=== PATIENT | male | born 1965 | race Caucasian/White ===

== ENCOUNTER 2016-10-10 11:21 | Emergency (ER) | payer MEDICARE, MEDICAID ==
[~2016-10-10] VITALS: Ht 170.2 cm; Wt 53.1 kg
[~2016-10-10 11:21] MED LIST: ACYC200C PO; ALPR1T PO; ALPR2TAB2 PO; AMPH15TA2 PO; AMPH30TA2 PO; DOXY100C2 PO; EFAV1TAB3 PO; EMTR1TAB9 PO; HDR4T PO; HYDR-229 PO; HYDR-3156 PO; HYDR25CA5 PO; HYDR4TAB PO; HYDR50CA3 PO; LD2JL30 EXT; OSLT75C PO; OXYC-12 PO; OXYC-465 PO; OXYC40TA49 PO; OXYC60TA9 PO; SULF1TAB35 PO
--- OUTSIDE RECORDS SUMMARY | 2016-10-10 11:26 | XMS REPORT | Continuity of Care Document ---
Author Author Interface Organization Interface Address Unknown Phone Unavailable Problems Problem Status Onset Date Classification Date Reported Comments Source Medications Medication Details Route Status Patient Instructions Ordering Provider Order Date Source Allergies, Adverse Reactions, Alerts Substance Category Reaction Severity Reaction type Status Date Reported Comments Source Immunizations Immunization Date Given Site Status Last Updated Comments Source Results Order Name Results Value Reference Range Date Interpretation Comments Source Vital Signs Vital Sign Value Date Comments Source Encounters Location Location Details Encounter Type Encounter Number Reason For Visit Attending Provider ADM Date DC Date Status [id number] Emergency [id number] PHONG MCDANIELS 07/28/2012 07/28/2012 Active [facility] Procedures Procedure Code Date Perfomer Comments Source
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
--- NOTE | 2016-10-10 13:09 | Diagnostic Imaging Report ---
Three views of the right shoulder. INDICATION: Injury. FINDINGS: There is a fracture of the medial aspect of the acromion where it attaches to the body of the scapula. There is mild displacement. The proximal humerus appears unremarkable. There is slight superior subluxation of the clavicle relative to the acromion at the acromioclavicular joint. The coracoclavicular interval is not widened. No radiopaque foreign body seen. IMPRESSION: 1. Fracture of the medial aspect of the acromion and superior margin of the scapula with slight displacement. 2. Suggestion of slight superior translation of the clavicle relative to the acromion at the acromioclavicular joint. The findings were called to Dr. Martin by Dr. Rubin at time of dictation. Dictated by: Dictated on workstation # [id number]
[2016-10-10] MEDS ORDERED: IBUPROFEN TABLET 200 MG TAB PO ONE (13:45)
[2016-10-10 13:50] VITALS: BP 134/97
== END 2016-10-10 13:50 | disposition home or self-care (01) ==
LOC: EDUNIT# 11:21 → ER 11:22
DX: S42.121A Displaced fracture of acromial process, right shoulder, initial encounter for closed fracture (principal); W00.0XXA Fall on same level due to ice and snow, initial encounter; Y99.8 Other external cause status
CPT/HCPCS: 73030

== ENCOUNTER 2017-01-06 11:04 | Emergency (ER) | payer MEDICARE, MEDICAID ==
[~2017-01-06] VITALS: Ht 172.7 cm; Wt 68.0 kg
--- NOTE | 2017-01-06 11:14 | ED Cough/URI ---
General Stated Complaint: NAUSEA, VOMITTING Source: patient, EMS Exam Limitations: no limitations History of Present Illness Time seen by provider: 11:13 Initial Comments This HIV positive male presents to ER per EMS from home with reports of a cough that resulted in posttussive emesis of 2 weeks duration. Cough is productive. No fevers. He also has nasal congestion. He states that he has been compliant with taking his HIV medications. Timing/Duration: constant Severity/Quality: moderate Associated Symptoms: cough, nasal congestion Allergies and Home Medications Allergies Coded Allergies: codeine (Verified Allergy, Unknown, 01/18/16) hydrocodone (Verified Allergy, Unknown, 01/18/16) Home Medications Alprazolam 2 Mg Tablet, 2 MG PO HS, (Reported) Amphet Asp/Amphet/D-Amphet 30 Mg Tablet, 30 MG PO BID, (Reported) Emtricitab/Rilpivirine/Tenofov 1 Each Tablet, 1 EACH PO DAILY, (Reported) Oxycodone Hcl 60 Mg Tab.sr.12h, 60 MG PO BID, (Reported) Oxycodone Hcl/Acetaminophen 1 Each Tablet, 1 EACH PO Q6H, #24 Ref 0 Prescribed by: ERLINDA LANGFORD on 09/08/14 1557 Constitutional: see HPI, No chills EENTM: see HPI Respiratory: see HPI, cough Genitourinary: no symptoms reported Musculoskeletal: no symptoms reported Skin: no symptoms reported Psychiatric/Neurological: No Symptoms Reported Hematologic/Lymphatic: No Symptoms Reported Past Vmuqxlh-Nywowe-Aabqsf Hx Patient Social History Type Used: Cigarettes Former Smoker/When Quit: Sep 28, 2013 Recent Hopitalizations: No Immunizations Up To Date Tetanus Booster (TDap): Less than 5yrs Date of Pneumonia Vaccine: Sep 28, 2012 Date of Influenza Vaccine: Jun 28, 2013 Seasonal Allergies Seasonal Allergies: No Surgeries HX Surgeries: Yes (JAW FX/ORIF, ANAL TRAUMA SURGERY) Respiratory Hx Respiratory Disorders: No Cardiovascular Hx Cardiac Disorders: Yes Cardiac Disorders: Syncope Neurological Hx Neurological Disorders: Yes (SYNCOPE) Reproductive System HIV/AIDS: Yes Genitourinary Hx Genitourinary Disorders: No Gastrointestinal Hx Gastrointestinal Disorders: Yes (HEPATITIS C, HIV +) Gastrointestinal Disorders: Hepatitis Musculoskeletal Hx Musculoskeletal Disorders: Yes Musculoskeletal Disorders: Fibromyalgia, Chronic Back Pain Endocrine Hx Endocrine Disorders: No HEENT HX ENT Disorders: No Cancer Hx Cancer: No Psychosocial Hx Psychiatric Problems: Yes Behavioral Health Disorders: ADD/ADHD, Sleep Difficulties, Anxiety Integumentary HX Skin/Integumentary Disorder: No Blood Transfusions Hx Blood Disorders: No Physical Exam Vital Signs Vital Sign - Last 12Hours 01/06/17 11:04 Temp 97.5 Pulse 86 Resp 18 B/P (MAP) 122/98 Pulse Ox 98 Capillary Refill : General Appearance: WD/WN, no apparent distress Eyes: Bilateral Eye EOMI, Bilateral Eye Normal Inspection, Bilateral Eye PERRL HEENT: PERRL/EOMI, normal ENT inspection, TMs normal Neck: non-tender, full range of motion Respiratory: no respiratory distress, no accessory muscle use, rhonchi Cardiovascular: regular rate, rhythm, no murmur Gastrointestinal: normal bowel sounds, non tender, soft Extremities: normal range of motion, non-tender Neurologic/Psychiatric: alert, normal mood/affect, oriented x 3 Skin: normal color, warm/dry Laceration Repair : Suture Size: 5-0 Progress/Results/Core Measures Results/Orders Lab Results Laboratory Tests Test 01/06/17 11:42 01/06/17 12:20 Range/Units White Blood Count 7.9 4.3-11.0 10^3/uL Red Blood Count 6.08 H 4.35-5.85 10^6/uL Hemoglobin 13.8 13.3-17.7 G/DL Hematocrit 43 40-54 % Mean Corpuscular Volume 71 L 80-99 FL Mean Corpuscular Hemoglobin 23 L 25-34 PG Mean Corpuscular Hemoglobin Concent 32 32-36 G/DL Red Cell Distribution Width 14.7 H 10.0-14.5 % Platelet Count 191 130-400 10^3/uL Mean Platelet Volume 7.4-10.4 FL Neutrophils (%) (Auto) 56 42-75 % Lymphocytes (%) (Auto) 28 12-44 % Monocytes (%) (Auto) 14 H 0-12 % Eosinophils (%) (Auto) 2 0-10 % Basophils (%) (Auto) 1 0-10 % Neutrophils # (Auto) 4.4 1.8-7.8 X 10^3 Lymphocytes # (Auto) 2.2 1.0-4.0 X 10^3 Monocytes # (Auto) 1.1 H 0.0-1.0 X 10^3 Eosinophils # (Auto) 0.1 0.0-0.3 10^3/uL Basophils # (Auto) 0.0 0.0-0.1 10^3/uL Sodium Level 135 135-145 MMOL/L Potassium Level 4.4 3.6-5.0 MMOL/L Chloride Level 102 98-107 MMOL/L Carbon Dioxide Level 24 21-32 MMOL/L Anion Gap 9 5-14 MMOL/L Blood Urea Nitrogen 13 7-18 MG/DL Creatinine 0.77 0.60-1.30 MG/DL Estimat Glomerular Filtration Rate > 60 BUN/Creatinine Ratio 17 Glucose Level 74 70-105 MG/DL Calcium Level 8.7 8.5-10.1 MG/DL Total Bilirubin 0.6 0.1-1.0 MG/DL Aspartate Amino Transf (AST/SGOT) 38 H 5-34 U/L Alanine Aminotransferase (ALT/SGPT) 32 0-55 U/L Alkaline Phosphatase 94 40-136 U/L Total Protein 9.1 H 6.4-8.2 G/DL Albumin 3.7 3.2-4.5 G/DL My Orders Orders - AISSATOU REDDY APRN Cbc With Automated Diff (01/06/17 11:12) Comprehensive Metabolic Panel (01/06/17 11:12) Chest Pa/Lat (2 View) (01/06/17 11:12) Sputum Culture (01/06/17 11:12) Vital Signs/I&O Vital Sign - Last 12Hours 01/06/17 11:04 Temp 97.5 Pulse 86 Resp 18 B/P (MAP) 122/98 Pulse Ox 98 Diagnostic Imaging Diagonstic Imaging: Xray Plain Films/CT/US/NM/MRI: chest Comments NAME: KIMBERLY RIVERO [facility] REC#: [id number] PT STATUS: REG ER : 1965 PHYSICIAN: AISSATOU REDDY APRN ADMIT DATE: 01/06/17/ER Draft Date of Exam:01/06/17 CHEST PA/LAT (2 VIEW) PA and lateral views of the chest. INDICATION: Chest tightness, productive cough, and shortness of breath. FINDINGS: In the left lung apex there is an area of opacity with lucency and evidence of traction to the trachea similar to 06/16/2016. This is suggestive of fibrotic changes. There is also area of mild scarring in the perihilar region bilaterally. A small area of right infrahilar atelectasis or infiltrate is seen, new from the prior exam. The heart size is normal. No effusion or pneumothorax. The mediastinum and ekaterina appear unremarkable. IMPRESSION: Background fibrotic changes presumably related to prior old infections. There is new mild right basilar infiltrate or atelectasis. Dictated on workstation # [id number] Dict: 01/06/17 1135 Trans: 01/06/17 1148 [id number] Interpreted by: SHYAM GONZALEZ MD Electronically signed by: Departure Communication Progress Notes We will treat his pneumonia empirically as an outpatient given that he is not hypoxic and requires no supportive therapy with Bactrim and Levaquin. Levaquin to cover the typical lobar pneumonia pathogens and Bactrim to cover for Pneumocystis jiroveci since he is immunocompromised and his compliance with antiretroviral therapy is questionable. Impression Impression: Primary Impression: Pneumonia Disposition: 01 HOME, SELF-CARE Condition: Improved Departure-Patient Inst. Decision time for Depature: 13:13 Referrals: NO,LOCAL PHYSICIAN (PCP/Family) Primary Care Physician Patient Instructions: Community-Acquired Pneumonia in Adults Add. Discharge Instructions: 1. Antibiotics as directed 2. Return to ER for any concerns 3. See your doctor later this week for recheck Scripts Levofloxacin (Levaquin) 500 Mg Tablet 500 MG PO DAILY for 7 Days, TAB Prov: AISSATOU REDDY APRN 01/06/17 Sulfamethoxazole/Trimethoprim (Bactrim Ds Tablet) 1 Each Tablet 1 EACH PO BID, #20 TAB Prov: AISSATOU REDDY APRN 01/06/17 AISSATOU REDDY APRN Jan 06, 2017 11:14
[2017-01-06 11:49] LABS: BASOPHILS % (AUTO) 1 % (0-10); EOSINOPHILS # (AUTO) 0.1 10^3/uL (0.0-0.3); EOSINOPHILS % (AUTO) 2 % (0-10); LYMPHOCYTES # (AUTO) 2.2 X 10^3 (1.0-4.0); LYMPHOCYTES % (AUTO) 28 % (12-44); MEAN CORPUSCULAR HEMOGLOBIN 23 PG (25-34); MEAN CORPUSCULAR HGB CONC 32 G/DL (32-36); MEAN CORPUSCULAR VOLUME 71 FL (80-99); MONOCYTES # (AUTO) 1.1 X 10^3 (0.0-1.0); MONOCYTES % (AUTO) 14 % (0-12); NEUTROPHILS # (AUTO) 4.4 X 10^3 (1.8-7.8); NEUTROPHILS % (AUTO) 56 % (42-75); PLATELET COUNT 191 10^3/uL (130-400); RED BLOOD COUNT 6.08 10^6/uL (4.35-5.85); RED CELL DISTRIBUTION WIDTH 14.7 % (10.0-14.5); WHITE BLOOD COUNT 7.9 10^3/uL (4.3-11.0)
--- NOTE | 2017-01-06 11:49 | Diagnostic Imaging Report ---
PA and lateral views of the chest. INDICATION: Chest tightness, productive cough, and shortness of breath. FINDINGS: In the left lung apex there is an area of opacity with lucency and evidence of traction to the trachea similar to 06/16/2016. This is suggestive of fibrotic changes. There is also area of mild scarring in the perihilar region bilaterally. A small area of right infrahilar atelectasis or infiltrate is seen, new from the prior exam. The heart size is normal. No effusion or pneumothorax. The mediastinum and ekaterina appear unremarkable. IMPRESSION: Background fibrotic changes presumably related to prior old infections. There is new mild right basilar infiltrate or atelectasis. Dictated by: Dictated on workstation # [id number]
[2017-01-06 13:03] LABS: ALANINE AMINOTRANSFERASE 32 U/L (0-55); ALBUMIN 3.7 G/DL (3.2-4.5); ANION GAP 9 MMOL/L (5-14); ASPARTATE AMINO TRANSFERASE 38 U/L (5-34); BILIRUBIN,TOTAL 0.6 MG/DL (0.1-1.0); BLOOD UREA NITROGEN 13 MG/DL (7-18); BUN/CREATININE RATIO 17; CALCIUM 8.7 MG/DL (8.5-10.1); CARBON DIOXIDE 24 MMOL/L (21-32); CHLORIDE 102 MMOL/L (98-107); CREATININE SERUM 0.77 MG/DL (0.60-1.30); GFR ESTIMATED > 60; GLUCOSE 74 MG/DL (70-105); POTASSIUM 4.4 MMOL/L (3.6-5.0); SODIUM 135 MMOL/L (135-145); TOTAL PROTEIN 9.1 G/DL (6.4-8.2)
[2017-01-06] MEDS ORDERED: SULF1TAB35 PO (13:15)
[2017-01-06] MEDS ORDERED: LEVO500T2 PO (13:15)
[2017-01-06 13:30] VITALS: BP 118/86
== END 2017-01-06 13:30 | disposition home or self-care (01) ==
LOC: EDUNIT# 11:04 → ER 11:06
DX: J18.9 Pneumonia, unspecified organism (principal); B19.20 Unspecified viral hepatitis C without hepatic coma; B20 Human immunodeficiency virus [HIV] disease
CPT/HCPCS: 36415; 71020; 80053; 85025

== ENCOUNTER 2017-07-07 15:44 | Emergency (ER) | payer MEDICARE, MEDICAID ==
[~2017-07-07] VITALS: Ht 172.7 cm; Wt 68.0 kg
[~2017-07-07 15:44] MED LIST changes: +LEVO500T2 PO
--- OUTSIDE RECORDS SUMMARY | 2017-07-07 16:18 | XMS REPORT | Continuity of Care Document ---
Author Author [employer] Organization [facility] Address Unknown Phone Unavailable Care Team Providers Care Director Child Name Role Phone [employer] Unavailable Unavailable Problems Medications Allergies, Adverse Reactions, Alerts Immunizations Results Vital Signs Encounters Location Location Details Encounter Type Encounter Number Reason For Visit Attending Provider ADM Date DC Date Status Source [facility] [id number] Emergency [id number] PHONG ARRIAGAMUSSEN 07/28/2012 07/28/2012 Active [facility] Procedures Plan of Care Social History Assessment and Plan Family History Value Date Source Advance Directives Order Name Results Value Date Source
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
[2017-07-07 17:06] LABS: BASOPHILS % (AUTO) 1 % (0-10); EOSINOPHILS % (AUTO) 0 % (0-10); LYMPHOCYTES # (AUTO) 1.8 X 10^3 (1.0-4.0); LYMPHOCYTES % (AUTO) 24 % (12-44); MEAN CORPUSCULAR HEMOGLOBIN 23 PG (25-34); MEAN CORPUSCULAR HGB CONC 32 G/DL (32-36); MEAN CORPUSCULAR VOLUME 72 FL (80-99); MEAN PLATELET VOLUME 11.4 FL (7.4-10.4); MONOCYTES # (AUTO) 0.6 X 10^3 (0.0-1.0); MONOCYTES % (AUTO) 9 % (0-12); NEUTROPHILS # (AUTO) 4.9 X 10^3 (1.8-7.8); NEUTROPHILS % (AUTO) 66 % (42-75); PLATELET COUNT 323 10^3/uL (130-400); RED BLOOD COUNT 4.77 10^6/uL (4.35-5.85); RED CELL DISTRIBUTION WIDTH 14.3 % (10.0-14.5); WHITE BLOOD COUNT 7.4 10^3/uL (4.3-11.0)
[2017-07-07] MEDS ORDERED: SULF1TAB35 PO (17:20)
[2017-07-07] MEDS ORDERED: CEPH500C PO (17:20)
[2017-07-07 17:23] LABS: ANION GAP 8 MMOL/L (5-14); BLOOD UREA NITROGEN 9 MG/DL (7-18); BUN/CREATININE RATIO 11; CALCIUM 8.9 MG/DL (8.5-10.1); CARBON DIOXIDE 26 MMOL/L (21-32); CHLORIDE 99 MMOL/L (98-107); CREATININE SERUM 0.84 MG/DL (0.60-1.30); GFR ESTIMATED > 60; GLUCOSE 108 MG/DL (70-105); POTASSIUM 3.5 MMOL/L (3.6-5.0); SODIUM 133 MMOL/L (135-145)
[2017-07-07] MEDS ORDERED: CLINDAMYCIN 600 MG/4ML (CLEOCIN) VIAL IM ONE (17:30)
[2017-07-07 17:43] VITALS: BP 110/78
== END 2017-07-07 17:43 | disposition home or self-care (01) ==
LOC: EDUNIT# 15:44 → ER 15:47
DX: L02.416 Cutaneous abscess of left lower limb (principal); F90.9 Attention-deficit hyperactivity disorder, unspecified type; Z21 Asymptomatic human immunodeficiency virus [HIV] infection status; Z87.19 Personal history of other diseases of the digestive system
CPT/HCPCS: 36415; 80048; 85025; 87070; 87077; 87186; 87205; 99283

== ENCOUNTER 2017-07-18 10:17 | Emergency (ER) | payer MEDICARE, MEDICAID ==
[~2017-07-18] VITALS: Ht 170.2 cm; Wt 51.7 kg
[~2017-07-18 10:17] MED LIST changes: +CEPH500C PO
[2017-07-18] MEDS ORDERED: SULF1TAB35 PO (10:37)
--- NOTE | 2017-07-18 10:37 | ED Lower Extremity ---
General Stated Complaint: L LEG SWELLING AND PAIN, OLD LACERATION WOUND Source: patient Exam Limitations: no limitations History of Present Illness Time seen by provider: 10:33 Initial Comments To ER with left leg pain and swelling. He was here 11 days ago for a wound to the left anterior lateral lower leg. This is been draining some pus. Culture was collected. He was in. Started on Keflex. He reports that it did get better on its own but presents today with a new pustule. Culture showed MRSA course was not sensitive to Keflex. He denies any systemic symptoms such as fevers chills or malaise. States that he continues to take his Complera HIV medication. Onset: yesterday Severity: moderate Pain/Injury Location: left leg Modifying Factors: Worse With Movement Allergies and Home Medications Allergies Coded Allergies: codeine (Verified Allergy, Unknown, 01/18/16) hydrocodone (Verified Allergy, Unknown, 01/18/16) Home Medications Alprazolam 2 Mg Tablet, 2 MG PO HS, (Reported) Amphet Asp/Amphet/D-Amphet 30 Mg Tablet, 30 MG PO BID, (Reported) Cephalexin 500 Mg Capsule, 500 MG PO QID, #28 Prescribed by: AISSATOU REDDY on 07/07/17 1720 Emtricitab/Rilpivirine/Tenofov 1 Each Tablet, 1 EACH PO DAILY, (Reported) Levofloxacin 500 Mg Tablet, 500 MG PO DAILY for 7 Days Prescribed by: AISSATOU REDDY on 01/06/17 1315 Oxycodone Hcl 60 Mg Tab.sr.12h, 60 MG PO BID, (Reported) Oxycodone Hcl/Acetaminophen 1 Each Tablet, 1 EACH PO Q6H, #24 Ref 0 Prescribed by: ERLINDA LANGFORD on 09/08/14 1557 Sulfamethoxazole/Trimethoprim 1 Each Tablet, 1 EACH PO BID, #20 Prescribed by: AISSATOU REDDY on 01/06/17 1315 Sulfamethoxazole/Trimethoprim 1 Each Tablet, 1 EACH PO BID, #14 Prescribed by: AISSATOU REDDY on 07/07/17 1720 Constitutional: see HPI, No chills EENTM: see HPI Respiratory: no symptoms reported Cardiovascular: no symptoms reported Genitourinary: no symptoms reported Musculoskeletal: no symptoms reported Skin: see HPI Psychiatric/Neurological: No Symptoms Reported Past Uucpnei-Napfwt-Cupcnw Hx Patient Social History Type Used: Cigarettes Former Smoker, Quit: Apr 07, 2017 Recent Foreign Travel: No Contact w/Someone Who Travel: No Recent Hopitalizations: No Immunizations Up To Date Tetanus Booster (TDap): Less than 5yrs Date of Pneumonia Vaccine: Sep 28, 2012 Date of Influenza Vaccine: Jun 28, 2013 Seasonal Allergies Seasonal Allergies: No Surgeries History of Surgeries: Yes (JAW FX/ORIF, ANAL TRAUMA SURGERY) Surgeries: Gallbladder Respiratory History of Respiratory Disorde: No Cardiovascular History of Cardiac Disorders: Yes Cardiac Disorders: Syncope Neurological History of Neurological Disord: Yes (SYNCOPE) Reproductive System HIV/AIDS: Yes Gastrointestinal History of Gastrointestinal Di: Yes (HEPATITIS C, HIV +) Gastrointestinal Disorders: Hepatitis Musculoskeletal History of Musculoskeletal Dis: Yes Musculoskeletal Disorders: Fibromyalgia, Chronic Back Pain Endocrine History of Endocrine Disorders: No Cancer History of Cancer: No Psychosocial History of Psychiatric Problem: Yes Behavioral Health Disorders: ADD/ADHD, Sleep Difficulties, Anxiety Integumentary History of Skin or Integumenta: No Blood Transfusions History of Blood Disorders: No Physical Exam Vital Signs Capillary Refill : General Appearance: WD/WN, no apparent distress, thin HEENT: PERRL/EOMI, normal ENT inspection Neck: non-tender, full range of motion Respiratory: no respiratory distress, no accessory muscle use Gastrointestinal: normal bowel sounds, non tender Hips: bilateral hip non-tender, bilateral hip normal inspection, bilateral hip normal range of motion Legs: right leg non-tender, right leg normal inspection, bilateral leg normal range of motion, left leg pain, left leg soft tissue tenderness, left leg other (there is a small 0.5 cm pustule to the anterior lateral aspect of the left leg. There is only about 3-4 mm of surrounding erythema. This was unroofed easily with a blunt tipped needle. Purulent material was expressed. Since we have a culture from 10 daysDid not reculture this. This was covered with a Band -Aid and we'll change him to Bactrim) Ankles: bilateral ankle non-tender, bilateral ankle normal inspection, bilateral ankle normal range of motion Feet: bilateral foot non-tender, bilateral foot normal inspection, bilateral foot normal range of motion Neurologic/Psychiatric: alert, normal mood/affect, oriented x 3 Skin: normal color, warm/dry Laceration Repair : Suture Size: 5-0 Departure Impression Impression: Primary Impression: Abscess of leg Disposition: 01 HOME, SELF-CARE Condition: Stable Departure-Patient Inst. Decision time for Depature: 10:36 Referrals: NO,LOCAL PHYSICIAN (PCP/Family) Primary Care Physician Patient Instructions: ABSCESS Add. Discharge Instructions: 1. Warm compresses to this area 2. Change the Band-Aid daily 3. Take the antibiotics until they're completely gone. Scripts Sulfamethoxazole/Trimethoprim (Bactrim Ds Tablet) 1 Each Tablet 1 EACH PO BID, #20 TAB Prov: AISSATOU REDDY APRN 07/18/17 AISSATOU REDDY APRN Jul 18, 2017 10:37
[2017-07-18 10:40] VITALS: BP 134/92
== END 2017-07-18 10:40 | disposition home or self-care (01) ==
LOC: EDUNIT# 10:17 → ER 10:19
DX: M79.605 Pain in left leg (principal); F90.9 Attention-deficit hyperactivity disorder, unspecified type; Z21 Asymptomatic human immunodeficiency virus [HIV] infection status; Z87.891 Personal history of nicotine dependence
CPT/HCPCS: 99282

== ENCOUNTER 2017-07-28 01:08 | Emergency (ER) | payer MEDICARE, MEDICAID ==
[~2017-07-28] VITALS: Ht 165.1 cm; Wt 54.4 kg
[~2017-07-28 01:08] MED LIST changes: +OXYC-471 PO
--- NOTE | 2017-07-28 01:25 | ED Integumentary General ---
General Chief Complaint: General Problems/Pain Stated Complaint: LEG PAIN Source: patient, EMS Exam Limitations: no limitations History of Present Illness Time seen by provider: 01:17 Initial Comments Patient represent [facility] ER by EMS with a chief complaint that he was having some swelling redness pain in his left lower leg less than one day after having it lanced in the ER by this provider. He says his left leg was getting numb and tingly It hurt to walk on his leg. He has been following the directions used one tablet of the oxycodone and cleaning it in the shower with soap and water only. He has left the wound open to air on home. It has not drained very much. He's had no nausea, fevers, chills, vomiting, diarrhea, rash. He called his home health nurse and they told him to calm down and if she was worried about it take it back to the ER tonight. Allergies and Home Medications Allergies Coded Allergies: codeine (Verified Allergy, Unknown, 01/18/16) hydrocodone (Verified Allergy, Unknown, 01/18/16) Home Medications Alprazolam 2 Mg Tablet, 2 MG PO HS, (Reported) Amphet Asp/Amphet/D-Amphet 30 Mg Tablet, 30 MG PO BID, (Reported) Emtricitab/Rilpivirine/Tenofov 1 Each Tablet, 1 EACH PO DAILY, (Reported) Oxycodone HCl/Acetaminophen 1 Each Tablet, 1 EACH PO Q6H PRN for PAIN, #10 Ref 0 Prescribed by: MUSHTAQ MAYO on 07/27/170 Oxycodone Hcl 60 Mg Tab.sr.12h, 60 MG PO BID, (Reported) Oxycodone Hcl/Acetaminophen 1 Each Tablet, 1 EACH PO Q6H, #24 Ref 0 Prescribed by: ERLINDA LANGFORD on 09/08/14 1557 Sulfamethoxazole/Trimethoprim 1 Each Tablet, 1 EACH PO BID for 5 Days, #10 Ref 0 Prescribed by: MUSHTAQ MAYO on 07/27/170 Constitutional: No chills, No diaphoresis, No fever, No malaise Respiratory: No cough, No short of breath Cardiovascular: No chest pain, No palpitations Gastrointestinal: No abdominal pain, No constipation, No diarrhea, No nausea Genitourinary: No discharge, No dysuria Musculoskeletal: see HPI, No joint pain, No joint swelling Skin: see HPI Psychiatric/Neurological: Denies Headache, Numbness, Paresthesia Past Bdkeekf-Eejwys-Wblgch Hx Patient Social History Alcohol Use: Denies Use Recreational Drug Use: No Smoking Status: Current Everyday Smoker Type Used: Cigarettes Former Smoker, Quit: Apr 07, 2017 2nd Hand Smoke Exposure: Yes Recent Foreign Travel: No Contact w/Someone Who Travel: No Recent Hopitalizations: No Physical Abuse: No Sexual Abuse: No Mistreated: No Fear: No Immunizations Up To Date Tetanus Booster (TDap): Less than 5yrs Date of Pneumonia Vaccine: Sep 28, 2012 Date of Influenza Vaccine: Jun 28, 2013 Seasonal Allergies Seasonal Allergies: No Surgeries History of Surgeries: Yes (JAW FX/ORIF, ANAL TRAUMA SURGERY) Surgeries: Gallbladder Respiratory History of Respiratory Disorde: No Cardiovascular History of Cardiac Disorders: Yes Cardiac Disorders: Syncope Neurological History of Neurological Disord: Yes (SYNCOPE) Reproductive System HIV/AIDS: Yes Gastrointestinal History of Gastrointestinal Di: Yes (HEPATITIS C, HIV +) Gastrointestinal Disorders: Hepatitis Musculoskeletal History of Musculoskeletal Dis: Yes Musculoskeletal Disorders: Fibromyalgia, Chronic Back Pain Endocrine History of Endocrine Disorders: No Cancer History of Cancer: No Psychosocial History of Psychiatric Problem: Yes Behavioral Health Disorders: ADD/ADHD, Sleep Difficulties, Anxiety Suicide Risk Score: 0 Integumentary History of Skin or Integumenta: No Blood Transfusions History of Blood Disorders: No Physical Exam Vital Signs Vital Sign - Last 12Hours 07/28/17 01:08 Temp 98.1 Pulse 94 Resp 24 B/P (MAP) 166/111 Pulse Ox 99 O2 Delivery Room Air Capillary Refill : General Appearance: WD/WN, no apparent distress HEENT: PERRL/EOMI, pharynx normal Neck: non-tender, normal inspection Cardiovascular: normal peripheral pulses, regular rate, rhythm Respiratory: chest non-tender, lungs clear, normal breath sounds Gastrointestinal: non tender, soft Extremities: no pedal edema, no calf tenderness Neurologic/Psychiatric: alert, oriented x 3, other (anxious; he has sensation proximal and distal to the wound as well as his foot. He has good pulses in the dorsal pedal and has motor function intact. He is walking on his own power without a limp.) Skin: other (leg has erythema however the large nodule from the abscess drained last night is now gone and the wound is still open with only scant amount of drainage. It is much improved from yesterday. There is no area of fluctuance or anything expressed from the wound.) Laceration Repair : Suture Size: 5-0 Progress/Results/Core Measures Results/Orders Vital Signs/I&O Vital Sign - Last 12Hours 07/28/17 01:08 Temp 98.1 Pulse 94 Resp 24 B/P (MAP) 166/111 Pulse Ox 99 O2 Delivery Room Air Departure Impression Impression: Primary Impression: Abscess Additional Impression: Encounter for wound re-check Disposition: HOME, SELF-CARE Condition: Stable Departure-Patient Inst. Decision time for Depature: 01:24 Referrals: NO,LOCAL PHYSICIAN (PCP/Family) Primary Care Physician Patient Instructions: Abscess Incision and Drainage (DC) Add. Discharge Instructions: Your wound is healing well. Continue to take the antibiotics as described. Use ibuprofen 3 tablets or 600 mg every 6 hours as needed for pain or flushing. You may also use Tylenol 1000 mg every 8 hours as needed for pain. Please apply a warm pack or ice pack over the leg. The heat will help with the pain and the ice will bring the swelling down. Keep your planned appointment with Dr. Woods in [place] on the third. If you begin to have systemic symptoms such as fever, nausea and vomiting or diarrhea you should return to your doctor or you may come back to the ER. Keep the wound clean and it is okay to put a light gauze dressing over the wound to catch the drainage. All discharge instructions reviewed with patient and/or family. Voiced understanding. MUSHTAQ MAYO Jul 28, 2017 01:25
[2017-07-28 01:28] VITALS: BP 0/0
== END 2017-07-28 01:28 | disposition home or self-care (01) ==
LOC: EDUNIT# 01:12 → ER 01:14
DX: L02.416 Cutaneous abscess of left lower limb (principal); F41.9 Anxiety disorder, unspecified; F17.210 Nicotine dependence, cigarettes, uncomplicated; Z21 Asymptomatic human immunodeficiency virus [HIV] infection status; Z87.19 Personal history of other diseases of the digestive system
CPT/HCPCS: 99283

== ENCOUNTER 2017-10-30 11:08 | Emergency (ER) | payer MEDICARE, MEDICAID ==
[~2017-10-30] VITALS: Ht 157.5 cm; Wt 45.4 kg
--- OUTSIDE RECORDS SUMMARY | 2017-10-30 11:15 | XMS REPORT | Clinical Summary ---
Author Author [facility] Address Unknown Phone Unavailable Care Team Providers Care Senior Cobol Developer Name Role Phone PP Unavailable Allergies Not on File Current Medications Not on file Active Problems Not on file Social History Tobacco Use Types Packs/Day Years Used Date Never Assessed Sex Assigned at Date Recorded Not on file Plan of Treatment Health Maintenance Due Date Last Done Comments Hepatitis C Screening 1965 DTaP,Tdap,and Td Vaccines 1984 (1 - Tdap) Colon Cancer Screening 2015 Influenza Vaccine (#1) 2017 Results Not on filefrom Last 3 Months
--- OUTSIDE RECORDS SUMMARY | 2017-10-30 11:15 | XMS REPORT | Continuity of Care Document ---
Author Author [employer] [facility] Address Unknown Phone Unavailable Care Team Providers Care Keyboard Operator Name Role Phone [employer] Unavailable Unavailable Problems Medications Allergies, Adverse Reactions, Alerts Immunizations Results Vital Signs Encounters Location Location Details Encounter Type Encounter Number Reason For Visit Attending Provider ADM Date DC Date Status [id number] [id number] PHONG MCDANIELS 07/28/2012 07/28/2012 Active [facility] Procedures Plan of Care Social History Assessment and Plan Family History Advance Directives Functional Status
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
[2017-10-30] MEDS ORDERED: RT-ALBUTEROL/IPRATROPIUM 3 ML (DUONEB) VIAL ONE (11:21)
--- NOTE | 2017-10-30 11:23 | ED General ---
General Stated Complaint: FLU LIKE SYMPTOMS Source of Information: Patient Exam Limitations: No Limitations History of Present Illness Date Seen by Provider: Oct 30, 2017 Time Seen by Provider: 11:21 Initial Comments I distended to ER with flulike symptoms 3 days. He reports nausea, vomiting, diarrhea, cough, body aches, fevers. Only today did have fevers and this was up to 103. Currently he is 101. He is not taking anything at home for the fevers. He is HIV positive and he claims to be taking his Complera but he has not been entirely honest with me during previous visits about this so have not verified this. Timing/Duration: 2-3 Days Severity: Moderate Associated Systoms: Malaise, Nausea/Vomiting, Weakness Allergies and Home Medications Allergies Coded Allergies: codeine (Verified Allergy, Unknown, 01/18/16) hydrocodone (Verified Allergy, Unknown, 01/18/16) Home Medications Alprazolam 2 Mg Tablet, 2 MG PO HS, (Reported) Amphet Asp/Amphet/D-Amphet 30 Mg Tablet, 30 MG PO BID, (Reported) Azithromycin 250 Mg Tablet, 250 MG PO DAILY, #4 Prescribed by: AISSATOU REDDY on 10/30/17 1240 Cefdinir 300 Mg Capsule, 300 MG PO BID, #14 Prescribed by: AISSATOU REDDY on 10/30/17 1240 Emtricitab/Rilpivirine/Tenofov 1 Each Tablet, 1 EACH PO DAILY, (Reported) Oxycodone HCl/Acetaminophen 1 Each Tablet, 1 EACH PO Q6H PRN for PAIN, #10 Ref 0 Prescribed by: MUSHTAQ MAYO on 07/27/17 0310 Oxycodone Hcl 60 Mg Tab.sr.12h, 60 MG PO BID, (Reported) Oxycodone Hcl/Acetaminophen 1 Each Tablet, 1 EACH PO Q6H, #24 Ref 0 Prescribed by: ERLINDA LANGFORD on 09/08/14 1557 Sulfamethoxazole/Trimethoprim 1 Each Tablet, 1 EACH PO BID for 5 Days, #10 Ref 0 Prescribed by: MUSHTAQ MAYO on 07/27/17 0310 Constitutional: see HPI EENTM: see HPI Respiratory: see HPI, cough Cardiovascular: no symptoms reported Genitourinary: no symptoms reported Musculoskeletal: no symptoms reported Skin: no symptoms reported Psychiatric/Neurological: No Symptoms Reported Past Njmuxip-Dtawwe-Rjciqv Hx Patient Social History Type Used: Cigarettes Former Smoker, Quit: Apr 07, 2017 2nd Hand Smoke Exposure: Yes Recent Foreign Travel: No Contact w/Someone Who Travel: No Recent Hopitalizations: No Immunizations Up To Date Tetanus Booster (TDap): Less than 5yrs Date of Pneumonia Vaccine: Sep 28, 2012 Date of Influenza Vaccine: Jun 28, 2013 Seasonal Allergies Seasonal Allergies: No Surgeries History of Surgeries: Yes (JAW FX/ORIF, ANAL TRAUMA SURGERY) Surgeries: Gallbladder Respiratory History of Respiratory Disorde: No Cardiovascular History of Cardiac Disorders: Yes Cardiac Disorders: Syncope Neurological History of Neurological Disord: Yes (SYNCOPE) Reproductive System HIV/AIDS: Yes Gastrointestinal History of Gastrointestinal Di: Yes (HEPATITIS C, HIV +) Gastrointestinal Disorders: Hepatitis Musculoskeletal History of Musculoskeletal Dis: Yes Musculoskeletal Disorders: Fibromyalgia, Chronic Back Pain Endocrine History of Endocrine Disorders: No Cancer History of Cancer: No Psychosocial History of Psychiatric Problem: Yes Behavioral Health Disorders: ADD/ADHD, Sleep Difficulties, Anxiety Integumentary History of Skin or Integumenta: No Blood Transfusions History of Blood Disorders: No Physical Exam Vital Signs Vital Sign - Last 12Hours 10/30/17 11:24 Temp 101.0 Pulse 99 Resp 18 B/P (MAP) 112/66 (81) Pulse Ox 96 O2 Delivery Room Air Capillary Refill : General Appearance: No Apparent Distress, WD/WN, Thin Eyes: Bilateral Eye Normal Inspection, Bilateral Eye PERRL, Bilateral Eye EOMI HEENT: PERRL/EOMI, TMs Normal Neck: Full Range of Motion, Normal Inspection Respiratory: No Accessory Muscle Use, No Respiratory Distress, Wheezing ( diffusely wheezing) Cardiovascular: Regular Rate, Rhythm, Normal Peripheral Pulses Gastrointestinal: Normal Bowel Sounds, Non Tender, Soft Extremity: Normal Capillary Refill, Normal Inspection Neurologic/Psychiatric: Alert, Oriented x3, No Motor/Sensory Deficits Skin: Normal Color, Warm/Dry Focused Exam Evaluation Lactate Level Laboratory Tests 10/30/17 12:47: Lactic Acid Level 2.10*H Lactic Acid Level Laboratory Tests Test 10/30/17 12:47 Lactic Acid Level 2.10 MMOL/L (0.50-2.00) *H Laceration Repair : Suture Size: 5-0 Progress/Results/Core Measures Suspected Sepsis SIRS Temperature: Pulse: Respiratory Rate: Laboratory Tests 10/30/17 11:31: White Blood Count 11.2H Blood Pressure / Mean: Laboratory Tests 10/30/17 12:47: Lactic Acid Level 2.10*H Laboratory Tests 10/30/17 11:31: Creatinine 1.14, Platelet Count 191, Total Bilirubin 1.6H Results/Orders Lab Results Laboratory Tests Test 10/30/17 11:31 10/30/17 12:47 Range/Units White Blood Count 11.2 H 4.3-11.0 10^3/uL Red Blood Count 5.35 4.35-5.85 10^6/uL Hemoglobin 12.5 L 13.3-17.7 G/DL Hematocrit 38 L 40-54 % Mean Corpuscular Volume 70 L 80-99 FL Mean Corpuscular Hemoglobin 23 L 25-34 PG Mean Corpuscular Hemoglobin Concent 33 32-36 G/DL Red Cell Distribution Width 14.1 10.0-14.5 % Platelet Count 191 130-400 10^3/uL Mean Platelet Volume 12.2 H 7.4-10.4 FL Neutrophils (%) (Auto) 80 H 42-75 % Lymphocytes (%) (Auto) 14 12-44 % Monocytes (%) (Auto) 6 0-12 % Eosinophils (%) (Auto) 0 0-10 % Basophils (%) (Auto) 0 0-10 % Neutrophils # (Auto) 8.9 H 1.8-7.8 X 10^3 Lymphocytes # (Auto) 1.6 1.0-4.0 X 10^3 Monocytes # (Auto) 0.7 0.0-1.0 X 10^3 Eosinophils # (Auto) 0.0 0.0-0.3 10^3/uL Basophils # (Auto) 0.0 0.0-0.1 10^3/uL Sodium Level 130 L 135-145 MMOL/L Potassium Level 3.7 3.6-5.0 MMOL/L Chloride Level 96 L 98-107 MMOL/L Carbon Dioxide Level 23 21-32 MMOL/L Anion Gap 11 5-14 MMOL/L Blood Urea Nitrogen 22 H 7-18 MG/DL Creatinine 1.14 0.60-1.30 MG/DL Estimat Glomerular Filtration Rate > 60 BUN/Creatinine Ratio 19 Glucose Level 94 70-105 MG/DL Calcium Level 8.7 8.5-10.1 MG/DL Total Bilirubin 1.6 H 0.1-1.0 MG/DL Aspartate Amino Transf (AST/SGOT) 42 H 5-34 U/L Alanine Aminotransferase (ALT/SGPT) 33 0-55 U/L Alkaline Phosphatase 56 40-136 U/L Total Protein 9.1 H 6.4-8.2 GM/DL Albumin 3.8 3.2-4.5 GM/DL Lactic Acid Level 2.10 *H 0.50-2.00 MMOL/L Micro Results Microbiology 10/30/17 Influenza Types A,B Antigen (NALINI) - Final, Complete My Orders Orders - AISSATOU REDDY APRN Cbc With Automated Diff (10/30/17 11:19) Comprehensive Metabolic Panel (10/30/17 11:19) Ua Culture If Indicated (10/30/17 11:19) Drug Screen Stat (Urine) (10/30/17 11:19) Chest Pa/Lat (2 View) (10/30/17 11:19) Blood Culture (10/30/17 11:19) Lactic Acid Analyzer (10/30/17 11:19) Saline Lock/Iv-Start (10/30/17 11:19) Ns Iv 1000 Ml (Sodium Chloride 0.9%) (10/30/17 11:30) Influenza A And B Antigens (10/30/17 11:19) Albuterol/Ipra Inhalation Soln (Duoneb I (10/30/17 11:30) Svn Sm Volume Nebulizer Rt-Rfs (10/30/17 11:19) Albuterol/Ipra Inhalation Soln (Duoneb I (10/30/17 11:21) Acetaminophen Tablet (Tylenol Tablet) (10/30/17 11:45) Ceftriaxone Injection (Rocephin Injectio (10/30/17 12:30) Azithromycin Tablet (Zithromax Tablet) (10/30/17 12:45) Medications Given in ED Current Medications Medications Dose Ordered Sig/Marcela Route Start Time Stop Time Status Last Admin Dose Admin Acetaminophen 1,000 mg ONCE ONCE PO 10/30/17 11:45 10/30/17 11:46 DC 10/30/17 11:53 1,000 MG Albuterol/ Ipratropium 3 ml ONCE ONCE INH 10/30/17 11:30 10/30/17 11:31 DC 2/2/18 11:26 3 ML Ceftriaxone Sodium 1000 mg/ Sodium Chloride 50 ml @ 100 mls/hr ONCE ONCE IV 10/30/17 12:30 10/30/17 12:59 DC 10/30/17 13:24 100 MLS/HR Vital Signs/I&O Vital Sign - Last 12Hours 10/30/17 10/30/17 11:24 11:27 Temp 101.0 Pulse 99 Resp 18 B/P (MAP) 112/66 (81) Pulse Ox 96 94 O2 Delivery Room Air Room Air Capillary Refill : Departure Communication (Admissions) Progress Notes 1125- I did call [facility] and they state that he has never filled Complera there. I relayed this to the patient and advised him he should be as because this can affect his long-term well-being. He states "fine, Im not taking it". 1238-I discussed the case with Dr. Garcia on-call for hospitalist. Given that the patient is not requiring supplemental oxygen, no hypotension she agrees he can be sent home for a trial of outpatient therapy with Zithromax and Omnicef after Rocephin and Zithromax here. Obviously, return for worsening symptoms Impression Impression: Primary Impression: Noncompliance with medications Additional Impressions: Influenza RLL pneumonia Disposition: 01 HOME, SELF-CARE Condition: Stable Departure-Patient Inst. Decision time for Depature: 12:39 Referrals: NO,LOCAL PHYSICIAN (PCP/Family) Primary Care Physician Patient Instructions: Pneumonia, Adult (DC) Add. Discharge Instructions: 1. Tylenol and Motrin for fevers 2. Take the 2 antibiotics as directed. I have sent them to [facility] and they're waiting for you. Your next dose will be tomorrow morning. He will not get better without these medications so do not skip these medications. 3. Follow-up with your doctor within 48 hours 4. Return to the emergency room for any worsening shortness of breath or any other worsening or concerning symptoms. Scripts Cefdinir (Cefdinir) 300 Mg Capsule 300 MG PO BID, #14 CAP Prov: AISSATOU REDDY APRN 10/30/17 Azithromycin (Azithromycin) 250 Mg Tablet 250 MG PO DAILY, #4 TAB Prov: AISSATOU REDDY APRN 10/30/17 AISSATOU REDDY APRN Oct 30, 2017 11:23
[2017-10-30] MEDS ORDERED: NS IV 1000 ML 1,000 ML IV SCH (11:30)
[2017-10-30] MEDS ORDERED: RT-ALBUTEROL/IPRATROPIUM 3 ML (DUONEB) VIAL INH ONE (11:30)
[2017-10-30] MEDS ORDERED: ACETAMINOPHEN 500 MG TAB (TYLENOL) PO ONE (11:45)
--- NOTE | 2017-10-30 12:14 | Diagnostic Imaging Report ---
PATIENT HISTORY: Nausea, vomiting, flu-like symptoms. TECHNIQUE: Two views of the chest. COMPARISON: 01/06/2017 FINDINGS: Lung volumes are mildly large. There is a new airspace opacity in the right lower lobe. There is flattening of the diaphragms. The heart is normal in size. There is stable scarring of the left upper lobe. No acute osseous abnormality is seen. IMPRESSION: 1. Right lower lobe infiltrate, concerning for pneumonia in the appropriate clinical setting. 2. Stable scarring in the left upper lobe. Dictated by: Dictated on workstation # [id number]
[2017-10-30 12:17] LABS: BASOPHILS % (AUTO) 0 % (0-10); EOSINOPHILS % (AUTO) 0 % (0-10); HEMATOCRIT 38 % (40-54); HEMOGLOBIN 12.5 G/DL (13.3-17.7); LYMPHOCYTES # (AUTO) 1.6 X 10^3 (1.0-4.0); LYMPHOCYTES % (AUTO) 14 % (12-44); MEAN CORPUSCULAR HEMOGLOBIN 23 PG (25-34); MEAN CORPUSCULAR HGB CONC 33 G/DL (32-36); MEAN CORPUSCULAR VOLUME 70 FL (80-99); MEAN PLATELET VOLUME 12.2 FL (7.4-10.4); MONOCYTES # (AUTO) 0.7 X 10^3 (0.0-1.0); MONOCYTES % (AUTO) 6 % (0-12); NEUTROPHILS # (AUTO) 8.9 X 10^3 (1.8-7.8); NEUTROPHILS % (AUTO) 80 % (42-75); PLATELET COUNT 191 10^3/uL (130-400); RED BLOOD COUNT 5.35 10^6/uL (4.35-5.85); RED CELL DISTRIBUTION WIDTH 14.1 % (10.0-14.5); WHITE BLOOD COUNT 11.2 10^3/uL (4.3-11.0)
[2017-10-30 12:30] LABS: ALANINE AMINOTRANSFERASE 33 U/L (0-55); ALBUMIN 3.8 GM/DL (3.2-4.5); ALKALINE PHOSPHATASE 56 U/L (40-136); BILIRUBIN,TOTAL 1.6 MG/DL (0.1-1.0); BUN/CREATININE RATIO 19; CALCIUM 8.7 MG/DL (8.5-10.1); CARBON DIOXIDE 23 MMOL/L (21-32); CHLORIDE 96 MMOL/L (98-107); CREATININE SERUM 1.14 MG/DL (0.60-1.30); GFR ESTIMATED > 60; GLUCOSE 94 MG/DL (70-105); POTASSIUM 3.7 MMOL/L (3.6-5.0); SODIUM 130 MMOL/L (135-145); TOTAL PROTEIN 9.1 GM/DL (6.4-8.2)
[2017-10-30] MEDS ORDERED: cefTRIAXone INJECTION 1,000 MG in NS (IVPB) 50 ML IV ONE (12:30)
[2017-10-30] MEDS ORDERED: AZIT250T12 PO (12:40)
[2017-10-30] MEDS ORDERED: CEFD300C3 PO (12:40)
[2017-10-30] MEDS ORDERED: AZITHROMYCIN 250 MG TAB (ZITHROMAX) PO SCH (12:45)
[2017-10-30 13:56] VITALS: BP 12/73
== END 2017-10-30 14:04 | disposition home or self-care (01) ==
LOC: EDUNIT# 11:08 → ER 11:11
DX: J10.08 Influenza due to other identified influenza virus with other specified pneumonia (principal); J18.1 Lobar pneumonia, unspecified organism; B19.20 Unspecified viral hepatitis C without hepatic coma; F90.9 Attention-deficit hyperactivity disorder, unspecified type; F41.9 Anxiety disorder, unspecified; Z87.891 Personal history of nicotine dependence; Z91.14 Patient's other noncompliance with medication regimen; Z88.5 Allergy status to narcotic agent; Z21 Asymptomatic human immunodeficiency virus [HIV] infection status
CPT/HCPCS: 36415; 71046; 80053; 83605; 85025; 87040; 87804; 94640; 96361; 96365

== ENCOUNTER 2017-11-20 19:26 | Emergency (ER) | payer MEDICARE, MEDICAID ==
[~2017-11-20] VITALS: Ht 157.5 cm; Wt 45.4 kg
[~2017-11-20 19:26] MED LIST changes: +AZIT250T12 PO; +CEFD300C3 PO
--- OUTSIDE RECORDS SUMMARY | 2017-11-20 19:30 | XMS REPORT | Continuity of Care Document ---
Author Author [employer] Organization [facility] Address Unknown Phone Unavailable Care Team Providers Care Printing Sales Representative Name Role Phone [employer] Unavailable Unavailable Problems Medications Allergies, Adverse Reactions, Alerts Immunizations Results Vital Signs Encounters Location Location Details Encounter Type Encounter Number Reason For Visit Attending Provider ADM Date DC Date Status Source [facility] [id number] Emergency [id number] PHONG ENEDELIA 07/28/2012 07/28/2012 Active [facility] Procedures Plan of Care Social History Assessment and Plan Family History Advance Directives Functional Status
--- OUTSIDE RECORDS SUMMARY | 2017-11-20 19:30 | XMS REPORT | Clinical Summary ---
Author Author [facility] Address Unknown Phone Unavailable Care Team Providers Care Fisher Quahog Name Role Phone PP Unavailable Allergies Not [...]
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
--- NOTE | 2017-11-20 19:37 | ED General ---
General Stated Complaint: WEAKNESS Source of Information: Patient Exam Limitations: No Limitations History of Present Illness Date Seen by Provider: Nov 20, 2017 Time Seen by Provider: 19:34 Initial Comments To ER with a 2 to three-week history of nausea, generalized weakness, productive cough of greenish sputum, sore throat, rhinorrhea. He was seen here about 3-4 weeks ago for pneumonia and given antibiotics. He states that he did improve temporarily but the cough has returned. He denies fevers. Denies abdominal pains. He is HIV positive and noncompliant with treatment with Complera Timing/Duration: Intermittent Severity: Moderate Associated Systoms: Cough, No Fever/Chills, Nausea/Vomiting, Weakness Allergies and Home Medications Allergies Coded Allergies: codeine (Verified Allergy, Unknown, 01/18/16) hydrocodone (Verified Allergy, Unknown, 01/18/16) Home Medications Alprazolam 2 Mg Tablet, 2 MG PO HS, (Reported) Amphet Asp/Amphet/D-Amphet 30 Mg Tablet, 30 MG PO BID, (Reported) Azithromycin 250 Mg Tablet, 250 MG PO DAILY Prescribed by: AISSATOU REDDY on 10/30/17 124 Cefdinir 300 Mg Capsule, 300 MG PO BID Prescribed by: AISSATOU REDDY on 10/30/17 1240 Emtricitab/Rilpivirine/Tenofov 1 Each Tablet, 1 EACH PO DAILY, (Reported) Oxycodone HCl/Acetaminophen 1 Each Tablet, 1 EACH PO Q6H PRN for PAIN Prescribed by: MUSHTAQ MAYO on 07/27/17309 Oxycodone Hcl 60 Mg Tab.sr.12h, 60 MG PO BID, (Reported) Oxycodone Hcl/Acetaminophen 1 Each Tablet, 1 EACH PO Q6H Prescribed by: ERLINDA LANGFORD on 09/08/14 1557 Sulfamethoxazole/Trimethoprim 1 Each Tablet, 1 EACH PO BID Prescribed by: MUSHTAQ MAYO on 07/27/17309 Constitutional: see HPI, No chills, No fever, weakness EENTM: see HPI Respiratory: see HPI, cough Cardiovascular: no symptoms reported Genitourinary: no symptoms reported Musculoskeletal: no symptoms reported Skin: no symptoms reported Psychiatric/Neurological: No Symptoms Reported Past Vcjtjsg-Fqgesh-Ksbwjx Hx Patient Social History Type Used: Cigarettes Former Smoker, Quit: Apr 07, 2017 2nd Hand Smoke Exposure: Yes Recent Hopitalizations: No Immunizations Up To Date Tetanus Booster (TDap): Less than 5yrs Date of Pneumonia Vaccine: Sep 28, 2012 Date of Influenza Vaccine: Jun 28, 2013 Seasonal Allergies Seasonal Allergies: No Surgeries History of Surgeries: Yes (JAW FX/ORIF, ANAL TRAUMA SURGERY) Surgeries: Gallbladder Respiratory History of Respiratory Disorde: No Cardiovascular History of Cardiac Disorders: Yes Cardiac Disorders: Syncope Neurological History of Neurological Disord: Yes (SYNCOPE) Reproductive System HIV/AIDS: Yes Gastrointestinal History of Gastrointestinal Di: Yes (HEPATITIS C, HIV +) Gastrointestinal Disorders: Hepatitis Musculoskeletal History of Musculoskeletal Dis: Yes Musculoskeletal Disorders: Fibromyalgia, Chronic Back Pain Endocrine History of Endocrine Disorders: No Cancer History of Cancer: No Psychosocial History of Psychiatric Problem: Yes Behavioral Health Disorders: ADD/ADHD, Sleep Difficulties, Anxiety Integumentary History of Skin or Integumenta: No Blood Transfusions History of Blood Disorders: No Physical Exam Vital Signs Vital Signs - First Documented 11/20/17 19:26 Temp 96.0 Pulse 100 Resp 20 B/P (MAP) 118/89 (99) Pulse Ox 98 O2 Delivery Room Air Capillary Refill : General Appearance: No Apparent Distress, WD/WN, Chronically ill, Thin Eyes: Bilateral Eye Normal Inspection, Bilateral Eye PERRL, Bilateral Eye EOMI HEENT: PERRL/EOMI, TMs Normal Neck: Full Range of Motion, Normal Inspection Respiratory: No Accessory Muscle Use, No Respiratory Distress, Crackles (LLL) Cardiovascular: Regular Rate, Rhythm, Normal Peripheral Pulses Gastrointestinal: Normal Bowel Sounds, Non Tender, Soft Extremity: Normal Capillary Refill, Normal Inspection Neurologic/Psychiatric: Alert, Oriented x3 Skin: Normal Color, Warm/Dry Laceration Repair : Suture Size: 5-0 Progress/Results/Core Measures Suspected Sepsis SIRS Temperature: Pulse: Respiratory Rate: Laboratory Tests 11/20/17 19:35: White Blood Count 5.9 Blood Pressure / Mean: Laboratory Tests 11/20/17 19:35: Creatinine 0.96, Platelet Count 339, Total Bilirubin 0.8 Results/Orders Lab Results Laboratory Tests Test 11/20/17 19:35 11/20/17 21:07 Range/Units White Blood Count 5.9 4.3-11.0 10^3/uL Red Blood Count 4.65 4.35-5.85 10^6/uL Hemoglobin 10.8 L 13.3-17.7 G/DL Hematocrit 33 L 40-54 % Mean Corpuscular Volume 71 L 80-99 FL Mean Corpuscular Hemoglobin 23 L 25-34 PG Mean Corpuscular Hemoglobin Concent 33 32-36 G/DL Red Cell Distribution Width 14.2 10.0-14.5 % Platelet Count 339 130-400 10^3/uL Mean Platelet Volume 11.4 H 7.4-10.4 FL Neutrophils (%) (Auto) 53 42-75 % Lymphocytes (%) (Auto) 31 12-44 % Monocytes (%) (Auto) 15 H 0-12 % Eosinophils (%) (Auto) 0 0-10 % Basophils (%) (Auto) 1 0-10 % Neutrophils # (Auto) 3.1 1.8-7.8 X 10^3 Lymphocytes # (Auto) 1.8 1.0-4.0 X 10^3 Monocytes # (Auto) 0.9 0.0-1.0 X 10^3 Eosinophils # (Auto) 0.0 0.0-0.3 10^3/uL Basophils # (Auto) 0.0 0.0-0.1 10^3/uL Sodium Level 138 135-145 MMOL/L Potassium Level 3.3 L 3.6-5.0 MMOL/L Chloride Level 104 98-107 MMOL/L Carbon Dioxide Level 21 21-32 MMOL/L Anion Gap 13 5-14 MMOL/L Blood Urea Nitrogen 21 H 7-18 MG/DL Creatinine 0.96 0.60-1.30 MG/DL Estimat Glomerular Filtration Rate > 60 BUN/Creatinine Ratio 22 Glucose Level 92 70-105 MG/DL Calcium Level 8.6 8.5-10.1 MG/DL Total Bilirubin 0.8 0.1-1.0 MG/DL Aspartate Amino Transf (AST/SGOT) 37 H 5-34 U/L Alanine Aminotransferase (ALT/SGPT) 27 0-55 U/L Alkaline Phosphatase 77 40-136 U/L Total Protein 8.8 H 6.4-8.2 GM/DL Albumin 3.7 3.2-4.5 GM/DL Urine Color YELLOW Urine Clarity CLEAR Urine pH 6 5-9 Urine Specific Mon[place] 1.020 1.016-1.022 Urine Protein 2+ H NEGATIVE Urine Glucose (UA) NEGATIVE NEGATIVE Urine Ketones NEGATIVE NEGATIVE Urine Nitrite NEGATIVE NEGATIVE Urine Bilirubin NEGATIVE NEGATIVE Urine Urobilinogen 8 H NORMAL MG/DL Urine Leukocyte Esterase 1+ H NEGATIVE Urine RBC (Auto) NEGATIVE NEGATIVE Urine RBC NONE /HPF Urine WBC 2-5 /HPF Urine Squamous Epithelial Cells 0-2 /HPF Urine Crystals NONE /LPF Urine Bacteria NONE /HPF Urine Casts NONE /LPF Urine Mucus NEGATIVE /LPF Urine Culture Indicated NO Urine Opiates Screen NEGATIVE NEGATIVE Urine Oxycodone Screen NEGATIVE NEGATIVE Urine Methadone Screen NEGATIVE NEGATIVE Urine Propoxyphene Screen NEGATIVE NEGATIVE Urine Barbiturates Screen NEGATIVE NEGATIVE Ur Tricyclic Antidepressants Screen NEGATIVE NEGATIVE Urine Phencyclidine Screen NEGATIVE NEGATIVE Urine Amphetamines Screen POSITIVE H NEGATIVE Urine Methamphetamines Screen POSITIVE H NEGATIVE Urine Benzodiazepines Screen NEGATIVE NEGATIVE Urine Cocaine Screen NEGATIVE NEGATIVE Urine Cannabinoids Screen NEGATIVE NEGATIVE Micro Results Microbiology 11/20/17 Influenza Types A,B Antigen (NALINI) - Final, Complete My Orders Orders - AISSATOU REDDY APRN Cbc With Automated Diff (11/20/17 19:32) Comprehensive Metabolic Panel (11/20/17 19:32) Ua Culture If Indicated (11/20/17 19:32) Drug Screen Stat (Urine) (11/20/17 19:32) Chest Pa/Lat (2 View) (11/20/17 19:32) Influenza A And B Antigens (11/20/17 19:32) Ondansetron Injection (Zofran Injectio (11/20/17 19:45) Vital Signs/I&O Vital Sign - Last 12Hours 11/20/17 19:26 Temp 96.0 Pulse 100 Resp 20 B/P (MAP) 118/89 (99) Pulse Ox 98 O2 Delivery Room Air Capillary Refill : Departure Communication (Admissions) Progress Notes Patient is receiving the liter of IV fluids that EMS has started. He will complete this while in the emergency room. Impression Impression: Primary Impression: Viral syndrome Disposition: 01 HOME, SELF-CARE Condition: Stable Departure-Patient Inst. Decision time for Depature: 21:48 Referrals: NO,LOCAL PHYSICIAN (PCP/Family) Primary Care Physician Patient Instructions: Viral Syndrome (DC) Add. Discharge Instructions: 1. Return to ER for any concerns such as fevers 2. Follow-up with your doctor next week 3. AISSATOU REDDY APRN Nov 20, 2017 19:37
[2017-11-20] MEDS ORDERED: ONDANSETRON 4 MG/2 ML (SDV) Z0FRAN IVP ONE (19:45)
[2017-11-20 19:47] LABS: BASOPHILS % (AUTO) 1 % (0-10); EOSINOPHILS % (AUTO) 0 % (0-10); HEMATOCRIT 33 % (40-54); HEMOGLOBIN 10.8 G/DL (13.3-17.7); LYMPHOCYTES # (AUTO) 1.8 X 10^3 (1.0-4.0); LYMPHOCYTES % (AUTO) 31 % (12-44); MEAN CORPUSCULAR HEMOGLOBIN 23 PG (25-34); MEAN CORPUSCULAR HGB CONC 33 G/DL (32-36); MEAN CORPUSCULAR VOLUME 71 FL (80-99); MEAN PLATELET VOLUME 11.4 FL (7.4-10.4); MONOCYTES # (AUTO) 0.9 X 10^3 (0.0-1.0); MONOCYTES % (AUTO) 15 % (0-12); NEUTROPHILS # (AUTO) 3.1 X 10^3 (1.8-7.8); NEUTROPHILS % (AUTO) 53 % (42-75); PLATELET COUNT 339 10^3/uL (130-400); RED BLOOD COUNT 4.65 10^6/uL (4.35-5.85); RED CELL DISTRIBUTION WIDTH 14.2 % (10.0-14.5); WHITE BLOOD COUNT 5.9 10^3/uL (4.3-11.0)
[2017-11-20 20:32] LABS: ALANINE AMINOTRANSFERASE 27 U/L (0-55); ALBUMIN 3.7 GM/DL (3.2-4.5); ALKALINE PHOSPHATASE 77 U/L (40-136); BILIRUBIN,TOTAL 0.8 MG/DL (0.1-1.0); BUN/CREATININE RATIO 22; CALCIUM 8.6 MG/DL (8.5-10.1); CARBON DIOXIDE 21 MMOL/L (21-32); CHLORIDE 104 MMOL/L (98-107); CREATININE SERUM 0.96 MG/DL (0.60-1.30); GFR ESTIMATED > 60; GLUCOSE 92 MG/DL (70-105); POTASSIUM 3.3 MMOL/L (3.6-5.0); SODIUM 138 MMOL/L (135-145); TOTAL PROTEIN 8.8 GM/DL (6.4-8.2)
--- NOTE | 2017-11-20 20:48 | Diagnostic Imaging Report ---
EXAMINATION: CHEST (PA AND LATERAL) CLINICAL INDICATION: 52-year-old male, cough. Weakness. Sore throat for 3 weeks. COMPARISON: 10/30/2017. CT chest 01/19/2009. FINDINGS: Stable overall appearance of the cardiomediastinal silhouette. There are areas of opacity in the left lung apex. There are predominantly linear oriented opacities radiating upwards from the left hilum which are unchanged since comparison exam. Areas of left apical consolidation are unchanged. There are streaky right parahilar opacities which are also unchanged. There are some areas of lucency in the peripheral aspect of the right upper lobe which are similar in appearance to the comparison exam. No interval focal airspace consolidation is identified. There is no identified pleural effusion. There is no identified pneumothorax. IMPRESSION: 1. No identified interval acute cardiopulmonary abnormality. 2. Linear opacities radiating upwards from the left ekaterina likely relating to bronchiectasis and scarring with unchanged left apical consolidation. 3. Additional likely chronic lung changes. Dictated by: Dictated on workstation # [id number]
[2017-11-20 21:19] LABS: BILIRUBIN,URINE NEGATIVE (NEGATIVE); CLARITY,URINE CLEAR; COLOR,URINE YELLOW; GLUCOSE, URINE (UA) NEGATIVE (NEGATIVE); KETONES,URINE NEGATIVE (NEGATIVE); LEUKOCYTE ESTERASE ,URINE 1+ (NEGATIVE); NITRITE,URINE NEGATIVE (NEGATIVE); PH,URINE 6 (5-9); PROTEIN,URINE 2+ (NEGATIVE); UROBILINOGEN,URINE 8 MG/DL (NORMAL)
[2017-11-20 21:28] LABS: SQUAMOUS EPITHELIAL CELL,UR 0-2 /HPF
[2017-11-20 21:45] LABS: AMPHETAMINE SCREEN, URINE POSITIVE (NEGATIVE); BARBITURATE SCREEN URINE NEGATIVE (NEGATIVE); BENZODIAZEPINES SCREEN URINE NEGATIVE (NEGATIVE); CANNABINOID SCREEN, URINE NEGATIVE (NEGATIVE); COCAINE SCREEN URINE NEGATIVE (NEGATIVE); METHADONE STAT NEGATIVE (NEGATIVE); METHAMPHETAMINE SCREEN URINE S POSITIVE (NEGATIVE); OPIATE SCREEN URINE NEGATIVE (NEGATIVE); OXYCODONE STAT NEGATIVE (NEGATIVE); PROPOXYPHENE STAT NEGATIVE (NEGATIVE); TRICYCLIC ANTIDEPRESSANTS SCRE NEGATIVE (NEGATIVE)
[2017-11-20 22:00] VITALS: BP 118/89
== END 2017-11-20 22:00 | disposition home or self-care (01) ==
LOC: EDUNIT# 19:26 → ER 19:27
DX: B34.9 Viral infection, unspecified (principal); F41.9 Anxiety disorder, unspecified; F90.9 Attention-deficit hyperactivity disorder, unspecified type; Z91.14 Patient's other noncompliance with medication regimen; Z21 Asymptomatic human immunodeficiency virus [HIV] infection status; Z87.891 Personal history of nicotine dependence; Z88.5 Allergy status to narcotic agent
CPT/HCPCS: 36415; 71046; 80053; 80306; 81000; 85025; 87804

== ENCOUNTER 2018-02-20 20:11 | Day surgery (SDC) | payer MEDICARE, MEDICAID ==
[~2018-02-20] VITALS: Ht 165.1 cm; Wt 56.7 kg
--- OUTSIDE RECORDS SUMMARY | 2018-02-20 20:17 | XMS REPORT | Clinical Summary ---
Author Author [facility] [place] Address Unknown Phone Unavailable Care Team Providers Care Facility Attendant Name Role Phone PP Unavailable Allergies Not on File Current Medications Not on file Active Problems Not on file Social History Tobacco Use Types Packs/Day Years Used Date Never Assessed Sex Assigned at Date Recorded Not on file Plan of Treatment Health Maintenance Due Date Last Done Comments Hepatitis C Screening 1965 DTaP,Tdap,and Td Vaccines 1984 (1 - Tdap) Colon Cancer Screening 2015 Zoster Recombinant 2015 Vaccine (RZV,Shingrix) (1 of 2 - [facility] 2 Dose Standard) Influenza Vaccine (Season 05/29/2018 Ended) Results Not on filefrom Last 3 Months
--- NOTE | 2018-02-20 20:24 | ED GU-Female ---
General Stated Complaint: CONSTIPATION Source: patient Exam Limitations: no limitations History of Present Illness Date Seen by Provider: February 20, 2018 Time Seen by Provider: 20:23 Initial Comments To ER per private vehicle with reports of possible lotion bottle retained and rectum. He placed this intentionally 2 weeks ago in conjunction with a flashlight as well. He then got unexpectedly arrested and was able to pass one of these while in prison but cannot recall whether it was the flashlight or lotion bottle. He states that he's had liquid bowel movements since then and is passing gas but severe rectal pain. no vomiting no fevers. He is HIV positive and does not take his antiretrovirals. Timing/Duration: other Severity/Quality: cramping Location: unknown Radiation: none Activities at Onset: none Associated Symptoms: No nausea/vomiting Allergies and Home Medications Allergies Coded Allergies: codeine (Verified Allergy, Unknown, 01/18/16) hydrocodone (Verified Allergy, Unknown, 01/18/16) Home Medications Alprazolam 2 Mg Tablet, 2 MG PO HS, (Reported) Amphet Asp/Amphet/D-Amphet 30 Mg Tablet, 30 MG PO BID, (Reported) Azithromycin 250 Mg Tablet, 250 MG PO DAILY Prescribed by: AISSATOU REDDY on 10/30/17 1240 Cefdinir 300 Mg Capsule, 300 MG PO BID Prescribed by: AISSATOU REDDY on 10/30/17 1240 Emtricitab/Rilpivirine/Tenofov 1 Each Tablet, 1 EACH PO DAILY, (Reported) Oxycodone HCl/Acetaminophen 1 Each Tablet, 1 EACH PO Q6H PRN for PAIN Prescribed by: MUSHTAQ MAYO on 07/27/17309 Oxycodone Hcl 60 Mg Tab.sr.12h, 60 MG PO BID, (Reported) Oxycodone Hcl/Acetaminophen 1 Each Tablet, 1 EACH PO Q6H Prescribed by: ERLINDA LANGFORD on 09/08/14 7647 Sulfamethoxazole/Trimethoprim 1 Each Tablet, 1 EACH PO BID Prescribed by: MUSHTAQ MAYO on 07/27/17309 Patient Home Medication List Home Medication List Reviewed: Yes Review of Systems Constitutional: see HPI EENTM: see HPI Respiratory: no symptoms reported Cardiovascular: no symptoms reported Genitourinary: no symptoms reported Musculoskeletal: no symptoms reported Skin: no symptoms reported Psychiatric/Neurological: No Symptoms Reported Endocrine: No Symptoms Reported Past Rtjwarv-Qhuzgw-Wiempd Hx Patient Social History Drug of Choice: METHAMPHETAMINE AND MARIJUANA Type Used: Cigarettes Former Smoker, Quit: Apr 07, 2017 2nd Hand Smoke Exposure: Yes Recent Hopitalizations: No Immunizations Up To Date Tetanus Booster (TDap): Less than 5yrs Date of Pneumonia Vaccine: Sep 28, 2012 Date of Influenza Vaccine: Jun 28, 2013 Seasonal Allergies Seasonal Allergies: No Past Medical History Surgeries: Yes (JAW FX/ORIF, ANAL TRAUMA SURGERY) Gallbladder Respiratory: No Cardiac: Yes Syncope Neurological: Yes (SYNCOPE) HIV/AIDS: Yes Gastrointestinal: Yes (HEPATITIS C, HIV +) Hepatitis Musculoskeletal: Yes Fibromyalgia, Chronic Back Pain Endocrine: No Cancer: No Psychosocial: Yes ADD/ADHD, Sleep Difficulties, Anxiety Integumentary: No Blood Disorders: No Family Medical History Diabetes (mother) Physical Exam Vital Signs Vital Signs - First Documented 02/20/18 20:15 Temp 98.8 Pulse 90 Resp 20 B/P (MAP) 126/92 (103) Pulse Ox 98 O2 Delivery Room Air Capillary Refill : General Appearance: WD/WN, no apparent distress HEENT: PERRL/EOMI, normal ENT inspection Neck: non-tender, full range of motion Respiratory: no respiratory distress, no accessory muscle use Gastrointestinal: normal bowel sounds, non tender, soft Extremities: normal range of motion, non-tender Neurologic/Psychiatric: alert, normal mood/affect, oriented x 3 Skin: normal color, warm/dry Procedures/Interventions Suture Size: 5-0 Progress/Results/Core Measures Suspected Sepsis SIRS Temperature: Pulse: Respiratory Rate: Blood Pressure / Mean: Results/Orders My Orders Orders - AISSATOU REDDY APRN Ct Abdomen/Pelvis Wo (02/20/18 20:21) Vital Signs/I&O 02/20/18 20:15 Temp 98.8 Pulse 90 Resp 20 B/P (MAP) 126/92 (103) Pulse Ox 98 O2 Delivery Room Air Capillary Refill : Departure Communication (Admissions) 2049-Notified Dr Lujan of findings. He is operating currently. CT report shows no foreign body seen by radiologist but I believe we can see a space occupying object in the distal colon. 2131-Dr Lujan has been to ER to evaluate the patient and will take the patient to the operating room for colonoscopy and attempted removal, possible exploratory laparotomy. Impression Primary Impression: Rectal foreign body Disposition: ADMITTED INPATIENT Condition: Stable Admissions Decision to Admit Reason: Admit from ER (General) Decision to Admit/Date: February 20, 2018 Time/Decision to Admit Time: 21:23 Departure-Patient Inst. Referrals: NO,LOCAL PHYSICIAN (PCP/Family) Primary Care Physician AISSATOU REDDY APRN February 20, 2018 20:24
--- NOTE | 2018-02-20 20:45 | Diagnostic Imaging Report ---
PROCEDURE: CT abdomen and pelvis without contrast. TECHNIQUE: Multiple contiguous axial images were obtained through the abdomen and pelvis without the use of intravenous contrast. INDICATION: Abdominal pain. Foreign body in the rectum There is patchy airspace disease in the left lower lobe with a tree-in-bud type of infiltrate present. There is also some scarring at the left lung base with the spiculated area seen laterally which is stable compared to 2009 CT. Gallbladder is absent. The liver and bile ducts are normal. The spleen, pancreas and adrenals are normal although the pancreas is not well identified due to lack of abdominal fat and contrast. The kidneys, ureters and bladder are normal. There is air and fecal material seen throughout the colon consistent with constipation. There is no bowel wall edema. There is no free intraperitoneal air or fluid. No perforation is evident. No foreign body is seen. IMPRESSION: There is patchy infiltrate in left lower lobe. There is constipation. Dictated by: Dictated on workstation # [id number]
--- OUTSIDE RECORDS SUMMARY | 2018-02-20 21:22 | XMS REPORT | Clinical Summary ---
Author Author [facility] [place] Address Unknown Phone Unavailable Care Team Providers Care Production Cost Estimator Name Role Phone PP Unavailable Allergies Not [...] 2015 Vaccine (RZV,Shingrix) (1 of 2 - [facility] 2 Dose Standard) Influenza Vaccine (Season 05/29/2018 Ended) Results Not on filefrom Last 3 Months
--- NOTE | 2018-02-20 21:30 | Consultation ---
History of Present Illness History of Present Illness Patient Consulted On(mani/time) 02/20/18 21:23 Time Seen by Provider: 21:04 History of Present Illness Surgery asked to consult regarding foreign body stuck in colon. HPI per ED: To ER per private vehicle with reports of possible lotion bottle retained and rectum. He placed this intentionally 2 weeks ago in conjunction with a flashlight as well. He then got unexpectedly arrested and was able to pass one of these while in prison but cannot recall whether it was the flashlight or lotion bottle. He states that he's had liquid bowel movements since then and is passing gas but severe rectal pain. no vomiting no fevers. He is HIV positive and does not take his antiretrovirals. Timing/Duration: other Severity/Quality: cramping Location: unknown Radiation: none Activities at Onset: none He states it has been in there at least a week (the entire time he was in prison) . He thinks he may be having "gas rumblings" but no "real bowel movement". Pt denies nausea or vomiting. Rated pain as 2 out of 10. Allergies and Home Medications Allergies Coded Allergies: codeine (Verified Allergy, Unknown, 01/18/16) hydrocodone (Verified Allergy, Unknown, 01/18/16) Home Medications Alprazolam 2 Mg Tablet, 2 MG PO HS, (Reported) Amphet Asp/Amphet/D-Amphet 30 Mg Tablet, 30 MG PO BID, (Reported) Azithromycin 250 Mg Tablet, 250 MG PO DAILY Prescribed by: AISSATOU REDDY on 10/30/17 1240 Cefdinir 300 Mg Capsule, 300 MG PO BID Prescribed by: AISSATOU REDDY on 10/30/17 1240 Emtricitab/Rilpivirine/Tenofov 1 Each Tablet, 1 EACH PO DAILY, (Reported) Oxycodone HCl/Acetaminophen 1 Each Tablet, 1 EACH PO Q6H PRN for PAIN Prescribed by: MUSHTAQ MAYO on 07/27/17 0310 Oxycodone Hcl 60 Mg Tab.sr.12h, 60 MG PO BID, (Reported) Oxycodone Hcl/Acetaminophen 1 Each Tablet, 1 EACH PO Q6H Prescribed by: ERLINDA LANGFORD on 09/08/14 1997 Sulfamethoxazole/Trimethoprim 1 Each Tablet, 1 EACH PO BID Prescribed by: MUSHTAQ MAYO on 10/30/17 0310 Patient Home Medication List Home Medication List Reviewed: Yes Past Qsiqmiv-Mscpiw-Ssjqic Hx Patient Social History Alcohol Use: Rarely Uses Recreational Drug Use: Yes (REPORTS RECENTLY PLACED "LOTION BOTTLE IN RECTUM" WHILE BEING ARRESTED ) Drug of Choice: METHAMPHETAMINE AND MARIJUANA Smoking Status: Never a Smoker Former Smoker, Quit: Apr 07, 2017 Type Used: Cigarettes 2nd Hand Smoke Exposure: Yes Recent Foreign Travel: No Contact w/Someone Who Travel: No Recent Infectious Disease Expo: No Recent Hopitalizations: No Immunizations Up To Date Tetanus Booster (TDap): Less than 5yrs Date of Pneumonia Vaccine: Sep 28, 2012 Date of Influenza Vaccine: Jun 28, 2013 Seasonal Allergies Seasonal Allergies: No Surgeries History of Surgeries: Yes (FX JAW) Surgeries: Appendectomy, Gallbladder Respiratory History of Respiratory Disorde: Yes (TOBACCOISM HX) Respiratory Disorders: Pulmonary Fibrosis Cardiovascular History of Cardiac Disorders: Yes Cardiac Disorders: Syncope Neurological History of Neurological Disord: No Reproductive System HIV/AIDS: Yes Genitourinary History of Genitourinary Disor: No Gastrointestinal History of Gastrointestinal Di: Yes (HEP C) Gastrointestinal Disorders: Chronic Constipation, Hepatitis Musculoskeletal History of Musculoskeletal Dis: No Musculoskeletal Disorders: Fibromyalgia, Chronic Back Pain Endocrine History of Endocrine Disorders: No HEENT History of HEENT Disorders: No Cancer History of Cancer: No Psychosocial History of Psychiatric Problem: Yes Behavioral Health Disorders: ADD/ADHD, Anxiety, Depression Integumentary History of Skin or Integumenta: Yes (HX HERPES) Blood Transfusions History of Blood Disorders: No Family Medical History Significant Family History: Diabetes (mother) Review of Systems-General Constitutional: No chills, No diaphoresis; weakness EENTM: No blurred vision, No double vision, No mouth pain, No mouth swelling, No epistaxis, No throat pain, No throat swelling Respiratory: No cough, No dyspnea on exertion, No hemoptysis Cardiovascular: No chest pain, No edema, No palpitations Gastrointestinal: abdominal pain, constipation; No hematemesis, No melena Genitourinary: No dysuria, No frequency, No hematuria Musculoskeletal: No joint pain, No joint swelling, No muscle stiffness Skin: No change in color, No change in hair/nails Psychiatric/Neurological: Denies Anxiety, Denies Depressed; Emotional Problems ; Denies Headache, Denies Seizure Other Pt denies any abnormal bruising or bleeding, no heat or cold intolerance Physical Exam-General Problems Physical Exam Vital Signs Vital Signs - First Documented 02/20/18 20:15 Temp 98.8 Pulse 90 Resp 20 B/P (MAP) 126/92 (103) Pulse Ox 98 O2 Delivery Room Air Capillary Refill : Less Than 3 Seconds General Appearance: no apparent distress, thin Eyes: Bilateral Eye PERRL, Bilateral Eye EOMI HEENT: pharynx normal; No scleral icterus (R), No scleral icterus (L), No pale conjunctivae (R), No pale conjunctivae (L) Neck: non-tender, full range of motion, supple, normal inspection Respiratory: chest non-tender, lungs clear, normal breath sounds, no respiratory distress, no accessory muscle use Cardiovascular: regular rate, rhythm, no edema, no murmur Gastrointestinal: abnormal bowel sounds (decreased), distended, guarding, rebound, tenderness (diffuse); No hernia Rectal: deferred Back: no CVA tenderness, no vertebral tenderness Extremities: normal range of motion, non-tender, normal inspection, no pedal edema, no calf tenderness Neurologic/Psychiatric: director of construction II-XII nml as tested, no motor/sensory deficits, alert, normal mood/affect, oriented x 3 Skin: normal color, warm/dry Lymphatic: no adenopathy (neck, axilla or groin) Assessment/Plan Assessment/Plan Assessment/Plan Partial Large Bowel Obstruction secondary to lodged foreign body HIV HEP C Plan is to take pt to OR for Colonoscopy, possible Exploratory Laparotomy, possible colotomy, possible colectomy and possible colostomy. Pt is getting IVF , pain meds, anti-emetic and will get IV ABX prior to surgery. Discussed all risks and complications with pt not limited to pain, bleeding, infection, scar and damage to bowel. If nothing is done he runs the risk of bowel necrosis, perforation and . All questions answered to pt's satisfaction. PETE VALADEZ DO February 20, 2018 21:30
[2018-02-20] MEDS ORDERED: SEVOFLURANE (ULTANE) 15 ML INHAL SOLN ONE (21:33)
[2018-02-20] MEDS ORDERED: DEXAMETHASONE 10 MG/ML (DECADRON) 1 ML VIAL ONE (21:33)
[2018-02-20] MEDS ORDERED: fentaNYL INJECTION 100 MCG/2 ML AMP ONE (21:33)
[2018-02-20] MEDS ORDERED: ONDANSETRON 4 MG/2 ML (SDV) Z0FRAN ONE ×2 (21:33→22:59)
[2018-02-20] MEDS ORDERED: LIDOCAINE PF 2% 5 ML (XYLOCAINE) VIAL ONE (21:33)
[2018-02-20] MEDS ORDERED: MIDAZOLAM 2 MG/2 ML (VERSED) VIAL ONE (21:33)
[2018-02-20] MEDS ORDERED: proPOfol 200 MG/20 ML (DIPRIVAN) VIAL IV ONE (21:33)
[2018-02-20] MEDS ORDERED: LIDOCAINE/EPI 1%-1:200,000 (XYLOCAINE) 10 ML VIAL ONE (21:34)
[2018-02-20 21:46] LABS: BASOPHILS # (AUTO) 0.1 10^3/uL (0.0-0.1); BASOPHILS % (AUTO) 1 % (0-10); EOSINOPHILS # (AUTO) 0.1 10^3/uL (0.0-0.3); EOSINOPHILS % (AUTO) 1 % (0-10); HEMATOCRIT 37 % (40-54); HEMOGLOBIN 12.1 G/DL (13.3-17.7); LYMPHOCYTES # (AUTO) 2.4 X 10^3 (1.0-4.0); LYMPHOCYTES % (AUTO) 28 % (12-44); MEAN CORPUSCULAR HEMOGLOBIN 23 PG (25-34); MEAN CORPUSCULAR HGB CONC 33 G/DL (32-36); MEAN CORPUSCULAR VOLUME 70 FL (80-99); MEAN PLATELET VOLUME 12.2 FL (7.4-10.4); MONOCYTES # (AUTO) 0.9 X 10^3 (0.0-1.0); MONOCYTES % (AUTO) 11 % (0-12); NEUTROPHILS % (AUTO) 59 % (42-75); PLATELET COUNT 286 10^3/uL (130-400); RED BLOOD COUNT 5.25 10^6/uL (4.35-5.85); RED CELL DISTRIBUTION WIDTH 14.9 % (10.0-14.5); WHITE BLOOD COUNT 8.5 10^3/uL (4.3-11.0)
[2018-02-20 22:02] LABS: BUN/CREATININE RATIO 27; CALCIUM 8.9 MG/DL (8.5-10.1); CARBON DIOXIDE 24 MMOL/L (21-32); CHLORIDE 103 MMOL/L (98-107); CREATININE SERUM 1.28 MG/DL (0.60-1.30); GFR ESTIMATED > 60; GLUCOSE 98 MG/DL (70-105); POTASSIUM 4.1 MMOL/L (3.6-5.0); SODIUM 137 MMOL/L (135-145)
[2018-02-20] MEDS: LACTATED RINGERS 1,000 ML IV PRN ×2 (22:05→22:40)
[2018-02-20] MEDS ORDERED: ceFAZolin 1,000 MG (ANCEF) VIAL ONE (22:06)
[2018-02-20] MEDS ORDERED: NEOSTIGMINE 1 MG/ML 5 ML SYRINGE ONE (22:45)
[2018-02-20] MEDS ORDERED: GLYCOPYRROLATE 0.2 MG/ML (ROBINUL) 2 ML VIAL ONE (22:45)
[2018-02-20] MEDS ORDERED: ROCURONIUM 10 MG/ML 5 ML SYRINGE IV ONE (22:49)
[2018-02-20] MEDS ORDERED: PHENYLEPHRINE 100 MCG/ML 10 ML (ANESTHESIA) SYR ONE (22:50)
[2018-02-20] MEDS ORDERED: morphine INJ 10 MG/ML 1ML (SYR OR VIAL) ONE (22:59)
--- NOTE | 2018-02-20 23:03 | Progress Note-Post Operative ---
Post-Operative Progess Note Surgeon (s)/Scrum Coach (s) Surgeon PETE VALADEZ DO Scrum Coach: none Pre-Operative Diagnosis Partial Large Bowel Obstruction secondary to Foreign body, HIV, HEP C Post-Operative Diagnosis Same Procedure & Operative Findings Date of Procedure 02/20/18 Procedure Performed/Findings Colonoscopy Removal of foreign body through anal exploration Anesthesia Type GET Estimated Blood Loss Estimated blood loss (mL): scant Specimens/Packing Specimens Removed Foreign object - appears to be travel sized lotion bottle PETE VALADEZ DO February 20, 2018 23:03
[2018-02-20] MEDS ORDERED: morphine INJ 10 MG/ML 1ML (SYR OR VIAL) IVP PRN ×2 (23:15)
[2018-02-20] MEDS ORDERED: ONDANSETRON 4 MG/2 ML (SDV) Z0FRAN IVP PRN ×2 (23:15)
--- OUTSIDE RECORDS SUMMARY | 2018-02-21 00:20 | XMS REPORT | Clinical Summary ---
Author Author [facility] Address Unknown Phone Unavailable Care Team Providers Care Laboratory Equipment Installer Name Role Phone PP Unavailable Allergies Not [...] 2015 Vaccine (RZV,Shingrix) (1 of 2 - [facility] 2 Dose Standard) Influenza Vaccine (Season 05/29/2018 Ended) Results Not on filefrom Last 3 Months
[2018-02-21] MEDS: LACTATED RINGERS 1,000 ML IV SCH ×2 (00:45→05:23)
--- NOTE | 2018-02-21 00:57 | OPERATIVE REPORT ---
DATE OF SERVICE: PREOPERATIVE DIAGNOSES: 1. Partial large-bowel obstruction secondary to foreign object stuck in the colon, looks like descending colon. 2. Human immunodeficiency virus positive. 3. Hepatitis C positive. POSTOPERATIVE DIAGNOSES: 1. Partial large-bowel obstruction secondary to foreign object stuck in the colon, looks like descending colon. 2. Human immunodeficiency virus positive. 3. Hepatitis C positive. PROCEDURE: 1. Colonoscopy. 2. Removal of foreign object from colon with anal exploration and colonoscopy assistance. SURGEON: Denis Lujan DO. BASKET HAND BRAIDER: None. ANESTHESIA: General endotracheal tube. SPECIMEN: Foreign body. BLOOD LOSS: Scant. FLUIDS: Per anesthesia. POSTOPERATIVE CONDITION: Stable. INDICATION FOR PROCEDURE: The patient is a 52-year-old male who has not been having bowel movements, has decreased gas and has what looks like constipation, on the CT noted to have foreign bodies, looked like it might be a partial large bowel obstruction, need for removal of foreign object. FINDINGS: The patient had a foreign object looked like a small travel size lotion bottle stuck in the descending colon. PROCEDURE NOTE: After informed consent was obtained, the patient was brought to the operating room, placed on the table in the lithotomy position. He was consented for possible colonoscopy, possible exploratory laparotomy, possible colotomy, likely able to do this all through transanally. Could feel the foreign object, but then it moved further up, used a colonoscopy to visualize it and take a picture, then had the nurse pushing on the abdomen and pushed the bottle down and then able with a colonoscopy to advance an Allis forceps and then grasp the bottom of the bottle and then gently while watching with the colonoscope and pushing from above, carefully start pulling this out, able to completely pull this through the rectum. I had to pull around a couple of corners, but finally able to pull out of the rectum with very minimal bleeding at this point, then advanced the colonoscope up the colon past the splenic flexure into the transverse colon and I could see the hepatic flexure. There was some formed fecal material, but no other obvious pathology. Took pictures and then slowly withdrew the scope insufflating to look circumferentially at the duke looking at the transverse colon to the splenic flexure down the descending colon into the sigmoid colon. There were some mild abrasions in the sigmoid and descending colon as well as in the rectum, but did not appear to be any deep, no obvious holes, and then removed the scope. The patient tolerated the procedure and was transferred to recovery room in stable condition. Job ID: [id number] DocumentID: [id number] Dictated Date: 02/20/2018 23:10:17 Ski Guide Date: 02/21/2018 00:56:24 Dictated By: DO CARMEN GUERRERO
--- NOTE | 2018-02-21 03:16 | Anesthesia-General Post-Op ---
General Patient Condition Mental Status/LOC: Same as Preop Cardiovascular: Satisfactory Nausea/Vomiting: Absent Respiratory: Satisfactory Pain: Controlled Complications: Absent Post Op Complications Complications None Follow Up Care/Instructions Patient Instructions None needed. Anesthesia/Patient Condition Patient Condition Patient is doing well, no complaints, stable vital signs, no apparent adverse anesthesia problems. No complications reported per nursing. JORGE PATEL CRNA February 21, 2018 03:16
[2018-02-21 08:00] VITALS: BP 122/64
--- NOTE | 2018-02-21 10:31 | Diagnostic Imaging Report ---
INDICATION: Infiltrate, followup. TECHNIQUE: Single view chest 7:44 AM. CORRELATION STUDY: 11/20/2017 FINDINGS: There is a suggestion of background of the rather pronounced fibrotic-type change throughout the lung hyatt. Asymmetric hyperlucency of the left lung apex. Minimal infiltrate suggested about the left lung base. Abnormal irregularity about the right hilus stable. Heart size mainstem unchanged. Asymmetric areas of fibrosis about the left lung apex some distortion about the left paramediastinal anatomy. IMPRESSION: 1. Severe fibrotic-type change about the lung parenchyma. Superimposed area of infiltrate left lung base appears to be present. Dictated by: Dictated on workstation # [id number]
[2018-02-21 12:00] VITALS: BP 115/71
--- NOTE | 2018-02-21 12:39 | Discharge Inst-Surgical ---
Discharge Inst-Surgical Depart Medication/Instructions New, Converted or Re-Newed RX: Other (no prescriptions given) Patient Instructions Follow up Appt: Make appointment for 1 week with your primary care physician. Instructions: No Restrictions Symptoms to Report: Appetite Changes, Extremity Discoloration, Numbness/Tingling, Swelling Increased , Bleeding Excessive, Eyesight Changes, Pain Increased, Urine Color Change, Constipation(Persistent), Fever over 101 degree F, Pain/Pressure in chest, Urinating Difficulty, Cough Up/Vomit Blood, Heart Beat Irreg/Pounding, Pain/ Pressure in jaw, Cramps in feet or legs, Lightheadedness, Pain/Pressure in shoulder, Diarrhea(Persistent), Memory Changes Suddenly, Questions/Concerns, Weight gain consecutive days, Dizziness/Fainting, Nausea/Vomiting, Shortness of Breath, Weight gain over 2 pounds If questions or concerns contact your physician Or seek help at emergency department. Activity Activity as Tolerated: Yes Diet Discharge Diet: No Restrictions If Any Problems/Questions/Issu: Contact Your Physician, Go to Emergency Room Skin/Wound Care Infection Signs and Symptoms: Increased Drainage, Increased Swelling, Temperature Above 101 F Bathing Instructions: Milli Kelly ERIC B DO February 21, 2018 12:39
--- NOTE | 2018-02-21 12:41 | Progress Note-Standard ---
Standard Progress Note Progress Notes/Assess & Plan Time Seen by Provider: 12:31 Progress/Assessment & Plan Pt seen and examined, no complaints. Will D/C home Final Diagnosis Foreign object lodged in Descending/Sigmoid colon PETE VALADEZ DO February 21, 2018 12:41
[2018-02-21 14:00] VITALS: BP 115/71
== END 2018-02-21 14:15 | disposition home or self-care (01) ==
LOC: EDUNIT# 20:11 → ER 20:12 → 4TH 21:18 → SDC 21:18 → 4TH 23:59 → UNDOADMOB 23:59 → SDC 02-21 14:15 → UNDODISOB 02-21 14:15 → 4TH 02-21 17:16
PROVIDERS: ATTEND Surgery
DX: T18.4XXA Foreign body in colon, initial encounter (principal); K56.690 Other partial intestinal obstruction; Z21 Asymptomatic human immunodeficiency virus [HIV] infection status; B19.20 Unspecified viral hepatitis C without hepatic coma; Z79.899 Other long term (current) drug therapy
CPT/HCPCS: 36415; 71045; 74176; 80048; 85025; 94664

== ENCOUNTER 2018-07-08 13:24 | Emergency (ER) | payer MEDICARE, MEDICAID ==
[~2018-07-08] VITALS: Ht 170.2 cm; Wt 61.2 kg
--- OUTSIDE RECORDS SUMMARY | 2018-07-08 13:33 | XMS REPORT | Clinical Summary ---
Author Author [facility] Organization [facility] Address Unknown Phone Unavailable Care Team Providers Care Sales And Service Technician Name Role Phone PCP Unavailable Allergies Not on File Current Medications Not on file Active Problems Not on file Social History Tobacco Use Types Packs/Day Years Used Date Never Assessed Sex Assigned at Date Recorded Not on file Last Filed Vital Signs Not on file Plan of Treatment Not on file Results Not on filefrom Last 3 Months
--- OUTSIDE RECORDS SUMMARY | 2018-07-08 13:33 | XMS REPORT | Clinical Summary ---
Author Author [facility] Address Unknown Phone Unavailable Care Team Providers Care Pharmacy Tech Name Role Phone PP Unavailable Allergies Not [...] 2015 Vaccine (RZV,Shingrix) (1 of 2 - [facility] 2 Dose Standard) Influenza Vaccine (#1) 2018 Results Not on filefrom Last 3 Months
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
--- OUTSIDE RECORDS SUMMARY | 2018-07-08 13:36 | XMS REPORT ---
Author Author ChuckNiki Organization [facility] Address [address] [place], [place] [id number] Care Team Providers Care Hand Nailer Name Role Phone Niki Woods Unavailable PROBLEMS Type Condition ICD9-CM Code [id number] Code Onset Dates Condition Status SNOMED Code Problem Opioid abuse, uncomplicated F11.10 Active 1606439 Problem Asymptomatic human immunodeficiency virus [HIV] infection status Z21 Active 78860484 Problem Insomnia, unspecified G47.00 Active 799739170 Problem Transient disorder of initiating or maintaining sleep 307.41 Active 230538798 Problem Other chronic allergic conjunctivitis 372.14 Active 74119815 Problem Other chronic pain G89.29 Active 10710373 Problem Abnormal weight loss R63.4 Active 598447097 Problem Other inflammatory disorder of male genital organs 608.4 Active 452042181 Problem Generalized anxiety disorder F41.1 Active 01831962 Problem Chronic active hepatitis C K73.2 Active 832751802 Problem Polyneuropathy in diseases classified elsewhere G63 Active 66795130 Problem Attention-deficit hyperactivity disorder, unspecified type F90.9 Active 001560504 Problem Chronic depression F32.9 Active 286636050 Problem Nicotine dependence, cigarettes, uncomplicated F17.210 Active 846479752 Problem Personal history of tuberculosis Z86.11 Active 295174590 Problem Other stimulant abuse, uncomplicated F15.10 Active 569472086 ALLERGIES No Information ENCOUNTERS Encounter Location Date Diagnosis [address] [address] Mar, [address] [address] Oct, Leg cramps 729.[address] [address] Oct, [address] [address] Jun, [facility] [address] [place] [address] Jun, [facility] [address] [place] [address] Jun, [facility] [address] [place] [address] May, [facility] [address] [place] [address] May, [facility] [address] [place] [phone] [id number] May, 2014 Asymptomatic human immunodeficiency virus (HIV) infection status V08 ; Chronic hepatitis C without mention of hepatic coma 070.54 ; Depressive disorder, not elsewhere classified 311 ; Chronic pain 338.29 ; Attention deficit disorder of childhood without mention of hyperactivity 314.00 and Generalized anxiety disorder 300.02 [facility] [place] [address] [place], [place] [id number] May, Asymptomatic human immunodeficiency virus (HIV) infection status V08 ; Chronic hepatitis C without mention of hepatic coma 070.54 ; Nondependent opioid abuse, continuous 305.51 and Flu vaccine need V04.[address] [facility] [address] [place] [address] May, [facility] [address] [facility] [address] [place] [phone] Apr, [facility] [address] [facility] [address] [place] [phone] Apr, [facility] [address] [facility] [address] [place] [phone] Apr, [facility] [address] [facility] [address] [place] [phone] Feb, [facility] [address] [place] [address] Dec, [facility] [address] [place] [address] Sep, [facility] [address] [place] [address] Mar, [facility] [address] [place] [address] Dec, [facility] [address] [place] [address] Nov, [facility] [address] [place] [address] Sep, [facility] [address] [place] [address] Aug, [facility] [address] [place] [address] Nov, [facility] [address] [place] [address] Oct, [facility] [address] [place] [address] Sep, [facility] [address] [place] [address] Sep, [facility] [address] [facility] [address] [place] [phone] Jul, [facility] [address] [facility] [address] [place], [place] [phone] Jun, IMMUNIZATIONS No Known Immunizations SOCIAL HISTORY Never Assessed REASON FOR VISIT Consult Appointment ONLY PLAN OF CARE VITAL SIGNS MEDICATIONS Unknown Medications RESULTS No Results PROCEDURES No Known procedures INSTRUCTIONS MEDICATIONS ADMINISTERED No Known Medications
--- OUTSIDE RECORDS SUMMARY | 2018-07-08 13:38 | XMS REPORT | Continuity of Care Document ---
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 11:35:00 08/10/2013 23:59:59 CLS Outpatient TYRESE DAVISON MD [id number] 09/01/2012 14:26:00 09/01/2012 23:59:59 CLS Outpatient RIOS KAPLAN APRN [id number] 06/22/2012 13:42:00 06/22/2012 23:59:59 CLS Outpatient RIOS KAPLAN APRN
--- NOTE | 2018-07-08 13:39 | ED General ---
General Stated Complaint: DIZZINESS;COUGH Source of Information: Patient Exam Limitations: No Limitations History of Present Illness Date Seen by Provider: Jul 08, 2018 Time Seen by Provider: 13:37 Initial Comments To ER with reports of dizziness and cough. He's had these symptoms for about 3 days. No fevers or chills the cough is nonproductive. The dizziness is only present when he is up moving around, it goes away when he sits down and is at rest. He does have a history of HIV and states that he has not taken his Complera in over 3 years because he was feeling well and as if he didn't need it. He takes no medications and he denies any street drug use at this time only has a rather extensive history of recreational drug use historically. Timing/Duration: 2-3 Days Severity: Moderate Associated Systoms: Cough Allergies and Home Medications Allergies Coded Allergies: codeine (Verified Allergy, Unknown, 01/18/16) hydrocodone (Verified Allergy, Unknown, 01/18/16) Home Medications Alprazolam 2 Mg Tablet, 2 MG PO HS, (Reported) Amphet Asp/Amphet/D-Amphet 30 Mg Tablet, 30 MG PO BID, (Reported) Azithromycin 250 Mg Tablet, 250 MG PO DAILY Prescribed by: AISSATOU REDDY on 10/30/17 1240 Cefdinir 300 Mg Capsule, 300 MG PO BID Prescribed by: AISSATOU REDDY on 10/30/17 1240 Emtricitab/Rilpivirine/Tenofov 1 Each Tablet, 1 EACH PO DAILY, (Reported) Oxycodone HCl/Acetaminophen 1 Each Tablet, 1 EACH PO Q6H PRN for PAIN Prescribed by: MUSHTAQ MAYO on 07/27/17309 Oxycodone Hcl 60 Mg Tab.sr.12h, 60 MG PO BID, (Reported) Oxycodone Hcl/Acetaminophen 1 Each Tablet, 1 EACH PO Q6H Prescribed by: ERLINDA LANGFORD on 09/08/14 6407 Sulfamethoxazole/Trimethoprim 1 Each Tablet, 1 EACH PO BID Prescribed by: MUSHTAQ MAYO on 07/27/17309 Patient Home Medication List Home Medication List Reviewed: Yes Review of Systems Review of Systems Constitutional: see HPI; No chills EENTM: see HPI Respiratory: see HPI, cough Cardiovascular: no symptoms reported Genitourinary: no symptoms reported Musculoskeletal: no symptoms reported Skin: no symptoms reported Psychiatric/Neurological: See HPI Hematologic/Lymphatic: No Symptoms Reported Immunological/Allergic: no symptoms reported Past Mxipnqx-Lltpzw-Hndxwi Hx Patient Social History Drug of Choice: METHAMPHETAMINE AND MARIJUANA Type Used: Cigarettes Former Smoker, Quit: Apr 07, 2017 2nd Hand Smoke Exposure: Yes Recent Hopitalizations: No Immunizations Up To Date Tetanus Booster (TDap): Less than 5yrs Date of Pneumonia Vaccine: Sep 28, 2012 Date of Influenza Vaccine: Jun 28, 2013 Seasonal Allergies Seasonal Allergies: No Past Medical History Surgeries: Yes (FX JAW) Appendectomy, Gallbladder Respiratory: Yes (TOBACCOISM HX) Pulmonary Fibrosis Cardiac: Yes Syncope Neurological: No HIV/AIDS: Yes Genitourinary: No Gastrointestinal: Yes (HEP C) Chronic Constipation, Hepatitis Musculoskeletal: No Fibromyalgia, Chronic Back Pain Endocrine: No HEENT: No Cancer: No Psychosocial: Yes ADD/ADHD, Anxiety, Depression Integumentary: Yes (HX HERPES) Blood Disorders: No Family Medical History Diabetes Physical Exam Vital Signs Vital Signs - First Documented 07/08/18 07/08/18 13:35 14:06 Temp 95.5 Pulse 87 Resp 18 B/P (MAP) 147/109 (122) Pulse Ox 99 O2 Delivery Room Air Capillary Refill : Height, Weight, BMI Height: 5'5.00" Weight: 125lbs. oz. 56.038035xl; 19.58 BMI Method:Stated General Appearance: No Apparent Distress, WD/WN, Thin Eyes: Bilateral Eye Normal Inspection, Bilateral Eye PERRL, Bilateral Eye EOMI HEENT: PERRL/EOMI, TMs Normal, Normal ENT Inspection Neck: Full Range of Motion, Normal Inspection Respiratory: No Accessory Muscle Use, No Respiratory Distress, Wheezing Cardiovascular: Regular Rate, Rhythm, Normal Peripheral Pulses Gastrointestinal: Normal Bowel Sounds, Non Tender, Soft Extremity: Normal Capillary Refill, Normal Range of Motion Neurologic/Psychiatric: Alert, Oriented x3, No Motor/Sensory Deficits Skin: Normal Color, Warm/Dry Procedures/Interventions Suture Size: 5-0 Progress/Results/Core Measures Suspected Sepsis SIRS Temperature: Pulse: Respiratory Rate: Laboratory Tests 07/08/18 14:00: White Blood Count 5.9 Blood Pressure / Mean: Laboratory Tests 07/08/18 14:00: Creatinine 0.87, Platelet Count 272, Total Bilirubin 0.5 Results/Orders Lab Results Laboratory Tests Test 07/08/18 14:00 07/08/18 15:00 Range/Units White Blood Count 5.9 4.3-11.0 10^3/uL Red Blood Count 5.31 4.35-5.85 10^6/uL Hemoglobin 12.3 L 13.3-17.7 G/DL Hematocrit 38 L 40-54 % Mean Corpuscular Volume 71 L 80-99 FL Mean Corpuscular Hemoglobin 23 L 25-34 PG Mean Corpuscular Hemoglobin Concent 33 32-36 G/DL Red Cell Distribution Width 14.6 H 10.0-14.5 % Platelet Count 272 130-400 10^3/uL Mean Platelet Volume 12.0 H 7.4-10.4 FL Neutrophils (%) (Auto) 48 42-75 % Lymphocytes (%) (Auto) 39 12-44 % Monocytes (%) (Auto) 11 0-12 % Eosinophils (%) (Auto) 1 0-10 % Basophils (%) (Auto) 1 0-10 % Neutrophils # (Auto) 2.8 1.8-7.8 X 10^3 Lymphocytes # (Auto) 2.3 1.0-4.0 X 10^3 Monocytes # (Auto) 0.7 0.0-1.0 X 10^3 Eosinophils # (Auto) 0.1 0.0-0.3 10^3/uL Basophils # (Auto) 0.1 0.0-0.1 10^3/uL Sodium Level 134 L 135-145 MMOL/L Potassium Level 3.9 3.6-5.0 MMOL/L Chloride Level 102 98-107 MMOL/L Carbon Dioxide Level 22 21-32 MMOL/L Anion Gap 10 5-14 MMOL/L Blood Urea Nitrogen 25 H 7-18 MG/DL Creatinine 0.87 0.60-1.30 MG/DL Estimat Glomerular Filtration Rate > 60 BUN/Creatinine Ratio 29 Glucose Level 101 70-105 MG/DL Calcium Level 9.2 8.5-10.1 MG/DL Corrected Calcium 9.3 8.5-10.1 MG/DL Total Bilirubin 0.5 0.1-1.0 MG/DL Aspartate Amino Transf (AST/SGOT) 43 H 5-34 U/L Alanine Aminotransferase (ALT/SGPT) 42 0-55 U/L Alkaline Phosphatase 66 40-136 U/L Total Protein 8.9 H 6.4-8.2 GM/DL Albumin 3.9 3.2-4.5 GM/DL My Orders Orders - AISSATOU REDDY APRN Cbc With Automated Diff (07/08/18 13:26) Comprehensive Metabolic Panel (07/08/18 13:26) T [place] Cd4 Cells (07/08/18 13:26) Chest Pa/Lat (2 View) (07/08/18 13:26) Ua Culture If Indicated (07/08/18 13:36) Drug Screen Stat (Urine) (07/08/18 13:36) Meclizine Tablet (Antivert Tablet) (07/08/18 13:45) Ns Iv 1000 Ml (Sodium Chloride 0.9%) (07/08/18 13:45) Ct Head Wo (07/08/18 13:36) Albuterol/Ipra Inhalation Soln (Duoneb I (07/08/18 13:45) Svn Small Volume Nebulizer (07/08/18 13:41) Medications Given in ED Current Medications Medications Dose Ordered Sig/Marcela Route Start Time Stop Time Status Last Admin Dose Admin Albuterol/ Ipratropium 3 ml ONCE ONCE INH 07/08/18 13:45 07/08/18 13:46 DC 07/08/18 14:06 3 ML Meclizine HCl 25 mg ONCE ONCE PO 07/08/18 13:45 07/08/18 13:46 DC 07/08/18 14:00 25 MG Vital Signs/I&O 07/08/18 07/08/18 13:35 14:06 Temp 95.5 Pulse 87 Resp 18 B/P (MAP) 147/109 (122) Pulse Ox 99 99 O2 Delivery Room Air Capillary Refill : Departure Impression Primary Impression: Dizziness Disposition: 01 HOME, SELF-CARE Condition: Stable Departure-Patient Inst. Decision time for Depature: 15:24 Referrals: NO,LOCAL PHYSICIAN (PCP/Family) Primary Care Physician Patient Instructions: Vertigo (a Type of Dizziness) (DC) Add. Discharge Instructions: 1. return to er for any concerns 2. Follow up with your doctor next week. It is VERY IMPORTANT that you restart your Complera. AISSATOU REDDY APRN Jul 08, 2018 13:39
[2018-07-08] MEDS ORDERED: MECLIZINE 25 MG (ANTIVERT) TAB PO ONE (13:45)
[2018-07-08] MEDS ORDERED: NS IV 1000 ML 1,000 ML IV SCH (13:45)
[2018-07-08] MEDS ORDERED: RT-ALBUTEROL/IPRATROPIUM 3 ML (DUONEB) VIAL INH ONE (13:45)
[2018-07-08 14:10] LABS: BASOPHILS # (AUTO) 0.1 10^3/uL (0.0-0.1); BASOPHILS % (AUTO) 1 % (0-10); EOSINOPHILS # (AUTO) 0.1 10^3/uL (0.0-0.3); EOSINOPHILS % (AUTO) 1 % (0-10); HEMATOCRIT 38 % (40-54); HEMOGLOBIN 12.3 G/DL (13.3-17.7); LYMPHOCYTES # (AUTO) 2.3 X 10^3 (1.0-4.0); LYMPHOCYTES % (AUTO) 39 % (12-44); MEAN CORPUSCULAR HEMOGLOBIN 23 PG (25-34); MEAN CORPUSCULAR HGB CONC 33 G/DL (32-36); MEAN CORPUSCULAR VOLUME 71 FL (80-99); MONOCYTES # (AUTO) 0.7 X 10^3 (0.0-1.0); MONOCYTES % (AUTO) 11 % (0-12); NEUTROPHILS # (AUTO) 2.8 X 10^3 (1.8-7.8); NEUTROPHILS % (AUTO) 48 % (42-75); PLATELET COUNT 272 10^3/uL (130-400); RED BLOOD COUNT 5.31 10^6/uL (4.35-5.85); RED CELL DISTRIBUTION WIDTH 14.6 % (10.0-14.5); WHITE BLOOD COUNT 5.9 10^3/uL (4.3-11.0)
[2018-07-08 14:30] LABS: ALANINE AMINOTRANSFERASE 42 U/L (0-55); ALBUMIN 3.9 GM/DL (3.2-4.5); ALKALINE PHOSPHATASE 66 U/L (40-136); BILIRUBIN,TOTAL 0.5 MG/DL (0.1-1.0); BUN/CREATININE RATIO 29; CALCIUM 9.2 MG/DL (8.5-10.1); CARBON DIOXIDE 22 MMOL/L (21-32); CHLORIDE 102 MMOL/L (98-107); CREATININE SERUM 0.87 MG/DL (0.60-1.30); GFR ESTIMATED > 60; GLUCOSE 101 MG/DL (70-105); POTASSIUM 3.9 MMOL/L (3.6-5.0); SODIUM 134 MMOL/L (135-145); TOTAL PROTEIN 8.9 GM/DL (6.4-8.2)
--- NOTE | 2018-07-08 14:37 | Diagnostic Imaging Report ---
PROCEDURE: CT head without contrast. TECHNIQUE: Multiple contiguous axial images were obtained through the brain without the use of intravenous contrast. INDICATION: Dizziness and cough for 2 days COMPARISON: 01/08/2016 FINDINGS: The ventricles and cortical sulci appear age-appropriate. There is no midline shift or mass effect. No CT evidence of acute territorial ischemia is seen. No acute intracranial hemorrhage is seen. The calvarium is intact. Visualized paranasal sinuses are unremarkable. IMPRESSION: 1. No acute intracranial hemorrhage or CT evidence of acute territorial ischemia. Dictated by: Dictated on workstation # [id number]
--- NOTE | 2018-07-08 15:04 | Diagnostic Imaging Report ---
Clinical indication: Patient with dizziness and cough for the past two days. Exam: Chest x-ray PA and lateral views. Comparisons: Chest x-ray dated 02/21/2018. Findings: Lungs/pleura: There is no interval lung infiltrate. Stable increased lung markings and architectural distortion of both lungs in bilateral perihilar regions. Again noted slight increased lucency of the left lung compared to the right lung. There is no pneumothorax. There is no pleural effusion. Mediastinum: Unremarkable. Pulmonary vasculature: Unremarkable. Heart: Unremarkable. Bones/extrathoracic soft tissue: There are degenerative spurs involving the spine. Impression: Stable chest x-ray exam with no radiographic evidence of acute cardiopulmonary process. Dictated by: Dictated on workstation # [id number]
[2018-07-08 15:16] LABS: BILIRUBIN,URINE NEGATIVE (NEGATIVE); CLARITY,URINE SLIGHTLY CLOUDY; COLOR,URINE YELLOW; GLUCOSE, URINE (UA) NEGATIVE (NEGATIVE); KETONES,URINE NEGATIVE (NEGATIVE); LEUKOCYTE ESTERASE ,URINE NEGATIVE (NEGATIVE); NITRITE,URINE NEGATIVE (NEGATIVE); PH,URINE 7 (5-9); PROTEIN,URINE NEGATIVE (NEGATIVE); UROBILINOGEN,URINE NORMAL (NORMAL)
[2018-07-08 15:32] LABS: AMPHETAMINE SCREEN, URINE POSITIVE (NEGATIVE); BARBITURATE SCREEN URINE NEGATIVE (NEGATIVE); BENZODIAZEPINES SCREEN URINE NEGATIVE (NEGATIVE); CANNABINOID SCREEN, URINE NEGATIVE (NEGATIVE); COCAINE SCREEN URINE NEGATIVE (NEGATIVE); METHADONE STAT NEGATIVE (NEGATIVE); METHAMPHETAMINE SCREEN URINE S POSITIVE (NEGATIVE); OPIATE SCREEN URINE NEGATIVE (NEGATIVE); OXYCODONE STAT NEGATIVE (NEGATIVE); PROPOXYPHENE STAT NEGATIVE (NEGATIVE); TRICYCLIC ANTIDEPRESSANTS SCRE NEGATIVE (NEGATIVE)
[2018-07-08 15:36] LABS: BACTERIA,URINE NEGATIVE /HPF; WBC,URINE RARE /HPF
[2018-07-08 15:43] VITALS: BP 128/88
== END 2018-07-08 15:43 | disposition home or self-care (01) ==
LOC: EDUNIT# 13:24 → ER 13:25
DX: R42 Dizziness and giddiness (principal); F15.10 Other stimulant abuse, uncomplicated; F12.10 Cannabis abuse, uncomplicated; B19.20 Unspecified viral hepatitis C without hepatic coma; F90.9 Attention-deficit hyperactivity disorder, unspecified type; F41.9 Anxiety disorder, unspecified; F32.9 Major depressive disorder, single episode, unspecified; Z87.891 Personal history of nicotine dependence; Z90.89 Acquired absence of other organs; Z87.09 Personal history of other diseases of the respiratory system; Z87.19 Personal history of other diseases of the digestive system; Z88.5 Allergy status to narcotic agent
CPT/HCPCS: 36415; 70450; 71046; 80053; 80306; 81000; 85025; 86361; 94640

== ENCOUNTER 2018-08-25 18:40 | Emergency (ER) | payer MEDICARE, MEDICAID ==
[~2018-08-25] VITALS: Ht 170.2 cm; Wt 48.5 kg
[2018-08-25] MEDS ORDERED: hydrOXYzine (VISTARIL) 25 MG CAP PO ONE (19:00)
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
[2018-08-25 19:05] VITALS: BP 116/85
== END 2018-08-25 19:05 | disposition home or self-care (01) ==
LOC: EDUNIT# 18:40 → ER 18:41
DX: F41.9 Anxiety disorder, unspecified (principal); F90.9 Attention-deficit hyperactivity disorder, unspecified type; F32.9 Major depressive disorder, single episode, unspecified; F15.10 Other stimulant abuse, uncomplicated; F12.10 Cannabis abuse, uncomplicated; B19.20 Unspecified viral hepatitis C without hepatic coma; Z87.891 Personal history of nicotine dependence; Z86.19 Personal history of other infectious and parasitic diseases; Z90.49 Acquired absence of other specified parts of digestive tract; Z87.19 Personal history of other diseases of the digestive system; Z87.09 Personal history of other diseases of the respiratory system; Z88.5 Allergy status to narcotic agent
CPT/HCPCS: 99283

== ENCOUNTER 2018-10-18 10:17 | Emergency (ER) | payer MEDICARE, MEDICAID ==
[~2018-10-18] VITALS: Ht 170.2 cm; Wt 51.3 kg
[2018-10-18 10:18] VITALS: BP_SYST 118; BP_SYST 124; BP_SYST 127; BP_DIAS 84; BP_DIAS 85; BP_DIAS 87
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
[2018-10-18] MEDS ORDERED: LACTATED RINGERS 1,000 ML IV SCH (11:00)
[2018-10-18] MEDS ORDERED: MECLIZINE 25 MG (ANTIVERT) TAB PO ONE (11:00)
[2018-10-18 11:03] LABS: BASOPHILS # (AUTO) 0.1 10^3/uL (0.0-0.1); BASOPHILS % (AUTO) 2 % (0-10); EOSINOPHILS # (AUTO) 0.1 10^3/uL (0.0-0.3); EOSINOPHILS % (AUTO) 2 % (0-10); HEMATOCRIT 37 % (40-54); HEMOGLOBIN 11.7 G/DL (13.3-17.7); LYMPHOCYTES # (AUTO) 1.4 X 10^3 (1.0-4.0); LYMPHOCYTES % (AUTO) 36 % (12-44); MEAN CORPUSCULAR HEMOGLOBIN 23 PG (25-34); MEAN CORPUSCULAR HGB CONC 32 G/DL (32-36); MEAN CORPUSCULAR VOLUME 72 FL (80-99); MONOCYTES # (AUTO) 0.4 X 10^3 (0.0-1.0); MONOCYTES % (AUTO) 10 % (0-12); NEUTROPHILS # (AUTO) 1.9 X 10^3 (1.8-7.8); NEUTROPHILS % (AUTO) 51 % (42-75); PLATELET COUNT 224 10^3/uL (130-400); RED BLOOD COUNT 5.13 10^6/uL (4.35-5.85); RED CELL DISTRIBUTION WIDTH 14.6 % (10.0-14.5); WHITE BLOOD COUNT 3.8 10^3/uL (4.3-11.0)
[2018-10-18 11:21] LABS: ALANINE AMINOTRANSFERASE 41 U/L (0-55); ALBUMIN 3.7 GM/DL (3.2-4.5); ALKALINE PHOSPHATASE 72 U/L (40-136); BILIRUBIN,TOTAL 0.5 MG/DL (0.1-1.0); BUN/CREATININE RATIO 23; CALCIUM 8.5 MG/DL (8.5-10.1); CARBON DIOXIDE 25 MMOL/L (21-32); CHLORIDE 104 MMOL/L (98-107); CREATININE SERUM 0.82 MG/DL (0.60-1.30); GFR ESTIMATED > 60; GLUCOSE 94 MG/DL (70-105); SODIUM 135 MMOL/L (135-145); TOTAL PROTEIN 8.4 GM/DL (6.4-8.2)
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
--- NOTE | 2018-10-18 11:37 | Diagnostic Imaging Report ---
PROCEDURE: CT abdomen and pelvis without contrast. TECHNIQUE: Multiple contiguous axial images were obtained through the abdomen and pelvis without the use of intravenous contrast. INDICATION: Right-sided abdominal pain. Correlation is made with prior CT from 02/20/2018. FINDINGS: Irregular density in the left lower lobe laterally is similar to prior CT. There appears to be some chronic bronchiectasis in the left lower lobe. Right lower lobe is clear. Evaluation of the solid organ viscera is limited without intravenous contrast. No liver abnormality is seen. Gallbladder is surgically absent. Pancreas and spleen are unremarkable. No adrenal mass is seen. Unopacified kidneys are unremarkable. No calculus or hydronephrosis is seen. Aorta is unremarkable. Moderate stool throughout the colon is noted. The bowel loops are normal caliber. No obstruction is seen. There is no free fluid identified. IMPRESSION: Limited study without intravenous contrast. No significant abnormality is identified. Dictated by: Dictated on workstation # [id number]
[2018-10-18] MEDS ORDERED: MECL-106 PO (12:14)
[2018-10-18 12:16] LABS: BILIRUBIN,URINE NEGATIVE (NEGATIVE); CLARITY,URINE CLEAR; COLOR,URINE YELLOW; GLUCOSE, URINE (UA) NEGATIVE (NEGATIVE); KETONES,URINE NEGATIVE (NEGATIVE); LEUKOCYTE ESTERASE ,URINE NEGATIVE (NEGATIVE); NITRITE,URINE NEGATIVE (NEGATIVE); PH,URINE 7 (5-9); PROTEIN,URINE NEGATIVE (NEGATIVE); UROBILINOGEN,URINE NORMAL (NORMAL)
[2018-10-18 12:25] LABS: BACTERIA,URINE NEGATIVE /HPF
[2018-10-18 12:33] LABS: AMPHETAMINE SCREEN, URINE POSITIVE (NEGATIVE); BARBITURATE SCREEN URINE NEGATIVE (NEGATIVE); BENZODIAZEPINES SCREEN URINE NEGATIVE (NEGATIVE); CANNABINOID SCREEN, URINE NEGATIVE (NEGATIVE); COCAINE SCREEN URINE NEGATIVE (NEGATIVE); METHADONE STAT NEGATIVE (NEGATIVE); METHAMPHETAMINE SCREEN URINE S POSITIVE (NEGATIVE); OPIATE SCREEN URINE NEGATIVE (NEGATIVE); OXYCODONE STAT NEGATIVE (NEGATIVE); PROPOXYPHENE STAT NEGATIVE (NEGATIVE); TRICYCLIC ANTIDEPRESSANTS SCRE NEGATIVE (NEGATIVE)
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
--- NOTE | 2018-10-18 12:58 | NUR ---
FOOD ORDERED FOR PT.
[2018-10-18 13:17] VITALS: BP 129/98
== END 2018-10-18 13:17 | disposition home or self-care (01) ==
LOC: EDUNIT# 10:17 → ER 10:17
DX: S06.0X9A Concussion with loss of consciousness of unspecified duration, initial encounter (principal); B19.20 Unspecified viral hepatitis C without hepatic coma; F98.8 Other specified behavioral and emotional disorders with onset usually occurring in childhood and adolescence; F90.9 Attention-deficit hyperactivity disorder, unspecified type; F41.9 Anxiety disorder, unspecified; F32.9 Major depressive disorder, single episode, unspecified; Z87.19 Personal history of other diseases of the digestive system; Z86.19 Personal history of other infectious and parasitic diseases; Z21 Asymptomatic human immunodeficiency virus [HIV] infection status; Z88.5 Allergy status to narcotic agent; Z87.891 Personal history of nicotine dependence; Z90.49 Acquired absence of other specified parts of digestive tract; Z98.890 Other specified postprocedural states; Z87.09 Personal history of other diseases of the respiratory system; Z91.14 Patient's other noncompliance with medication regimen; X58.XXXA Exposure to other specified factors, initial encounter
CPT/HCPCS: 36415; 70450; 74176; 80053; 80306; 81000; 85025

== ENCOUNTER 2018-10-31 12:08 | Day surgery (SDC) | payer MEDICARE, MEDICAID ==
[~2018-10-31] VITALS: Ht 170.2 cm; Wt 56.7 kg
[~2018-10-31 12:08] MED LIST changes: +MECL-106 PO
--- NOTE | 2018-10-31 12:33 | NUR ---
PT TO ROOM AT THIS TIME.
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
--- NOTE | 2018-10-31 13:15 | NUR ---
DR VALADEZ IN W/ PT AT THIS TIME
--- NOTE | 2018-10-31 13:33 | Diagnostic Imaging Report ---
INDICATION: Unknown foreign object in the rectum since last night. TECHNIQUE: AP pelvis, 1:08 p.m. CORRELATION STUDY: None. FINDINGS: Approximately 10.7 cm in length x 3.9 cm transversely oriented elongated somewhat tubular shaped density is noted over the midline of the pelvis consistent with a foreign object at the level of the rectum. Etiology is somewhat indeterminate. The visualized margins appear to be fairly smooth. There is afeq-fd-smdlwylp severity fecal retention. Osseous structures are unremarkable. IMPRESSION: Elongated, somewhat tubular shaped structure at the level of the rectum. Findings are nonspecific as to etiology. Dictated by: Dictated on workstation # [id number]
--- NOTE | 2018-10-31 13:40 | NUR ---
THIS RN WAS LEAVING ANOTHER ROOM WHEN PT STUCK HIS HEAD OUT THE DOOR TO ASK FOR "GREASE OR LUBE" HE STATED "I'VE ALMOST GOT IT OUT." [place] PROVIDED TO PT
--- NOTE | 2018-10-31 13:53 | NUR ---
OP PERMIT SIGNED BY PT. RISKS ET BENEFITS DISCUSSED W/ PT. PT DID VOICE TO THIS RN HE IS HIV POSITIVE.
--- NOTE | 2018-10-31 14:07 | NUR ---
CLOTHING ET JEWELRY REMOVED ET PLACED IN A BELONGINGS BAG. RINGS TO BOTH HANDS TAPED PT REPORTS HE CANNOT REMOVE THEM. PT REPORTS HAS NOT EATEN ANYTHING ALL DAY. DOES REPORT DRINKING PRIOR TO 0300 THIS AM.
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
--- OUTSIDE RECORDS SUMMARY | 2018-10-31 14:15 | XMS REPORT | Clinical Summary ---
Author Author [facility] Organization [facility] Address Unknown Phone Unavailable Care Team Providers Care Operations Management Professionals Name Role Phone PCP Unavailable Allergies Not [...]
--- OUTSIDE RECORDS SUMMARY | 2018-10-31 14:15 | XMS REPORT | Clinical Summary ---
Author Author [facility] Address Unknown Phone Unavailable Care Team Providers Care Gatehouse Attendant Name Role Phone PP Unavailable Allergies Not on File Medications Not on file Active Problems Not on file Social History Date Tobacco Use Types Packs/Day Years Used Never Assessed Sex Assigned at Date Recorded Not on file Industry Job Start Date Occupation Not on file Not on file Not on file Travel End Travel History Travel Start No recent travel history available. Plan of Treatment Health Maintenance Due Date Last Done Comments Hepatitis C Screening 1965 DTaP,Tdap,and Td Vaccines 1984 (1 - Tdap) Colon Cancer Screening 2015 Zoster Recombinant 2015 Vaccine (RZV,Shingrix) (1 of 2 - [facility] 2 Dose Standard) Influenza Vaccine (#1) 2018 Results Not on filefrom Last 3 Months
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
--- OUTSIDE RECORDS SUMMARY | 2018-10-31 14:20 | XMS REPORT | Continuity of Care Document ---
Author Author [facility] Address Unknown Phone Unavailable Allergies Active Description Code Type Severity Reaction Onset Reported/Identified Relationship to Patient Clinical Status Yes Codeine 1550 Drug Allergy N/A N/A Yes Levaquin 27713 Drug Allergy N/ A N/A Yes No known allergies [id number] Drug Allergy N/A N/A Confirmed but inactive Yes No known drug allergies [id number] Drug Allergy N/A N/A Confirmed but inactive Yes NO KNOWN DRUG ALLERGIES UNKNOWN NO KNOWN DRUG ALLERG Yes codeine Drug Allergy N/A N/A 09/01/2014 Yes codeine [id number] Drug Allergy Unknown N/A 01/18/2016 Yes hydrocodone [id number] Drug Allergy Unknown N/A 01/18/2016 Medications There is no data. Problems Date Dx Coded Attending Type Code Diagnosis Diagnosed By 10/20/2008 RIOS KAPLAN APRN 042 HIV INFECTION 10/20/2008 RIOS KAPLAN APRN 042 HIV INFECTION 10/20/2008 TYRESE DAVISON MD 042 HIV INFECTION 10/20/2008 JOSLYN SMITH MD 042 HIV INFECTION 10/20/2008 MARILEE MERRITT DO 042 HIV INFECTION 10/20/2008 042 HIV INFECTION 10/20/2008 JOSLYN SMITH MD 042 HIV INFECTION 10/20/2008 JOSLYN SMITH MD 042 HIV INFECTION 10/20/2008 EDWAR WINSTON 042 HIV INFECTION 10/20/2008 GIANA ICT HELP DESK OFFICER, WOLF 042 HIV INFECTION 10/20/2008 GIANA RIVERS, [...] JOSLYN SMITH MD 300.00 ANXIETY UNSPEC 03/19/2012 SARAH MD, JOSLYN N 314.00 ADHD INATTENTIVE 03/19/2012 SARAH SELF, JOSLYN N 724.5 BACK PAIN, GENERAL 03/19/2012 SARAH SELF, JOSLYN N 784.92 JAW PAIN 03/19/2012 SARAH SELF, JOSLYN N 300.00 ANXIETY UNSPEC 03/19/2012 SARAH SELF, JOSLYN N 314.00 ADHD INATTENTIVE 03/19/2012 SARAH SELF, JOSLYN N 724.5 BACK PAIN, GENERAL 03/19/2012 SARAH SELF, JOSLYN N 784.92 JAW PAIN 03/19/2012 FABIENNE LCMF, EDWAR W 300.00 ANXIETY UNSPEC 03/19/2012 FABIENNE LCMF, EDWAR W 314.00 ADHD INATTENTIVE 03/19/2012 FABIENNE LCMF, EDWAR W 724.5 BACK PAIN, GENERAL 03/19/2012 FABIENNE LCMF, EDWAR W 784.92 JAW PAIN 03/19/2012 GIANA ICT HELP DESK OFFICER, WOLF 300.00 ANXIETY UNSPEC 03/19/2012 GIANA ICT HELP DESK OFFICER, WOLF 314.00 ADHD INATTENTIVE 03/19/2012 GIANA ICT HELP DESK OFFICER, WOLF 724.5 BACK PAIN, GENERAL 03/19/2012 GIANA ICT HELP DESK OFFICER, WOLF 784.92 JAW PAIN 03/19/2012 GIANA ICT HELP DESK OFFICER, WOLF 300.00 ANXIETY UNSPEC 03/19/2012 GIANA ICT HELP DESK OFFICER, WOLF 314.00 ADHD INATTENTIVE 03/19/2012 GIANA ICT HELP DESK OFFICER, WOLF 724.5 BACK PAIN, GENERAL 03/19/2012 GIANA ICT HELP DESK OFFICER, WOLF 784.92 JAW PAIN 03/19/2012 TYRESE DAVISON MD 300.00 ANXIETY UNSPEC 03/19/2012 TYRESE DAVISON MD 314.00 ADHD INATTENTIVE 03/19/2012 TYRESE DAVISON MD 724.5 BACK PAIN, GENERAL 03/19/2012 TYRESE DAVISON MD 784.92 JAW PAIN 03/19/2012 GIANA ICT HELP DESK OFFICER, WOLF 300.00 ANXIETY UNSPEC 03/19/2012 GIANA ICT HELP DESK OFFICER, WOLF 314.00 ADHD INATTENTIVE 03/19/2012 GIANA ICT HELP DESK OFFICER, WOLF 724.5 BACK PAIN, GENERAL 03/19/2012 GIANA ICT HELP DESK OFFICER, WOLF 784.92 JAW PAIN 03/19/2012 WOLF FARIA APRN 300.00 ANXIETY UNSPEC 03/19/2012 WOLF FARIA APRN 314.00 ADHD INATTENTIVE 03/19/2012 WOLF FARIA APRN 724.5 BACK PAIN, GENERAL 03/19/2012 WOLF FARIA APRN 784.92 JAW PAIN 04/13/2012 RIOS KAPLAN APRN 466.0 ACUTE BRONCHITIS 04/13/2012 RIOS KAPLAN APRN T 466.0 ACUTE BRONCHITIS 04/13/2012 TYRESE DAVISON MD 466.0 ACUTE BRONCHITIS 04/13/2012 JOSLYN SMITH MD 466.0 ACUTE BRONCHITIS 04/13/2012 MERRITT DO, MARILEE K 466.0 ACUTE BRONCHITIS 04/13/2012 466.0 ACUTE BRONCHITIS [...] 11/14/2013 A 786.2 COUGH 11/26/2013 AISSATOU REDDY ICT HELP DESK OFFICER Ot 338.29 OTHER CHRONIC PAIN 11/26/2013 AISSATOU REDDY ICT HELP DESK OFFICER Ot 780.96 GENERALIZED PAIN 12/11/2013 AISSATOU REDDY ICT HELP DESK OFFICER Ot 338.29 OTHER CHRONIC PAIN 12/11/2013 AISSATOU REDDY APRN Ot 724.2 LUMBAGO 12/11/2013 AISSATOU REDDY ICT HELP DESK OFFICER Ot 780.4 DIZZINESS AND GIDDINESS 02/17/2014 RD BAKER Ot 054.9 HERPES SIMPLEX NOS 02/17/2014 RD BAKER Ot 300.00 ANXIETY STATE NOS 02/17/2014 RD BAKER Ot 314.01 ATTN DEFICIT W HYPERACT 02/17/2014 RD BAKER Ot 782.1 NONSPECIF SKIN ERUPT NEC 02/27/2014 AISSATOU REDDY APRN Ot 300.00 ANXIETY STATE NOS 02/27/2014 AISSATOU REDDY ICT HELP DESK OFFICER Ot 305.70 AMPHETAMINE ABUSE-UNSPEC 02/27/2014 AISSATOU REDDY APRN Ot 314.01 ATTN DEFICIT W HYPERACT 02/27/2014 AISSATOU REDDY APRN Ot 338.29 OTHER CHRONIC PAIN 02/27/2014 AISSATOU REDDY ICT HELP DESK OFFICER Ot 724.5 BACKACHE NOS 02/27/2014 AISSATOU REDDY ICT HELP DESK OFFICER Ot 729.5 PAIN IN LIMB 02/27/2014 AISSATOU REDDY ICT HELP DESK OFFICER Ot V65.2 PERSON FEIGNING ILLNESS 03/28/2014 F 042 HUMAN IMMUNODEFICIENCY VIRUS (HIV) DISEASE 03/28/2014 F 070.70 HPT C W/O HEPAT COMA NOS 03/28/2014 F 338.29 OTHER CHRONIC PAIN 04/26/2014 TUNDE ANDREWS DO Ot 338.29 OTHER CHRONIC PAIN 04/27/2014 F 311 Depressive disorder, NOS 04/27/2014 F 314.00 ATTN DEFIC NONHYPERACT 05/01/2014 AISSATOU REDDY ICT HELP DESK OFFICER Ot 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 05/01/2014 AISSATOU REDDY ICT HELP DESK OFFICER Ot 070.70 UNSPECIFIED VIRAL HEPATITIS C WITHOUT HE 05/01/2014 AISSATOU REDDY ICT HELP DESK OFFICER Ot 300.00 ANXIETY STATE NOS 05/01/2014 AISSATOU REDDY ICT HELP DESK OFFICER Ot 305.1 TOBACCO USE DISORDER 05/01/2014 AISSATOU REDDY ICT HELP DESK OFFICER Ot 314.01 ATTN DEFICIT W HYPERACT 05/01/2014 AISSATOU REDDY ICT HELP DESK OFFICER Ot 338.29 OTHER CHRONIC PAIN 05/01/2014 AISSATOU REDDY APRN Ot 724.5 BACKACHE NOS 05/01/2014 AISSATOU REDDY APRN Ot 780.2 SYNCOPE AND COLLAPSE 05/01/2014 AISSATOU REDDY APRN Ot 780.4 DIZZINESS AND GIDDINESS 05/01/2014 AISSATOU REDDY APRN Ot V58.69 OTH MED,LT,CURRENT USE 07/21/2014 EDWAR WINSTON 300.02 AN GEN ANXIETY 07/21/2014 EDWAR WINSTON 314.01 ADHD COMBINED 07/21/2014 GIANA ICT HELP DESK OFFICER, WOLF 300.02 AN GEN ANXIETY 07/21/2014 GIANA ICT HELP DESK OFFICER, WOLF 314.01 ADHD COMBINED 07/21/2014 GIANA ICT HELP DESK OFFICER, WOLF 300.02 AN GEN ANXIETY 07/21/2014 GIANA ICT HELP DESK OFFICER, WOLF 314.01 ADHD COMBINED 07/21/2014 TYRESE DAVISON MD 300.02 AN GEN ANXIETY 07/21/2014 TYRESE DAVISON MD 314.01 ADHD COMBINED 07/21/2014 GIANA ICT HELP DESK OFFICER, WOLF 300.02 AN GEN ANXIETY 07/21/2014 GIANA ICT HELP DESK OFFICER, WOLF 314.01 ADHD COMBINED 07/21/2014 GIANA ICT HELP DESK OFFICER, WOLF 300.02 AN GEN ANXIETY 07/21/2014 GIANA ICT HELP DESK OFFICER, WOLF 314.01 ADHD COMBINED 09/01/2014 GIANA ICT HELP DESK OFFICER, WOLF 304.00 OPIOID DEPENDENCE 09/01/2014 GIANA ICT HELP DESK OFFICER, WOLF 307.42 PERSISTENT DISORDER OF INITIATING OR MAINTAINING SLEEP 09/01/2014 GIANA ICT HELP DESK OFFICER, WOLF V58.69 MEDICATION HIGH RISK 09/01/2014 GIANA ICT HELP DESK OFFICER, WOLF 304.00 OPIOID DEPENDENCE 09/01/2014 GIANA ICT HELP DESK OFFICER, WOLF 307.42 PERSISTENT DISORDER OF INITIATING OR [...] INITI 01/08/2016 AISSATOU REDDY APRN Ot Y92.[address] [facility] 01/08/2016 AISSATOU REDDY APRN Ot [...] 01/09/2016 AISSATOU REDDY APRN Ot Z87.891 01/16/2016 TUNDE ANDREWS DO Ot S01.81XD LACERATION W/O FOREIGN BODY OF OTH PART 01/17/2016 LUCÍA ANDREWS DOA Adriana Ot S01.81XD LACERATION W/O FOREIGN BODY [...] 06/16/2016 AISSATOU REDDY APRN Ot Z79.899 OTHER METAL PICKLING EQUIPMENT OPERATOR (CURRENT) DRUG THERAPY 06/18/2016 AISSATOU REDDY APRN [...] Ot M79.605 PAIN IN LEFT LEG 07/18/2017 REDDY, PETER J ICT HELP DESK OFFICER Ot Z21 ASYMPTOMATIC HUMAN IMMUNODEFICIENCY VIRU 07/18/2017 AISSATOU REDDY ICT HELP DESK OFFICER Ot Z87.891 PERSONAL HISTORY OF NICOTINE DEPENDENCE [...] F41.9 ANXIETY DISORDER, UNSPECIFIED 10/30/2017 AISSATOU REDDY ICT HELP DESK OFFICER Ot F90.9 ATTENTION-DEFICIT HYPERACTIVITY DISORDER 10/30/2017 AISSATOU REDDY APRN Ot J10.08 INFLUENZA DUE TO OTH IDENT INFLUENZA VIR 10/30/2017 AISSATOU REDDY APRN Ot J11.1 FLU DUE TO UNIDENTIFIED INFLUENZA VIRUS 10/30/2017 AISSATOU REDDY ICT HELP DESK OFFICER Ot J18.1 LOBAR PNEUMONIA, UNSPECIFIED ORGANISM 10/30/2017 AISSATOU REDDY ICT HELP DESK OFFICER Ot Z21 ASYMPTOMATIC HUMAN IMMUNODEFICIENCY VIRU 10/30/2017 AISSATOU REDDY ICT HELP DESK OFFICER Ot Z87.891 PERSONAL HISTORY OF NICOTINE DEPENDENCE 10/30/2017 AISSATOU REDDY ICT HELP DESK OFFICER Ot Z88.5 ALLERGY STATUS TO NARCOTIC AGENT STATUS 10/30/2017 AISSATOU REDDY ICT HELP DESK OFFICER Ot Z91.14 PATIENT'S OTHER NONCOMPLIANCE WITH MEDIC 11/02/2017 AISSATOU REDDY ICT HELP DESK OFFICER Ot B19.20 UNSPECIFIED VIRAL HEPATITIS C WITHOUT HE 11/02/2017 AISSATOU REDDY APRN Ot F41.9 ANXIETY DISORDER, UNSPECIFIED 11/02/2017 AISSATOU REDDY ICT HELP DESK OFFICER Ot F90.9 ATTENTION-DEFICIT HYPERACTIVITY DISORDER 11/02/2017 AISSATOU [...] OTH IDENT INFLUENZA VIR 11/02/2017 AISSATOU REDDY ICT HELP DESK OFFICER Ot J11.1 FLU DUE TO UNIDENTIFIED INFLUENZA VIRUS 11/02/2017 AISSATOU REDDY APRN Ot J18.1 LOBAR PNEUMONIA, UNSPECIFIED ORGANISM 11/02/2017 AISSATOU REDDY APRN Ot Z21 ASYMPTOMATIC HUMAN IMMUNODEFICIENCY VIRU 11/02/2017 AISSATOU REDDY APRN Ot Z87.891 PERSONAL HISTORY OF NICOTINE DEPENDENCE 11/02/2017 AISSATOU REDDY APRN Ot Z88.5 ALLERGY STATUS TO NARCOTIC AGENT STATUS 11/02/2017 AISSATOU REDDY ICT HELP DESK OFFICER Ot Z91.14 PATIENT'S OTHER NONCOMPLIANCE WITH MEDIC 11/20/2017 AISSATOU REDDY ICT HELP DESK OFFICER Ot B34.9 VIRAL INFECTION, UNSPECIFIED 11/20/2017 AISSATOU REDDY APRN Ot F41.9 ANXIETY DISORDER, UNSPECIFIED 11/20/2017 AISSATOU REDDY ICT HELP DESK OFFICER Ot F90.9 ATTENTION-DEFICIT HYPERACTIVITY DISORDER 11/20/2017 AISSATOU REDDY ICT HELP DESK OFFICER Ot R53.1 WEAKNESS 11/20/2017 AISSATOU REDDY ICT HELP DESK OFFICER Ot Z21 ASYMPTOMATIC HUMAN IMMUNODEFICIENCY VIRU 11/20/2017 AISSATOU REDDY ICT HELP DESK OFFICER Ot Z87.891 PERSONAL HISTORY OF NICOTINE DEPENDENCE 11/20/2017 AISSATOU REDDY ICT HELP DESK OFFICER Ot Z88.5 ALLERGY STATUS TO NARCOTIC AGENT STATUS 11/20/2017 AISSATOU REDDY ICT HELP DESK OFFICER Ot Z91.14 PATIENT'S OTHER NONCOMPLIANCE WITH MEDIC 11/23/2017 AISSATOU REDDY APRN Ot B34.9 VIRAL INFECTION, UNSPECIFIED 11/23/2017 AISSATOU REDDY APRN Ot F41.9 ANXIETY DISORDER, UNSPECIFIED 11/23/2017 AISSATOU REDDY ICT HELP DESK OFFICER Ot F90.9 ATTENTION-DEFICIT HYPERACTIVITY DISORDER 11/23/2017 AISSATOU REDDY ICT HELP DESK OFFICER Ot R53.1 WEAKNESS 11/23/2017 AISSATOU REDDY ICT HELP DESK OFFICER Ot Z21 ASYMPTOMATIC HUMAN IMMUNODEFICIENCY VIRU 11/23/2017 AISSATOU REDDY APRN Ot Z87.891 PERSONAL HISTORY OF NICOTINE DEPENDENCE 11/23/2017 AISSATOU REDDY APRN Ot Z88.5 ALLERGY STATUS TO NARCOTIC AGENT STATUS 11/23/2017 AISSATOU REDDY ICT HELP DESK OFFICER Ot Z91.14 PATIENT'S OTHER NONCOMPLIANCE WITH MEDIC 02/21/2018 CLAUDINE VALADEZ DOIC B Ot B19.20 UNSPECIFIED VIRAL HEPATITIS C WITHOUT HE 02/21/2018 CLAUDINE VALADEZ DOIC B Ot K56.690 OTHER PARTIAL INTESTINAL OBSTRUCTION 02/21/2018 CLAUDINE VALADEZ DOIC B Ot T18.4XXA FOREIGN BODY IN COLON, INITIAL ENCOUNTER 02/21/2018 CLAUDINE VALADEZ DOIC B Ot Z21 ASYMPTOMATIC HUMAN IMMUNODEFICIENCY VIRU 02/21/2018 CLAUDINE VALADEZ DOIC B Ot Z79.899 OTHER METAL PICKLING EQUIPMENT OPERATOR (CURRENT) DRUG THERAPY 02/25/2018 CLAUDINE VALADEZ DOIC B Ot B19.20 UNSPECIFIED VIRAL HEPATITIS C WITHOUT HE 02/25/2018 CLAUDINE VALADEZ DOIC B Ot K56.690 OTHER PARTIAL INTESTINAL OBSTRUCTION 02/25/2018 CLAUDINE VALADEZ DOIC B Ot T18.4XXA FOREIGN BODY IN COLON, INITIAL ENCOUNTER 02/25/2018 CLAUDINE VALADEZ DOIC B Ot Z21 ASYMPTOMATIC HUMAN IMMUNODEFICIENCY VIRU 02/25/2018 CLAUDINE VALADEZ DOIC B Ot Z79.899 OTHER ASSISTED (CURRENT) DRUG THERAPY 02/26/2018 CLAUDINE VALADEZ DOIC B Ot B19.20 UNSPECIFIED VIRAL HEPATITIS C WITHOUT HE 02/26/2018 CLAUDINE VALADEZ DOIC B Ot K56.690 OTHER PARTIAL INTESTINAL OBSTRUCTION 02/26/2018 CLAUDINE VALADEZ DOIC B Ot T18.4XXA FOREIGN BODY IN COLON, INITIAL ENCOUNTER 02/26/2018 PETE VALADEZ DO B Ot Z21 ASYMPTOMATIC HUMAN IMMUNODEFICIENCY VIRU 02/26/2018 CLAUDINE VALADEZ DOIC B Ot Z79.899 OTHER ASSISTED (CURRENT) DRUG THERAPY 07/08/2018 AISSATOU REDDY APRN Ot B19.20 UNSPECIFIED VIRAL HEPATITIS C WITHOUT HE 07/08/2018 AISSATOU REDDY APRN Ot F12.10 CANNABIS ABUSE, UNCOMPLICATED 07/08/2018 AISSATOU REDDY APRN Ot F15.10 OTHER STIMULANT ABUSE, UNCOMPLICATED 07/08/2018 AISSATOU REDDY APRN Ot F32.9 MAJOR DEPRESSIVE DISORDER, SINGLE EPISOD 07/08/2018 AISSATOU REDDY APRN Ot F41.9 ANXIETY DISORDER, UNSPECIFIED 07/08/2018 AISSATOU REDDY APRN Ot F90.9 ATTENTION-DEFICIT HYPERACTIVITY DISORDER 07/08/2018 AISSATOU REDDY APRN Ot R42 DIZZINESS AND GIDDINESS 07/08/2018 AISSATOU REDDY APRN Ot Z87.09 PERSONAL HISTORY OF OTHER DISEASES OF TH 07/08/2018 AISSATOU REDDY APRN Ot Z87.19 PERSONAL HISTORY OF OTHER DISEASES OF TH 07/08/2018 AISSATOU REDDY APRN Ot Z87.891 PERSONAL HISTORY OF NICOTINE DEPENDENCE 07/08/2018 AISSATOU REDDY APRN Ot Z88.5 ALLERGY STATUS TO NARCOTIC AGENT STATUS 07/08/2018 AISSATOU REDDY APRN Ot Z90.89 ACQUIRED ABSENCE OF OTHER ORGANS 07/12/2018 AISSATOU REDDY APRN Ot B19.20 UNSPECIFIED VIRAL HEPATITIS C WITHOUT HE 07/12/2018 AISSATOU REDDY ICT HELP DESK OFFICER Ot F12.10 CANNABIS ABUSE, UNCOMPLICATED 07/12/2018 AISSATOU REDDY APRN Ot F15.10 OTHER STIMULANT ABUSE, UNCOMPLICATED 07/12/2018 AISSATOU REDDY APRN Ot F32.9 MAJOR DEPRESSIVE DISORDER, SINGLE EPISOD 07/12/2018 AISSATOU REDDY APRN Ot F41.9 ANXIETY DISORDER, UNSPECIFIED 07/12/2018 AISSATOU REDDY APRN Ot F90.9 ATTENTION-DEFICIT HYPERACTIVITY DISORDER 07/12/2018 AISSATOU REDDY APRN Ot R42 DIZZINESS AND GIDDINESS 07/12/2018 AISSATOU REDDY APRN Ot Z87.09 PERSONAL HISTORY OF OTHER DISEASES OF TH 07/12/2018 AISSATOU REDDY APRN Ot Z87.19 PERSONAL HISTORY OF OTHER DISEASES OF TH 07/12/2018 AISSATOU REDDY APRN Ot Z87.891 PERSONAL HISTORY OF NICOTINE DEPENDENCE 07/12/2018 AISSATOU REDDY APRN Ot Z88.5 ALLERGY STATUS TO NARCOTIC AGENT STATUS 07/12/2018 AISSATOU REDDY APRN Ot Z90.89 ACQUIRED ABSENCE OF OTHER ORGANS 08/25/2018 AISSATOU REDDY APRN Ot B19.20 UNSPECIFIED VIRAL HEPATITIS C WITHOUT HE 08/25/2018 AISSATOU REDDY APRN Ot F12.10 CANNABIS ABUSE, UNCOMPLICATED 08/25/2018 AISSATOU REDDY APRN Ot F15.10 OTHER STIMULANT ABUSE, UNCOMPLICATED 08/25/2018 AISSATOU REDDY APRN Ot F32.9 MAJOR DEPRESSIVE DISORDER, SINGLE EPISOD 08/25/2018 AISSATOU REDDY APRN Ot F41.9 ANXIETY DISORDER, UNSPECIFIED 08/25/2018 AISSATOU REDDY APRN Ot F90.9 ATTENTION-DEFICIT HYPERACTIVITY DISORDER 08/25/2018 AISSATOU REDDY APRN Ot Z86.19 PERSONAL HISTORY OF OTHER INFECTIOUS AND 08/25/2018 AISSATOU REDDY APRN Ot Z87.09 PERSONAL HISTORY OF OTHER DISEASES OF TH 08/25/2018 AISSATOU REDDY APRN Ot Z87.19 PERSONAL HISTORY OF OTHER DISEASES OF TH 08/25/2018 AISSATOU REDDY APRN Ot Z87.891 PERSONAL HISTORY OF NICOTINE DEPENDENCE 08/25/2018 AISSATOU REDDY APRN Ot Z88.5 ALLERGY STATUS TO NARCOTIC AGENT STATUS 08/25/2018 AISSATOU REDDY APRN Ot Z90.49 ACQUIRED ABSENCE OF OTHER SPECIFIED PART 08/27/2018 AISSATOU REDDY APRN Ot B19.20 UNSPECIFIED VIRAL HEPATITIS C WITHOUT HE 08/27/2018 AISSATOU REDDY APRN Ot F12.10 CANNABIS ABUSE, UNCOMPLICATED 08/27/2018 AISSATOU REDDY APRN Ot F15.10 OTHER STIMULANT ABUSE, UNCOMPLICATED 08/27/2018 AISSATOU REDDY APRN Ot F32.9 MAJOR DEPRESSIVE DISORDER, SINGLE EPISOD 08/27/2018 AISSATOU REDDY APRN Ot F41.9 ANXIETY DISORDER, UNSPECIFIED 08/27/2018 AISSATOU REDDY APRN Ot F90.9 ATTENTION-DEFICIT HYPERACTIVITY DISORDER 08/27/2018 AISSATOU REDDY APRN Ot Z86.19 PERSONAL HISTORY OF OTHER INFECTIOUS AND 08/27/2018 AISSATOU REDDY APRN Ot Z87.09 PERSONAL HISTORY OF OTHER DISEASES OF TH 08/27/2018 AISSATOU REDDY APRN Ot Z87.19 PERSONAL HISTORY OF OTHER DISEASES OF TH 08/27/2018 AISSATOU REDDY APRN Ot Z87.891 PERSONAL HISTORY OF NICOTINE DEPENDENCE 08/27/2018 AISSATOU REDDY APRN Ot Z88.5 ALLERGY STATUS TO NARCOTIC AGENT STATUS 08/27/2018 AISSATOU REDDY APRN Ot Z90.49 ACQUIRED ABSENCE OF OTHER SPECIFIED PART 08/30/2018 Abbie Muniz A W 300.00 ANXIETY STATE, UNSPECIFIED 08/30/2018 Abbie Muniz W F41.9 ANXIETY DISORDER, UNSPECIFIED 08/31/2018 AISSATOU REDDY APRN Ot B19.20 UNSPECIFIED VIRAL HEPATITIS C WITHOUT HE 08/31/2018 AISSATOU REDDY APRN Ot F12.10 CANNABIS ABUSE, UNCOMPLICATED 08/31/2018 AISSATOU REDDY APRN Ot F15.10 OTHER STIMULANT ABUSE, UNCOMPLICATED 08/31/2018 AISSATOU REDDY APRN Ot F32.9 MAJOR DEPRESSIVE DISORDER, SINGLE EPISOD 08/31/2018 AISSATOU REDDY APRN Ot F41.9 ANXIETY DISORDER, UNSPECIFIED 08/31/2018 AISSATOU REDDY APRN Ot F90.9 ATTENTION-DEFICIT HYPERACTIVITY DISORDER 08/31/2018 AISSATOU REDDY APRN Ot Z86.19 PERSONAL HISTORY OF OTHER INFECTIOUS AND 08/31/2018 AISSATOU REDDY APRN Ot Z87.09 PERSONAL HISTORY OF OTHER DISEASES OF TH 08/31/2018 AISSATOU REDDY APRN Ot Z87.19 PERSONAL HISTORY OF OTHER DISEASES OF TH 08/31/2018 AISSATOU REDDY APRN Ot Z87.891 PERSONAL HISTORY OF NICOTINE DEPENDENCE 08/31/2018 AISSATOU REDDY APRN Ot Z88.5 ALLERGY STATUS TO NARCOTIC AGENT STATUS 08/31/2018 AISSATOU REDDY APRN Ot Z90.49 ACQUIRED ABSENCE OF OTHER SPECIFIED PART 10/20/2018 AISSATOU REDDY APRN Ot B19.20 UNSPECIFIED VIRAL HEPATITIS C WITHOUT HE 10/20/2018 AISSATOU REDDY APRN Ot F32.9 MAJOR DEPRESSIVE DISORDER, SINGLE EPISOD 10/20/2018 AISSATOU REDDY APRN Ot F41.9 ANXIETY DISORDER, UNSPECIFIED 10/20/2018 AISSATOU REDDY APRN Ot F90.9 ATTENTION-DEFICIT HYPERACTIVITY DISORDER 10/20/2018 AISSATOU REDDY APRN Ot F98.8 OTH BEHAV/EMOTN DISORD W ONSET USLY OCCU 10/20/2018 AISSATOU REDDY APRN Ot R53.1 WEAKNESS 10/20/2018 AISSATOU REDDY APRN Ot S06.0X9A CONCUSSION W LOSS OF CONSCIOUSNESS OF UN 10/20/2018 AISSATOU REDDY APRN Ot X58.XXXA EXPOSURE TO OTHER SPECIFIED FACTORS, INI 10/20/2018 AISSATOU REDDY APRN Ot Z21 ASYMPTOMATIC HUMAN IMMUNODEFICIENCY VIRU 10/20/2018 AISSATOU REDDY APRN Ot Z86.19 PERSONAL HISTORY OF OTHER INFECTIOUS AND 10/20/2018 AISSATOU REDDY APRN Ot Z87.09 PERSONAL HISTORY OF OTHER DISEASES OF TH 10/20/2018 AISSATOU REDDY APRN Ot Z87.19 PERSONAL HISTORY OF OTHER DISEASES OF TH 10/20/2018 AISSATOU REDDY APRN Ot Z87.891 PERSONAL HISTORY OF NICOTINE DEPENDENCE 10/20/2018 AISSATOU REDDY APRN Ot Z88.5 ALLERGY STATUS TO NARCOTIC AGENT STATUS 10/20/2018 AISSATOU REDDY APRN Ot Z90.49 ACQUIRED ABSENCE OF OTHER SPECIFIED PART 10/20/2018 AISSATOU REDDY APRN Ot Z91.14 PATIENT'S OTHER NONCOMPLIANCE WITH MEDIC 10/20/2018 AISSATOU REDDY APRN Ot Z98.890 OTHER SPECIFIED POSTPROCEDURAL STATES 10/24/2018 AISSATOU REDDY APRN Ot B19.20 UNSPECIFIED VIRAL HEPATITIS C WITHOUT HE 10/24/2018 AISSATOU REDDY APRN Ot F32.9 MAJOR DEPRESSIVE DISORDER, SINGLE EPISOD 10/24/2018 AISSATOU REDDY APRN Ot F41.9 ANXIETY DISORDER, UNSPECIFIED 10/24/2018 AISSATOU REDDY APRN Ot F90.9 ATTENTION-DEFICIT HYPERACTIVITY DISORDER 10/24/2018 AISSATOU REDDY APRN Ot F98.8 OTH BEHAV/EMOTN DISORD W ONSET USLY OCCU 10/24/2018 AISSATOU REDDY APRN Ot R53.1 WEAKNESS 10/24/2018 AISSATOU REDDY APRN Ot S06.0X9A CONCUSSION W LOSS OF CONSCIOUSNESS OF UN 10/24/2018 AISSATOU REDDY APRN Ot X58.XXXA EXPOSURE TO OTHER SPECIFIED FACTORS, INI 10/24/2018 AISSATOU REDDY APRN Ot Z21 ASYMPTOMATIC HUMAN IMMUNODEFICIENCY VIRU 10/24/2018 AISSATOU REDDY APRN Ot Z86.19 PERSONAL HISTORY OF OTHER INFECTIOUS AND 10/24/2018 AISSATOU REDDY APRN Ot Z87.09 PERSONAL HISTORY OF OTHER DISEASES OF TH 10/24/2018 AISSATOU REDDY APRN Ot Z87.19 PERSONAL HISTORY OF OTHER DISEASES OF TH 10/24/2018 AISSATOU REDDY APRN Ot Z87.891 PERSONAL HISTORY OF NICOTINE DEPENDENCE 10/24/2018 AISSATOU REDDY APRN Ot Z88.5 ALLERGY STATUS TO NARCOTIC AGENT STATUS 10/24/2018 AISSATOU REDDY APRN Ot Z90.49 ACQUIRED ABSENCE OF OTHER SPECIFIED PART 10/24/2018 AISSATOU REDDY APRN Ot Z91.14 PATIENT'S OTHER NONCOMPLIANCE WITH MEDIC 10/24/2018 AISSATOU REDDY APRN Ot Z98.890 OTHER SPECIFIED POSTPROCEDURAL STATES Procedures Code [place] [address] URINE DRUG SCREEN (IN-HOUSE ) 09/01/2012 [id number] ROUTINE VENIPUNCTURE 08/10/2013 [id number] GFR CALC (RESULT ONLY) 08/10/2013 89141 CMP 08/10/2013 93112 LIPID PANEL 08/10/2013 [id number] [facility] HIV SPEC FOR RML MOLECULAR 08/10/2013 17817 CBC 08/10/2013 27057 HIV-1 DNA QUANT 08/14/2013 [id number] T-HELPER COUNT/RATIO CD- 4 CD-8 08/15/2013 35581 INFLUENZA ASSAY W/OPTIC 11/14/2013 51832 EMERGENCY DEPT VISIT 11/14/2013 42830 ROUTINE VENIPUNCTURE 03/01/2014 [id number] T-HELPER COUNT/RATIO CD- 4 CD-8 03/01/2014 03077 URINE DRUG SCREEN (IN-HOUSE ) 03/01/2014 86184 CBC 03/01/2014 [id number] GFR CALC (RESULT ONLY) 03/01/2014 32978 CMP 03/01/2014 34511 LIPID PANEL 03/01/2014 [id number] [facility] HIV SPEC FOR RML MOLECULAR 03/01/2014 63352 AMMONIA 03/01/2014 88791 PT/INR 03/02/2014 02138 TSH 03/02/2014 47081 AFP TUMOR MARKER 03/02/2014 43489 SYPHILLIS TEST 03/02/2014 54770 HIV-1 DNA QUANT 03/03/2014 79347 HEP C PCR QUANT (SERIAL) 03/06/2014 53094 PSYCH DIAGNOSTIC EVALUATION 07/24/2014 57243 URINE DRUG SCREEN (IN-HOUSE ) 09/01/2014 46564 [employer] 10/03/2014 23731 ROUTINE VENIPUNCTURE GENEVIEVE MATOS MD 02/27/2016 34173 COMPREHEN METABOLIC PANEL GENEVIEVE MATOS MD 02/27/2016 57593 LIPID PANEL GENEVIEVE MATOS MD 02/27/2016 67791 ASSAY THYROID STIM HORMONE GENEVIEVE MATOS MD 02/27/2016 93143 FREE ASSAY (FT-3) GENEVIEVE MATOS MD 02/27/2016 53113 COMPLETE CBC W/AUTO DIFF WBC GENEVIEVE MATOS [...] 284 10^3u 142-424 MPV 11.6 FL 9.4-12.4 [place] # 0.76 10^3u 0.0-1.0 RBC 5.04 10^6u 4.04-6.13 [place] % 14.3 % 0-12 RDW 14.9 % [...] STAIN RESULT FEW WBC'S, NO BACTERIA OBSERVED [facility] Bacteria identification in wound by culture - 07/07/17 16:23 Bacteria identification in wound by culture [id number] [facility] FREE TEXT EXTERNAL SENSITIVITY REPORTED 07/08 17:10 NRG QUANTITY OF GROWTH Moderate Growth NR MRSA AGAR MRSA isolated (Screening test for MRSA is positive) [facility] Bacterial susceptibility panel - 07/07/17 16:23 Oxacillin [...] FOR INFLUENZA A AND B ANTIGENS BY [facility] Complete blood count (CBC) with automated white [...] 10/30/17 12:47 Bacterial blood culture NG NRG Complete blood count (CBC) with automated [...] INFLUENZA A AND B ANTIGENS BY [facility] NR Complete urinalysis with reflex to culture - [...] count by microscopy (number/high power field) NONE [facility] Automated urine sediment leukocyte count by microscopy [...] automated white blood cell (WBC) differential - 07/08/18 14:00 Blood leukocytes automated count (number/volume) 5.9 10*3/uL 4.3-11.0 Blood erythrocytes automated count (number/volume) 5.31 10*6/uL 4.35-5.85 Venous blood hemoglobin measurement (mass/volume) 12.3 g/dL 13.3-17.7 Blood hematocrit (volume fraction) 38 % 40-54 Automated erythrocyte mean corpuscular volume 71 [foz_us] 80-99 Automated erythrocyte mean corpuscular hemoglobin (mass per erythrocyte) 23 pg 25-34 Automated erythrocyte mean corpuscular hemoglobin concentration measurement ( mass/volume) 33 g/dL 32-36 Automated erythrocyte distribution width ratio 14.6 % 10.0-14.5 Automated blood platelet count (count/volume) 272 10*3/uL 130-400 Automated blood platelet mean volume measurement 12.0 [foz_us] 7.4-10.4 Automated blood neutrophils/100 leukocytes 48 % 42-75 Automated blood lymphocytes/100 leukocytes 39 % 12-44 Blood monocytes/100 leukocytes 11 % 0-12 Automated blood eosinophils/100 leukocytes 1 % 0-10 Automated blood basophils/100 leukocytes 1 % 0-10 Blood neutrophils automated count (number/volume) 2.8 10*3 1.8-7.8 Blood lymphocytes automated count (number/volume) 2.3 10*3 1.0-4.0 Blood monocytes automated count (number/volume) 0.7 10*3 0.0-1.0 Automated eosinophil count 0.1 10*3/uL 0.0-0.3 Automated blood basophil count (count/volume) 0.1 10*3/uL 0.0-0.1 Comprehensive metabolic panel - 07/08/18 14:00 Serum or plasma sodium measurement (moles/volume) 134 mmol/L 135-145 Serum or plasma potassium measurement (moles/volume) 3.9 mmol/L 3.6-5.0 Serum or plasma chloride measurement (moles/volume) 102 mmol/L 98-107 Carbon dioxide 22 mmol/L 21-32 Serum or plasma anion gap determination (moles/volume) 10 mmol/L 5-14 Serum or plasma urea nitrogen measurement (mass/volume) 25 mg/dL 7-18 Serum or plasma creatinine measurement (mass/volume) 0.87 mg/dL 0.60-1.30 Serum or plasma urea nitrogen/creatinine mass ratio 29 NRG Serum or plasma creatinine measurement with calculation of estimated glomerular filtration rate > NRG Serum or plasma glucose measurement (mass/volume) 101 mg/dL 70-105 Serum or plasma calcium measurement (mass/volume) 9.2 mg/dL 8.5-10.1 Serum or plasma total bilirubin measurement (mass/volume) 0.5 mg/dL 0.1-1.0 Serum or plasma alkaline phosphatase measurement (enzymatic activity/volume) 66 U/L 40-136 Serum or plasma aspartate aminotransferase measurement (enzymatic activity/ volume) 43 U/L 5-34 Serum or plasma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
[2018-10-31] MEDS ORDERED: morphine INJ 10 MG/ML 1ML (SYR OR VIAL) ONE (14:22)
[2018-10-31] MEDS ORDERED: proPOfol 200 MG/20 ML (DIPRIVAN) VIAL IV ONE (14:27)
[2018-10-31] MEDS ORDERED: LIDOCAINE PF 2% 5 ML (XYLOCAINE) VIAL ONE (14:27)
[2018-10-31] MEDS ORDERED: ROCURONIUM 10 MG/ML 5 ML SYRINGE IV ONE (14:27)
[2018-10-31] MEDS ORDERED: fentaNYL INJECTION 100 MCG/2 ML AMP ONE (14:28)
[2018-10-31] MEDS ORDERED: MIDAZOLAM 2 MG/2 ML (VERSED) VIAL ONE (14:28)
[2018-10-31] MEDS ORDERED: SEVOFLURANE (ULTANE) 15 ML INHAL SOLN ONE (14:29)
[2018-10-31] MEDS ORDERED: SUCCINYLCHOLINE INJ 100 MG/5 ML SYR ONE ×2 (14:29→15:00)
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
[2018-10-31] MEDS ORDERED: LACTATED RINGERS 1,000 ML IV ONE (15:00)
[2018-10-31] MEDS ORDERED: LACTATED RINGERS 1,000 ML IV PRN (15:05)
--- NOTE | 2018-10-31 15:06 | Progress Note-Post Operative ---
Post-Operative Progess Note Surgeon (s)/Lead Burner Apprentice (s) Surgeon PETE VALADEZ DO Lead Burner Apprentice: none Pre-Operative Diagnosis Retained Foreign body in rectum, HIV, HEP C Post-Operative Diagnosis same Procedure & Operative Findings Date of Procedure 10/31/18 Procedure Performed/Findings Removal of foreign body Anesthesia Type GET Estimated Blood Loss Estimated blood loss (mL): scant Specimens/Packing Specimens Removed Tube of [employer] Toothpaste PETE VALADEZ DO Oct 31, 2018 15:06
--- NOTE | 2018-10-31 15:08 | Discharge Inst-Surgical ---
Discharge Inst-Surgical Depart Medication/Instructions New, Converted or Re-Newed RX: Other (none needed) Patient Instructions Follow up Appt: Make appointment if needed. [phone] Instructions: May shower or take a bath. You may have some rectal bleeding, this will stop on its own. Symptoms to Report: Appetite Changes, Extremity Discoloration, Numbness/Tingling, Swelling Increased , Bleeding Excessive, Eyesight Changes, Pain Increased, Urine Color Change, Constipation(Persistent), Fever over 101 degree F, Pain/Pressure in chest, Urinating Difficulty, Cough Up/Vomit Blood, Heart Beat Irreg/Pounding, Pain/ Pressure in jaw, Cramps in feet or legs, Lightheadedness, Pain/Pressure in shoulder, Diarrhea(Persistent), Memory Changes Suddenly, Questions/Concerns, Weight gain consecutive days, Dizziness/Fainting, Nausea/Vomiting, Shortness of Breath, Weight gain over 2 pounds If questions or concerns contact your physician Or seek help at emergency department. Activity Activity as Tolerated: Yes Driving Instructions: You May Drive Diet Discharge Diet: No Restrictions If Any Problems/Questions/Issu: Contact Your Physician, Go to Emergency Room Skin/Wound Care Infection Signs and Symptoms: Increased Redness, Foul Odor of Wound, Increased Drainage, Skin Itchy or Has a Rash, Increased Swelling, Temperature Above 101 F PETE VALADEZ DO Oct 31, 2018 15:08
[2018-10-31] MEDS ORDERED: morphine INJ 10 MG/ML 1ML (SYR OR VIAL) IVP ONE (15:30)
[2018-10-31 16:25] VITALS: BP 118/95
[2018-10-31 16:55] VITALS: BP 131/99
[2018-10-31 17:25] VITALS: BP 148/100
[2018-10-31 18:00] VITALS: BP 148/100
--- NOTE | 2018-10-31 23:42 | OPERATIVE REPORT ---
DATE OF SERVICE: 10/31/2018 PREOPERATIVE DIAGNOSIS: Retained foreign body in rectum. POSTOPERATIVE DIAGNOSES: Retained foreign body in rectum plus HIV and hep C. PROCEDURE: Removal of rectal foreign body. SURGEON: Denis Lujan DO. HOT STICK MAN: None. ANESTHESIA: General endotracheal tube. BLOOD LOSS: Scant. FLUIDS: Per anesthesia. POSTOPERATIVE CONDITION: Stable. INDICATION FOR PROCEDURE: The patient is a 53-year-old male who had a retained foreign body in the rectum, unable to pull this out and needed to get this removed. FINDINGS: The patient had a retained foreign body in the rectum. It was a tube of [employer] toothpaste. PROCEDURE NOTE: After informed consent was obtained, the patient was brought to the operating room, placed on the table in lithotomy position. Betadine was used to prep the rectal area. Anesthesia apparently relaxed the patient enough that it came down a little bit and able to feel the foreign body. Then with little bit of pressure from above, the object came down a little more. I was then able to grasp this, with my fingers and then pulled it out. The foreign object turned out to be a tube of [employer] toothpaste. There was a little bit of bleeding from the rectum after this was removed probably from scraping the edges of rectum with the tube. I could feel a lot of fecal material in the colon so I elected not to do the colonoscopy or even look in the rectum. Removed the tube of toothpaste without difficulty. The patient was then transferred to recovery room in stable condition. Job ID: [id number] DocumentID: [id number] Dictated Date: 10/31/2018 15:11:59 [employer] Torque Tester Date: 10/31/2018 23:41:59 Dictated By: DENIS LUJAN DO MTDD
--- NOTE | 2018-11-01 02:48 | Anesthesia-General Post-Op ---
General Patient Condition Mental Status/LOC: Same as Preop Cardiovascular: Satisfactory Nausea/Vomiting: Absent Respiratory: Satisfactory Pain: Controlled Complications: Absent Post Op Complications Complications None Follow Up Care/Instructions Patient Instructions None needed. Anesthesia/Patient Condition Patient Condition Patient is doing well, no complaints, stable vital signs, no apparent adverse anesthesia problems. No complications reported per nursing. JORGE PATEL CRNA Nov 01, 2018 02:48
== END 2018-10-31 18:00 | disposition home or self-care (01) ==
LOC: EDUNIT# 12:08 → ER 12:08 → SDC 14:11
PROVIDERS: ATTEND Surgery
DX: T18.5XXA Foreign body in anus and rectum, initial encounter (principal); B20 Human immunodeficiency virus [HIV] disease; J84.10 Pulmonary fibrosis, unspecified; B19.20 Unspecified viral hepatitis C without hepatic coma; M79.7 Fibromyalgia; F32.9 Major depressive disorder, single episode, unspecified; F41.9 Anxiety disorder, unspecified; F90.9 Attention-deficit hyperactivity disorder, unspecified type; Z87.891 Personal history of nicotine dependence; Z79.899 Other long term (current) drug therapy
CPT/HCPCS: 72170

== ENCOUNTER 2019-01-24 13:21 | Emergency (ER) | payer MEDICARE, MEDICAID ==
[~2019-01-24] VITALS: Ht 162.6 cm; Wt 68.0 kg
[2019-01-24] MEDS ORDERED: LACTATED RINGERS 1,000 ML IV ONE (13:35)
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
[2019-01-24] MEDS ORDERED: ACETAMINOPHEN 500 MG TAB (TYLENOL) PO ONE (13:45)
[2019-01-24] MEDS ORDERED: RT-ALBUTEROL/IPRATROPIUM 3 ML (DUONEB) VIAL INH ONE (13:45)
[2019-01-24 13:54] VITALS: BP 144/93
[2019-01-24 14:01] LABS: BASOPHILS % (AUTO) 0 % (0-10); EOSINOPHILS % (AUTO) 0 % (0-10); HEMATOCRIT 35 % (40-54); HEMOGLOBIN 11.3 G/DL (13.3-17.7); LYMPHOCYTES # (AUTO) 1.6 X 10^3 (1.0-4.0); LYMPHOCYTES % (AUTO) 25 % (12-44); MEAN CORPUSCULAR HEMOGLOBIN 23 PG (25-34); MEAN CORPUSCULAR HGB CONC 32 G/DL (32-36); MEAN CORPUSCULAR VOLUME 71 FL (80-99); MEAN PLATELET VOLUME 12.2 FL (7.4-10.4); MONOCYTES # (AUTO) 0.6 X 10^3 (0.0-1.0); MONOCYTES % (AUTO) 10 % (0-12); NEUTROPHILS # (AUTO) 4.1 X 10^3 (1.8-7.8); NEUTROPHILS % (AUTO) 65 % (42-75); PLATELET COUNT 211 10^3/uL (130-400); RED CELL DISTRIBUTION WIDTH 14.5 % (10.0-14.5); WHITE BLOOD COUNT 6.3 10^3/uL (4.3-11.0)
[2019-01-24 14:22] LABS: ALANINE AMINOTRANSFERASE 42 U/L (0-55); ALBUMIN 3.9 GM/DL (3.2-4.5); ALKALINE PHOSPHATASE 57 U/L (40-136); BILIRUBIN,TOTAL 0.7 MG/DL (0.1-1.0); BUN/CREATININE RATIO 51; CALCIUM 9.2 MG/DL (8.5-10.1); CARBON DIOXIDE 22 MMOL/L (21-32); CHLORIDE 102 MMOL/L (98-107); CREATININE SERUM 0.85 MG/DL (0.60-1.30); GFR ESTIMATED > 60; GLUCOSE 88 MG/DL (70-105); MAGNESIUM 2.1 MG/DL (1.8-2.4); POTASSIUM 4.2 MMOL/L (3.6-5.0); SODIUM 134 MMOL/L (135-145); TOTAL PROTEIN 8.5 GM/DL (6.4-8.2)
--- NOTE | 2019-01-24 14:26 | Diagnostic Imaging Report ---
INDICATION: Chest pain. Frontal chest obtained at 2:10 p.m. is compared to 07/08/2018. FINDINGS: Heart is borderline in size. Parenchymal scarring in the left apex and suprahilar region is unchanged compared to the prior study. There is chronic left apical pleural thickening. There is no new infiltrate. There is a questionable nodular density overlying the left base, for which followup is suggested. IMPRESSION: Borderline heart size. Chronic left apical scarring and left apical pleural thickening appear similar to the prior study. Questionable small nodular density overlying the left base, for which followup is recommended. No consolidation or pleural fluid. Dictated by: Dictated on workstation # [id number]
[2019-01-24 14:31] LABS: BILIRUBIN,URINE NEGATIVE (NEGATIVE); CLARITY,URINE SLIGHTLY CLOUDY; COLOR,URINE YELLOW; GLUCOSE, URINE (UA) NEGATIVE (NEGATIVE); KETONES,URINE 1+ (NEGATIVE); LEUKOCYTE ESTERASE ,URINE NEGATIVE (NEGATIVE); NITRITE,URINE NEGATIVE (NEGATIVE); PH,URINE 6.5 (5-9); PROTEIN,URINE 1+ (NEGATIVE); UROBILINOGEN,URINE NORMAL (NORMAL)
[2019-01-24 14:52] LABS: AMPHETAMINE SCREEN, URINE POSITIVE (NEGATIVE); BARBITURATE SCREEN URINE NEGATIVE (NEGATIVE); BENZODIAZEPINES SCREEN URINE NEGATIVE (NEGATIVE); CANNABINOID SCREEN, URINE NEGATIVE (NEGATIVE); COCAINE SCREEN URINE NEGATIVE (NEGATIVE); METHADONE STAT NEGATIVE (NEGATIVE); METHAMPHETAMINE SCREEN URINE S POSITIVE (NEGATIVE); OPIATE SCREEN URINE NEGATIVE (NEGATIVE); OXYCODONE STAT NEGATIVE (NEGATIVE); PROPOXYPHENE STAT NEGATIVE (NEGATIVE); TRICYCLIC ANTIDEPRESSANTS SCRE NEGATIVE (NEGATIVE)
[2019-01-24 14:57] LABS: BACTERIA,URINE NEGATIVE /HPF; SQUAMOUS EPITHELIAL CELL,UR RARE /HPF
== END 2019-01-24 15:52 | disposition home or self-care (01) ==
LOC: EDUNIT# 13:21 → ER 13:22
DX: R53.83 Other fatigue (principal); R91.1 Solitary pulmonary nodule; J44.9 Chronic obstructive pulmonary disease, unspecified; F14.10 Cocaine abuse, uncomplicated; F15.10 Other stimulant abuse, uncomplicated; M79.7 Fibromyalgia; F98.8 Other specified behavioral and emotional disorders with onset usually occurring in childhood and adolescence; F90.9 Attention-deficit hyperactivity disorder, unspecified type; F41.9 Anxiety disorder, unspecified; F32.9 Major depressive disorder, single episode, unspecified; B19.20 Unspecified viral hepatitis C without hepatic coma; Z88.5 Allergy status to narcotic agent; Z87.891 Personal history of nicotine dependence; Z86.19 Personal history of other infectious and parasitic diseases; Z90.49 Acquired absence of other specified parts of digestive tract; Z87.09 Personal history of other diseases of the respiratory system; Z87.19 Personal history of other diseases of the digestive system
CPT/HCPCS: 36415; 71045; 80053; 80306; 80320; 81000; 83605; 83735; 84443; 85025; 86141; 86308; 87040; 87077; 87186; 87220; 87430; 87804; 94640; 96360

== ENCOUNTER 2019-06-23 10:34 | Emergency (ER) | payer MEDICAID, MEDICARE ==
[~2019-06-23] VITALS: Ht 170.1 cm; Wt 45.4 kg
--- NOTE | 2019-06-23 10:57 | ED General ---
General Stated Complaint: TIRED;DIZZINESS Source of Information: Patient Exam Limitations: No Limitations History of Present Illness Date Seen by Provider: Jun 23, 2019 Time Seen by Provider: 10:55 Initial Comments to ER with reports of feeling tired and dizzy for the past few days. He hasn't had anything to eat for a few days, he is also HIV positive and noted to be noncompliant with treatment regimen. States he hasn't used any methamphetamine in over a month. Timing/Duration: 3-4 Days Severity: Moderate Associated Systoms: No Fever/Chills Allergies and Home Medications Allergies Coded Allergies: codeine (Verified Allergy, Unknown, 01/18/16) hydrocodone (Verified Allergy, Unknown, 01/18/16) Home Medications Alprazolam 2 Mg Tablet, 2 MG PO HS, (Reported) Amphet Asp/Amphet/D-Amphet 30 Mg Tablet, 30 MG PO BID, (Reported) Azithromycin 250 Mg Tablet, 250 MG PO DAILY Prescribed by: AISSATOU REDDY on 10/30/17 1240 Cefdinir 300 Mg Capsule, 300 MG PO BID Prescribed by: AISSATOU REDDY on 10/30/17 1240 Emtricitab/Rilpivirine/Tenofov 1 Each Tablet, 1 EACH PO DAILY, (Reported) Meclizine HCl 25 Mg Tablet, 25 MG PO TID PRN for DIZZINESS Prescribed by: AISSATOU REDDY on 10/18/18 1214 Oxycodone HCl/Acetaminophen 1 Each Tablet, 1 EACH PO Q6H PRN for PAIN Prescribed by: MUSHTAQ MAYO on 07/27/17 031 Oxycodone Hcl 60 Mg Tab.sr.12h, 60 MG PO BID, (Reported) Oxycodone Hcl/Acetaminophen 1 Each Tablet, 1 EACH PO Q6H Prescribed by: ERLINDA LANGFORD on 09/08/14 1557 Sulfamethoxazole/Trimethoprim 1 Each Tablet, 1 EACH PO BID Prescribed by: MUSHTAQ MAYO on 07/27/17 031 Patient Home Medication List Home Medication List Reviewed: Yes Review of Systems Review of Systems Constitutional: see HPI, malaise, weakness EENTM: see HPI Respiratory: no symptoms reported Cardiovascular: no symptoms reported Genitourinary: no symptoms reported Musculoskeletal: no symptoms reported Skin: no symptoms reported Psychiatric/Neurological: No Symptoms Reported Hematologic/Lymphatic: No Symptoms Reported Immunological/Allergic: no symptoms reported Past Dgyhnus-Pdodwa-Pqwbvs Hx Patient Social History Drug of Choice: COCAINE Meth smoked and IV Type Used: Cigarettes Former Smoker, Quit: Apr 07, 2017 2nd Hand Smoke Exposure: Yes Recent Hopitalizations: No Immunizations Up To Date Tetanus Booster (TDap): Less than 5yrs Date of Pneumonia Vaccine: Sep 28, 2012 Date of Influenza Vaccine: Jun 28, 2013 Seasonal Allergies Seasonal Allergies: No Past Medical History Surgeries: Yes (FX JAW) Appendectomy, Gallbladder Respiratory: Yes Pulmonary Fibrosis Cardiac: Yes Syncope Neurological: No HIV/AIDS: Yes Genitourinary: No Gastrointestinal: Yes (HEP C) Chronic Constipation, Hepatitis Musculoskeletal: No Fibromyalgia, Chronic Back Pain Endocrine: No HEENT: No Cancer: No Psychosocial: Yes ADD/ADHD, Anxiety, Depression Integumentary: Yes (HX HERPES) Blood Disorders: No Family Medical History Diabetes Physical Exam Vital Signs Vital Signs - First Documented 06/23/19 10:51 Temp 35.4 Pulse 67 Resp 16 B/P (MAP) 161/108 (125) Pulse Ox 100 O2 Delivery Room Air Capillary Refill : Height, Weight, BMI Height: 5'4.00" Weight: 150lbs. oz. 68.972043ct; 19.58 BMI Method:Estimated General Appearance: No Apparent Distress, WD/WN Eyes: Bilateral Eye Normal Inspection, Bilateral Eye PERRL, Bilateral Eye EOMI HEENT: PERRL/EOMI, TMs Normal, Other (pupils are pinpoint) Respiratory: No Accessory Muscle Use, No Respiratory Distress Gastrointestinal: Non Tender, Soft Extremity: Normal Capillary Refill, Normal Inspection Neurologic/Psychiatric: Alert, Oriented x3 Skin: Normal Color, Warm/Dry Procedures/Interventions Suture Size: 5-0 Progress/Results/Core Measures Suspected Sepsis SIRS Temperature: Pulse: Respiratory Rate: Laboratory Tests 06/23/19 10:54: White Blood Count 6.8 Blood Pressure / Mean: Laboratory Tests 06/23/19 10:54: Creatinine 0.85, Platelet Count 271, Total Bilirubin 0.5 Results/Orders Lab Results Laboratory Tests Test 06/23/19 10:54 06/23/19 11:40 Range/Units White Blood Count 6.8 4.3-11.0 10^3/uL Red Blood Count 5.59 4.35-5.85 10^6/uL Hemoglobin 12.7 L 13.3-17.7 G/DL Hematocrit 40 40-54 % Mean Corpuscular Volume 71 L 80-99 FL Mean Corpuscular Hemoglobin 23 L 25-34 PG Mean Corpuscular Hemoglobin Concent 32 32-36 G/DL Red Cell Distribution Width 15.0 H 10.0-14.5 % Platelet Count 271 130-400 10^3/uL Mean Platelet Volume 11.9 H 7.4-10.4 FL Neutrophils (%) (Auto) 54 42-75 % Lymphocytes (%) (Auto) 31 12-44 % Monocytes (%) (Auto) 13 H 0-12 % Eosinophils (%) (Auto) 1 0-10 % Basophils (%) (Auto) 1 0-10 % Neutrophils # (Auto) 3.7 1.8-7.8 X 10^3 Lymphocytes # (Auto) 2.1 1.0-4.0 X 10^3 Monocytes # (Auto) 0.9 0.0-1.0 X 10^3 Eosinophils # (Auto) 0.1 0.0-0.3 10^3/uL Basophils # (Auto) 0.1 0.0-0.1 10^3/uL Sodium Level 137 135-145 MMOL/L Potassium Level 4.2 3.6-5.0 MMOL/L Chloride Level 102 98-107 MMOL/L Carbon Dioxide Level 28 21-32 MMOL/L Anion Gap 7 5-14 MMOL/L Blood Urea Nitrogen 17 7-18 MG/DL Creatinine 0.85 0.60-1.30 MG/DL Estimat Glomerular Filtration Rate > 60 BUN/Creatinine Ratio 20 Glucose Level 110 H 70-105 MG/DL Calcium Level 9.2 8.5-10.1 MG/DL Corrected Calcium 9.0 8.5-10.1 MG/DL Total Bilirubin 0.5 0.1-1.0 MG/DL Aspartate Amino Transf (AST/SGOT) 51 H 5-34 U/L Alanine Aminotransferase (ALT/SGPT) 49 0-55 U/L Alkaline Phosphatase 88 40-136 U/L Total Protein 9.9 H 6.4-8.2 GM/DL Albumin 4.2 3.2-4.5 GM/DL Urine Color YELLOW Urine Clarity CLEAR Urine pH 7 5-9 Urine Specific Alvin 1.005 L 1.016-1.022 Urine Protein NEGATIVE NEGATIVE Urine Glucose (UA) NEGATIVE NEGATIVE Urine Ketones NEGATIVE NEGATIVE Urine Nitrite NEGATIVE NEGATIVE Urine Bilirubin NEGATIVE NEGATIVE Urine Urobilinogen NORMAL NORMAL MG/DL Urine Leukocyte Esterase NEGATIVE NEGATIVE Urine RBC (Auto) NEGATIVE NEGATIVE Urine RBC NONE /HPF Urine WBC RARE /HPF Urine Squamous Epithelial Cells 0-2 /HPF Urine Crystals NONE /LPF Urine Bacteria NEGATIVE /HPF Urine Casts NONE /LPF Urine Mucus NEGATIVE /LPF Urine Culture Indicated NO Urine Opiates Screen NEGATIVE NEGATIVE Urine Oxycodone Screen NEGATIVE NEGATIVE Urine Methadone Screen NEGATIVE NEGATIVE Urine Propoxyphene Screen NEGATIVE NEGATIVE Urine Barbiturates Screen NEGATIVE NEGATIVE Ur Tricyclic Antidepressants Screen NEGATIVE NEGATIVE Urine Phencyclidine Screen NEGATIVE NEGATIVE Urine Amphetamines Screen NEGATIVE NEGATIVE Urine Methamphetamines Screen NEGATIVE NEGATIVE Urine Benzodiazepines Screen NEGATIVE NEGATIVE Urine Cocaine Screen NEGATIVE NEGATIVE Urine Cannabinoids Screen NEGATIVE NEGATIVE My Orders Orders - AISSATOU REDDY APRN Cbc With Automated Diff (06/23/19 10:53) Comprehensive Metabolic Panel (06/23/19 10:53) Ua Culture If Indicated (06/23/19 10:53) Drug Screen Stat (Urine) (06/23/19 10:53) Meclizine Tablet (Antivert Tablet) (06/23/19 11:00) General/Regular (06/23/19 Lunch) Ns Iv 1000 Ml (Sodium Chloride 0.9%) (06/23/19 11:15) Ed Iv/Invasive Line Start (06/23/19 11:01) T [place] Cd4 Cells (06/23/19 11:14) Medications Given in ED Current Medications Medications Dose Ordered Sig/Marcela Route Start Time Stop Time Status Last Admin Dose Admin Meclizine HCl 25 mg ONCE ONCE PO 06/23/19 11:00 06/23/19 11:01 DC 06/23/19 11:12 25 MG Vital Signs/I&O 06/23/19 10:51 Temp 35.4 Pulse 67 Resp 16 B/P (MAP) 161/108 (125) Pulse Ox 100 O2 Delivery Room Air Capillary Refill : Departure Impression Primary Impression: Fatigue Qualified Codes: R53.83 - Other fatigue Additional Impression: Dizziness Disposition: 01 HOME, SELF-CARE Condition: Stable Departure-Patient Inst. Decision time for Depature: 12:02 Referrals: TYRESE DAVISON MD (PCP/Family) Primary Care Physician Patient Instructions: NO INSTRUCTIONS GIVEN AISSATOU REDDY APRN Jun 23, 2019 10:57
[2019-06-23] MEDS ORDERED: MECLIZINE 25 MG (ANTIVERT) TAB PO ONE (11:00)
[2019-06-23 11:10] LABS: BASOPHILS # (AUTO) 0.1 10^3/uL (0.0-0.1); BASOPHILS % (AUTO) 1 % (0-10); EOSINOPHILS # (AUTO) 0.1 10^3/uL (0.0-0.3); EOSINOPHILS % (AUTO) 1 % (0-10); HEMATOCRIT 40 % (40-54); HEMOGLOBIN 12.7 G/DL (13.3-17.7); LYMPHOCYTES # (AUTO) 2.1 X 10^3 (1.0-4.0); LYMPHOCYTES % (AUTO) 31 % (12-44); MEAN CORPUSCULAR HEMOGLOBIN 23 PG (25-34); MEAN CORPUSCULAR HGB CONC 32 G/DL (32-36); MEAN CORPUSCULAR VOLUME 71 FL (80-99); MEAN PLATELET VOLUME 11.9 FL (7.4-10.4); MONOCYTES # (AUTO) 0.9 X 10^3 (0.0-1.0); MONOCYTES % (AUTO) 13 % (0-12); NEUTROPHILS # (AUTO) 3.7 X 10^3 (1.8-7.8); NEUTROPHILS % (AUTO) 54 % (42-75); PLATELET COUNT 271 10^3/uL (130-400); WHITE BLOOD COUNT 6.8 10^3/uL (4.3-11.0)
[2019-06-23] MEDS ORDERED: NS IV 1000 ML 1,000 ML IV SCH (11:15)
[2019-06-23 11:28] LABS: ALANINE AMINOTRANSFERASE 49 U/L (0-55); ALBUMIN 4.2 GM/DL (3.2-4.5); ALKALINE PHOSPHATASE 88 U/L (40-136); BILIRUBIN,TOTAL 0.5 MG/DL (0.1-1.0); BUN/CREATININE RATIO 20; CALCIUM 9.2 MG/DL (8.5-10.1); CARBON DIOXIDE 28 MMOL/L (21-32); CHLORIDE 102 MMOL/L (98-107); CREATININE SERUM 0.85 MG/DL (0.60-1.30); GFR ESTIMATED > 60; GLUCOSE 110 MG/DL (70-105); POTASSIUM 4.2 MMOL/L (3.6-5.0); SODIUM 137 MMOL/L (135-145); TOTAL PROTEIN 9.9 GM/DL (6.4-8.2)
[2019-06-23 11:54] LABS: BACTERIA,URINE NEGATIVE /HPF; BILIRUBIN,URINE NEGATIVE (NEGATIVE); CLARITY,URINE CLEAR; COLOR,URINE YELLOW; GLUCOSE, URINE (UA) NEGATIVE (NEGATIVE); KETONES,URINE NEGATIVE (NEGATIVE); LEUKOCYTE ESTERASE ,URINE NEGATIVE (NEGATIVE); NITRITE,URINE NEGATIVE (NEGATIVE); PH,URINE 7 (5-9); PROTEIN,URINE NEGATIVE (NEGATIVE); SQUAMOUS EPITHELIAL CELL,UR 0-2 /HPF; UROBILINOGEN,URINE NORMAL (NORMAL); WBC,URINE RARE /HPF
[2019-06-23 11:59] LABS: AMPHETAMINE SCREEN, URINE NEGATIVE (NEGATIVE); BARBITURATE SCREEN URINE NEGATIVE (NEGATIVE); BENZODIAZEPINES SCREEN URINE NEGATIVE (NEGATIVE); CANNABINOID SCREEN, URINE NEGATIVE (NEGATIVE); COCAINE SCREEN URINE NEGATIVE (NEGATIVE); METHADONE STAT NEGATIVE (NEGATIVE); METHAMPHETAMINE SCREEN URINE S NEGATIVE (NEGATIVE); OPIATE SCREEN URINE NEGATIVE (NEGATIVE); OXYCODONE STAT NEGATIVE (NEGATIVE); PROPOXYPHENE STAT NEGATIVE (NEGATIVE); TRICYCLIC ANTIDEPRESSANTS SCRE NEGATIVE (NEGATIVE)
[2019-06-23 12:39] VITALS: BP 155/95
== END 2019-06-23 12:39 | disposition home or self-care (01) ==
LOC: EDUNIT# 10:34 → ER 10:35
DX: R53.83 Other fatigue (principal); R42 Dizziness and giddiness; B19.20 Unspecified viral hepatitis C without hepatic coma; M79.7 Fibromyalgia; F90.9 Attention-deficit hyperactivity disorder, unspecified type; F41.9 Anxiety disorder, unspecified; F32.9 Major depressive disorder, single episode, unspecified; Z87.09 Personal history of other diseases of the respiratory system; Z21 Asymptomatic human immunodeficiency virus [HIV] infection status; Z88.5 Allergy status to narcotic agent; Z87.891 Personal history of nicotine dependence; Z77.22 Contact with and (suspected) exposure to environmental tobacco smoke (acute) (chronic); Z90.49 Acquired absence of other specified parts of digestive tract
CPT/HCPCS: 36415; 80053; 80306; 81000; 85025; 86361

== ENCOUNTER 2019-07-22 13:33 | Emergency (ER) | payer MEDICARE ==
[~2019-07-22] VITALS: Ht 170 cm; Wt 52.9 kg
[2019-07-22] MEDS ORDERED: CEPH500T PO (13:44)
[2019-07-22] MEDS ORDERED: SULF1TAB35 PO (13:44)
--- NOTE | 2019-07-22 13:44 | ED Integumentary General ---
General Chief Complaint: Skin/Wound Problems Stated Complaint: R FINGER INFECTION Source: patient Exam Limitations: no limitations History of Present Illness Date Seen by Provider: Jul 22, 2019 Time Seen by Provider: 13:40 Initial Comments Patient is to the right middle finger days. Been picking at it. It is now firm and red. He is HIV-positive noncompliant with any treatments. Timing/Duration: constant, getting worse Severity: moderate Associated Symptoms: denies symptoms Allergies and Home Medications Allergies Coded Allergies: codeine (Verified Allergy, Unknown, 01/18/16) hydrocodone (Verified Allergy, Unknown, 01/18/16) Home Medications Alprazolam 2 Mg Tablet, 2 MG PO HS, (Reported) Amphet Asp/Amphet/D-Amphet 30 Mg Tablet, 30 MG PO BID, (Reported) Azithromycin 250 Mg Tablet, 250 MG PO DAILY Prescribed by: AISSATOU REDDY on 10/30/17 1240 Cefdinir 300 Mg Capsule, 300 MG PO BID Prescribed by: AISSATOU REDDY on 10/30/17 1240 Emtricitab/Rilpivirine/Tenofov 1 Each Tablet, 1 EACH PO DAILY, (Reported) Meclizine HCl 25 Mg Tablet, 25 MG PO TID PRN for DIZZINESS Prescribed by: AISSATOU REDDY on 10/18/18 1214 Oxycodone HCl/Acetaminophen 1 Each Tablet, 1 EACH PO Q6H PRN for PAIN Prescribed by: MUSHTAQ MAYO on 07/27/17 031 Oxycodone Hcl 60 Mg Tab.sr.12h, 60 MG PO BID, (Reported) Oxycodone Hcl/Acetaminophen 1 Each Tablet, 1 EACH PO Q6H Prescribed by: ERLINDA LANGFORD on 09/08/14 1557 Sulfamethoxazole/Trimethoprim 1 Each Tablet, 1 EACH PO BID Prescribed by: MUSHTAQ MAYO on 07/27/17 031 Patient Home Medication List Home Medication List Reviewed: Yes Review of Systems Review of Systems Constitutional: see HPI EENTM: see HPI Respiratory: no symptoms reported Cardiovascular: no symptoms reported Genitourinary: no symptoms reported Musculoskeletal: no symptoms reported Skin: see HPI Psychiatric/Neurological: No Symptoms Reported Endocrine: No Symptoms Reported Hematologic/Lymphatic: No Symptoms Reported Past Hknwsyc-Lyqxdf-Mrgrtu Hx Patient Social History Drug of Choice: COCAINE Meth smoked and IV Type Used: Cigarettes Former Smoker, Quit: Apr 07, 2017 2nd Hand Smoke Exposure: Yes Recent Foreign Travel: No Contact w/Someone Who Travel: No Recent Hopitalizations: No Immunizations Up To Date Tetanus Booster (TDap): Less than 5yrs Date of Pneumonia Vaccine: Sep 28, 2012 Date of Influenza Vaccine: Jun 28, 2013 Seasonal Allergies Seasonal Allergies: No Past Medical History Surgeries: Yes (FX JAW) Appendectomy, Gallbladder Respiratory: Yes Pulmonary Fibrosis Cardiac: Yes Syncope Neurological: No HIV/AIDS: Yes Genitourinary: No Gastrointestinal: Yes (HEP C) Chronic Constipation, Hepatitis Musculoskeletal: No Fibromyalgia, Chronic Back Pain Endocrine: No HEENT: No Cancer: No Psychosocial: Yes ADD/ADHD, Anxiety, Depression Integumentary: Yes (HX HERPES) Blood Disorders: No Family Medical History Diabetes Physical Exam Vital Signs Capillary Refill : General Appearance: WD/WN, no apparent distress HEENT: PERRL/EOMI, normal ENT inspection Respiratory: no respiratory distress, no accessory muscle use Neurologic/Psychiatric: alert, normal mood/affect, oriented x 3 Skin: normal color, warm/dry Skin Problem Character: other (erythema to the very tip of the fingernail which appears to been chewed on. There is no fluctuance to any part of this to suggest abscess, this is around the distal tip of the nailbed, not a felon. No air-fluid level or bubbles seen beneath the nail to suggest a subungual abscess either.) Procedures/Interventions Suture Size: 5-0 Progress/Results/Core Measures Results/Orders My Orders Orders - AISSATOU REDDY APRN General/Regular (07/22/19 Dinner) Departure Impression Primary Impression: Paronychia Disposition: 01 HOME, SELF-CARE Condition: Stable Departure-Patient Inst. Decision time for Depature: 13:42 Referrals: NO,LOCAL PHYSICIAN (PCP/Family) Primary Care Physician Patient Instructions: Paronychia Add. Discharge Instructions: 1. You must fill the antibiotics. Take them. All discharge instructions reviewed with patient and/or family. Voiced understanding. Scripts Sulfamethoxazole/Trimethoprim (Bactrim Ds Tablet) 1 Each Tablet 1 EACH PO BID, #14 TAB Prov: AISSATOU REDDY APRN 07/22/19 Cephalexin (Cephalexin) 500 Mg Tablet 500 MG PO QID, #28 TAB 0 Refills Prov: AISSATOU REDDY APRN 07/22/19 AISSATOU REDDY APRN Jul 22, 2019 13:44
[2019-07-22] MEDS ORDERED: LIDOCAINE 1% INJ 20 ML 20 ML VIAL INJ ONE (13:45)
[2019-07-22] MEDS ORDERED: cefTRIAXone 1,000 MG/2.86 ml vial (IM ONLY) IM SCH (13:45)
[2019-07-22 14:08] VITALS: BP 131/85
== END 2019-07-22 14:16 | disposition home or self-care (01) ==
LOC: EDUNIT# 13:33 → ER 13:34
DX: L03.011 Cellulitis of right finger (principal); B19.20 Unspecified viral hepatitis C without hepatic coma; M79.7 Fibromyalgia; F90.9 Attention-deficit hyperactivity disorder, unspecified type; F41.9 Anxiety disorder, unspecified; F32.9 Major depressive disorder, single episode, unspecified; Z21 Asymptomatic human immunodeficiency virus [HIV] infection status; Z91.19 Patient's noncompliance with other medical treatment and regimen; Z88.5 Allergy status to narcotic agent; Z87.891 Personal history of nicotine dependence; Z77.22 Contact with and (suspected) exposure to environmental tobacco smoke (acute) (chronic); Z90.49 Acquired absence of other specified parts of digestive tract
CPT/HCPCS: 96372; 99284

== ENCOUNTER 2020-12-07 18:24 | Emergency (ER) | payer MEDICARE ==
[~2020-12-07] VITALS: Ht 170.2 cm; Wt 54.4 kg
[~2020-12-07 18:24] MED LIST changes: +CEPH500T PO; -MECL-106 PO; +MECL-149 PO; -OXYC-471 PO; +OXYC1TAB11 PO
[2020-12-07 18:48] LABS: BASOPHILS # (AUTO) 0.1 10^3/uL (0.0-0.1); BASOPHILS % (AUTO) 1 % (0-10); EOSINOPHILS # (AUTO) 0.1 10^3/uL (0.0-0.3); EOSINOPHILS % (AUTO) 1 % (0-10); HEMATOCRIT 40 % (40-54); HEMOGLOBIN 12.2 g/dL (13.3-17.7); LYMPHOCYTES # (AUTO) 1.8 10^3/uL (1.0-4.0); LYMPHOCYTES % (AUTO) 30 % (12-44); MEAN CORPUSCULAR HEMOGLOBIN 23 pg (25-34); MEAN CORPUSCULAR HGB CONC 31 g/dL (32-36); MEAN CORPUSCULAR VOLUME 75 fL (80-99); MEAN PLATELET VOLUME 11.8 fL (9.0-12.2); MONOCYTES % (AUTO) 17 % (0-12); NEUTROPHILS # (AUTO) 3.1 10^3/uL (1.8-7.8); NEUTROPHILS % (AUTO) 51 % (42-75); PLATELET COUNT 294 10^3/uL (130-400); WHITE BLOOD COUNT 6.1 10^3/uL (4.3-11.0)
[2020-12-07 18:53] LABS: ALBUMIN 3.6 GM/DL (3.2-4.5)
[2020-12-07 18:54] LABS: CHLORIDE 102 MMOL/L (98-107); POTASSIUM 3.8 MMOL/L (3.6-5.0); SODIUM 138 MMOL/L (135-145)
[2020-12-07 18:55] LABS: CALCIUM 8.7 MG/DL (8.5-10.1)
[2020-12-07 18:56] LABS: GLUCOSE 87 MG/DL (70-105); TOTAL PROTEIN 8.3 GM/DL (6.4-8.2)
[2020-12-07 18:57] LABS: CARBON DIOXIDE 27 MMOL/L (21-32)
[2020-12-07 18:58] LABS: BILIRUBIN,TOTAL 0.6 MG/DL (0.1-1.0)
[2020-12-07 18:59] LABS: ALKALINE PHOSPHATASE 67 U/L (40-136)
[2020-12-07 19:00] LABS: GFR ESTIMATED > 60
[2020-12-07] MEDS ORDERED: ONDANSETRON 4 MG/2 ML (SDV) Z0FRAN IVP ONE (19:00)
[2020-12-07] MEDS ORDERED: fentaNYL INJ 100 MCG/2 ML AMP IVP ONE ×2 (19:00→20:30)
[2020-12-07 19:01] LABS: BUN/CREATININE RATIO 21
--- NOTE | 2020-12-07 19:01 | ED Abdominal Pain ---
General Chief Complaint: Rect Problems Stated Complaint: VOMITING BLOOD Nursing Triage Note: PT TO ROOM 5 VIA EMS. PT WALKED FROM AMBULANCE BAY TO ROOM. PT C/O RECTAL BLEEDING X3 DAYS. PT REPORT HE HAS NOT TAKEN HIS HIV MEDS X1 WEEK. PT REPORTS HE HAS NOT EATEN X4-5 DAYS. Sepsis Screen: No Definite Risk Source of Information: Patient Exam Limitations: No Limitations History of Present Illness Date Seen by Provider: Dec 07, 2020 Time Seen by Provider: 18:49 Initial Comments This is a chronically ill 55-year-old male who presents to the ER with complaints of rectal bleeding and vomiting blood x2 weeks. States he has a history of HIV and has stopped taking his HIV medications a week ago. Has not been able to eat or drink anything for the past 4 days due to abdominal pain and vomiting after intake. 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 But states that this is not the case this evening. States he used methamphetamine last 4 months ago and has not placed anything in his rectum this time. Currently complaining of mid abdominal pain, rates 9/10 and associated with nausea. Denies fevers, chills, chest pain, shortness of breath, cough, dysuria, hematuria. Allergies and Home Medications Allergies Coded Allergies: codeine (Verified Allergy, Unknown, 01/18/16) hydrocodone (Verified Allergy, Unknown, 01/18/16) Home Medications Alprazolam 2 Mg Tablet, 2 MG PO HS, (Reported) Amphet Asp/Amphet/D-Amphet 30 Mg Tablet, 30 MG PO BID, (Reported) Azithromycin 250 Mg Tablet, 250 MG PO DAILY Prescribed by: AISSATOU REDDY on 10/30/17 1240 Cefdinir 300 Mg Capsule, 300 MG PO BID Prescribed by: AISSATOU REDDY on 10/30/17 1240 Cephalexin 500 Mg Tablet, 500 MG PO QID Prescribed by: AISSATOU REDDY on 07/22/19 1344 Emtricitab/Rilpivirine/Tenofov 1 Each Tablet, 1 EACH PO DAILY, (Reported) Meclizine HCl 25 Mg Tablet, 25 MG PO TID PRN for DIZZINESS Prescribed by: AISSATOU REDDY on 10/18/18 1214 Ondansetron 4 Mg Tab.rapdis, 4 MG PO Q6H PRN for NAUSEA/VOMITING Prescribed by: GERRI SHAH on 12/07/202113 Oxycodone HCl/Acetaminophen 1 Each Tablet, 1 EACH PO Q6H PRN for PAIN Prescribed by: MUSHTAQ MAYO on 07/27/17309 Oxycodone Hcl 60 Mg Tab.sr.12h, 60 MG PO BID, (Reported) Oxycodone Hcl/Acetaminophen 1 Each Tablet, 1 EACH PO Q6H Prescribed by: ERLINDA LANGFORD on 09/08/14 1557 Sulfamethoxazole/Trimethoprim 1 Each Tablet, 1 EACH PO BID Prescribed by: MUSHTAQ MAYO on 07/27/17309 Sulfamethoxazole/Trimethoprim 1 Each Tablet, 1 EACH PO BID Prescribed by: AISSATOU REDDY on 07/22/19 1344 Patient Home Medication List Home Medication List Reviewed: Yes Review of Systems Review of Systems Constitutional: no symptoms reported EENTM: No Symptoms Reported Respiratory: No Symptoms Reported Cardiovascular: No Symptoms Reported Gastrointestinal: See HPI Genitourinary: No Symptoms Reported Musculoskeletal: no symptoms reported Skin: no symptoms reported Psychiatric/Neurological: No Symptoms Reported Endocrine: No Symptoms Reported Hematologic/Lymphatic: See HPI Past Fqbbejv-Mikkyu-Hiyagd Hx Patient Social History Alcohol Use: Denies Use Drug of Choice: COCAINE Meth smoked and IV Smoking Status: Former Smoker Type Used: Cigarettes Former Smoker, Quit: Apr 07, 2017 2nd Hand Smoke Exposure: Yes Recent Infectious Disease Expo: No Recent Hopitalizations: No Immunizations Up To Date Tetanus Booster (TDap): Less than 5yrs Date of Pneumonia Vaccine: Sep 28, 2012 Date of Influenza Vaccine: Jun 28, 2013 Seasonal Allergies Seasonal Allergies: No Past Medical History Surgeries: Yes (FX JAW) Appendectomy, Gallbladder Respiratory: Yes Pulmonary Fibrosis Cardiac: Yes Syncope Neurological: No HIV/AIDS: Yes Genitourinary: No Gastrointestinal: Yes (HEP C) Chronic Constipation, Hepatitis Musculoskeletal: No Fibromyalgia, Chronic Back Pain Endocrine: No HEENT: No Cancer: No Psychosocial: Yes ADD/ADHD, Anxiety, Depression Integumentary: Yes (HX HERPES) Blood Disorders: No Family Medical History Diabetes Physical Exam Vital Signs Vital Signs - First Documented 12/07/20 12/07/20 18:46 21:23 Temp 36.0 Pulse 89 Resp 16 B/P (MAP) 152/82 (105) Pulse Ox 99 O2 Delivery Room Air Capillary Refill : Less Than 3 Seconds Height/Weight/BMI Height: 5'4.00" Weight: 150lbs. oz. 68.521423ct; 18.00 BMI Method:Estimated General Appearance: WD/WN, no apparent distress HEENT: PERRL/EOMI, normal ENT inspection Neck: full range of motion, normal inspection Respiratory: lungs clear, normal breath sounds, no respiratory distress Cardiovascular: regular rate, rhythm, no murmur Gastrointestinal: normal bowel sounds, non tender, soft Rectal: deferred (declined ) Extremities: normal range of motion, non-tender, normal inspection Back: normal inspection, no vertebral tenderness Neurologic/Psychiatric: no motor/sensory deficits, alert, normal mood/affect, oriented x 3 Skin: normal color, warm/dry Procedures/Interventions Suture Size: 5-0 Progress/Results/Core Measures Results/Orders Lab Results Laboratory Tests Test 12/07/20 18:34 12/07/20 19:00 Range/Units White Blood Count 6.1 4.3-11.0 10^3/uL Red Blood Count 5.29 4.30-5.52 10^6/uL Hemoglobin 12.2 L 13.3-17.7 g/dL Hematocrit 40 40-54 % Mean Corpuscular Volume 75 L 80-99 fL Mean Corpuscular Hemoglobin 23 L 25-34 pg Mean Corpuscular Hemoglobin Concent 31 L 32-36 g/dL Red Cell Distribution Width 14.5 10.0-14.5 % Platelet Count 294 130-400 10^3/uL Mean Platelet Volume 11.8 9.0-12.2 fL Immature Granulocyte % (Auto) 0 % Neutrophils (%) (Auto) 51 42-75 % Lymphocytes (%) (Auto) 30 12-44 % Monocytes (%) (Auto) 17 H 0-12 % Eosinophils (%) (Auto) 1 0-10 % Basophils (%) (Auto) 1 0-10 % Neutrophils # (Auto) 3.1 1.8-7.8 10^3/uL Lymphocytes # (Auto) 1.8 1.0-4.0 10^3/uL Monocytes # (Auto) 1.0 0.0-1.0 10^3/uL Eosinophils # (Auto) 0.1 0.0-0.3 10^3/uL Basophils # (Auto) 0.1 0.0-0.1 10^3/uL Immature Granulocyte # (Auto) 0.0 0.0-0.1 10^3/uL Sodium Level 138 135-145 MMOL/L Potassium Level 3.8 3.6-5.0 MMOL/L Chloride Level 102 98-107 MMOL/L Carbon Dioxide Level 27 21-32 MMOL/L Anion Gap 9 5-14 MMOL/L Blood Urea Nitrogen 17 7-18 MG/DL Creatinine 0.80 0.60-1.30 MG/DL Estimat Glomerular Filtration Rate > 60 BUN/Creatinine Ratio 21 Glucose Level 87 70-105 MG/DL Calcium Level 8.7 8.5-10.1 MG/DL Corrected Calcium 9.0 8.5-10.1 MG/DL Total Bilirubin 0.6 0.1-1.0 MG/DL Aspartate Amino Transf (AST/SGOT) 41 H 5-34 U/L Alanine Aminotransferase (ALT/SGPT) 38 0-55 U/L Alkaline Phosphatase 67 40-136 U/L Total Protein 8.3 H 6.4-8.2 GM/DL Albumin 3.6 3.2-4.5 GM/DL Lipase 134 H 8-78 U/L Urine Color YELLOW Urine Clarity CLEAR Urine pH 7.0 5-9 Urine Specific Iselin 1.020 1.016-1.022 Urine Protein TRACE H NEGATIVE Urine Glucose (UA) NEGATIVE NEGATIVE Urine Ketones NEGATIVE NEGATIVE Urine Nitrite NEGATIVE NEGATIVE Urine Bilirubin NEGATIVE NEGATIVE Urine Urobilinogen 4.0 < = 1.0 MG/DL Urine Leukocyte Esterase NEGATIVE NEGATIVE Urine RBC (Auto) NEGATIVE NEGATIVE Urine RBC NONE /HPF Urine WBC NONE /HPF Urine Squamous Epithelial Cells RARE /HPF Urine Crystals NONE /LPF Urine Bacteria TRACE /HPF Urine Casts NONE /LPF Urine Mucus SMALL H /LPF Urine Culture Indicated NO Urine Opiates Screen NEGATIVE NEGATIVE Urine Oxycodone Screen NEGATIVE NEGATIVE Urine Methadone Screen NEGATIVE NEGATIVE Urine Propoxyphene Screen NEGATIVE NEGATIVE Urine Barbiturates Screen NEGATIVE NEGATIVE Ur Tricyclic Antidepressants Screen NEGATIVE NEGATIVE Urine Phencyclidine Screen NEGATIVE NEGATIVE Urine Amphetamines Screen POSITIVE H NEGATIVE Urine Methamphetamines Screen POSITIVE H NEGATIVE Urine Benzodiazepines Screen NEGATIVE NEGATIVE Urine Cocaine Screen NEGATIVE NEGATIVE Urine Cannabinoids Screen NEGATIVE NEGATIVE My Orders Orders - GERRI SHAH MIXED ANIMAL VETERINARIAN Cbc With Automated Diff (12/07/20 18:37) Comprehensive Metabolic Panel (12/07/20 18:37) Ed Iv/Invasive Line Start (12/07/20 18:37) Ua Culture If Indicated (12/07/20 18:37) Drug Screen Stat (Urine) (12/07/20 18:44) Lipase (12/07/20 18:58) Ct Abdomen/Pelvis W (12/07/20 18:58) Fentanyl Injection (Sublimaze Injection (12/07/20 19:00) Ondansetron Injection (Zofran Injectio (12/07/20 19:00) Iohexol Injection (Omnipaque 350 Mg/Ml 1 (12/07/20 19:15) Received Contrast (Hold Metformin- Contr (12/07/20 19:15) Ns (Ivpb) (Sodium Chloride 0.9% Ivpb Bag (12/07/20 19:15) Occult Blood Stool (12/07/20 19:13) Lactated Ringers (Lr 1000 Ml Iv Solution (12/07/20 20:30) Fentanyl Injection (Sublimaze Injection (12/07/20 20:30) Famotidine Injection (Pepcid Injection) (12/07/20 20:45) Medications Given in ED Current Medications Medications Dose Ordered Sig/Marcela Route Start Time Stop Time Status Last Admin Dose Admin Famotidine 20 mg ONCE ONCE IVP 12/07/20 20:45 12/07/20 20:46 DC 12/07/20 20:43 20 MG Fentanyl Citrate 50 mcg ONCE ONCE IVP 12/07/20 19:00 12/07/20 19:01 DC 12/07/20 19:14 50 MCG Fentanyl Citrate 50 mcg ONCE ONCE IVP 12/07/20 20:30 12/07/20 20:31 DC 12/07/20 20:44 50 MCG Iohexol 100 ml ONCE ONCE IV 12/07/20 19:15 12/07/20 19:16 DC 12/07/20 19:32 100 ML Lactated Ringer's 1,000 ml @ 0 mls/hr Q0M ONCE IV 12/07/20 20:30 12/07/20 20:31 DC 12/07/20 20:43 999 MLS/HR Ondansetron HCl 4 mg ONCE ONCE IVP 12/07/20 19:00 12/07/20 19:01 DC 12/07/20 19:13 4 MG Sodium Chloride 100 ml ONCE ONCE IV 12/07/20 19:15 12/07/20 19:16 DC 12/07/20 19:32 80 ML Vital Signs/I&O 12/07/20 12/07/20 18:46 21:23 Temp 36.0 Pulse 89 81 Resp 16 16 B/P (MAP) 152/82 (105) 124/66 Pulse Ox 99 O2 Delivery Room Air Room Air Blood Pressure Mean: 105 Progress Progress Note : Progress Note Patient examined and in no acute distress. Abdomen is soft. Vital signs are stable. Orders placed for basic labs and CT abdomen pelvis with contrast. Majority of his pain is in his epigastric region, lipase ordered to evaluate for pancreatitis. Denies any history of alcohol use, but he does admit to injecting methamphetamine. States he did not put anything in his rectum and declined to have provider evaluate. Reports he travels back and forth from [place] to this region and is currently homeless. He is very unreliable historian. Labs reviewed, hemoglobin stable at 12.2. Lipase noted to be elevated-134. He was also noted to be positive for methamphetamines and amphetamines. CT abdomen pelvis shows mild inflammatory changes of pancreatitis. This is likely the root of his symptoms. He did not vomit any blood in ED nor did he have any bloody stools. Orders placed for Pepcid, as Pantaprazole interacts with his HIV medications. Discussed case with Dr. Mckeon with surgery, recommended outpatient follow-up for medical management as he does not require any surgical intervention at this time. Orders placed for 1 L of LR, and fentanyl 50 mcg IV push, he was noted to be sleeping peacefully when I returned to room to discuss lab results. Discussed findings of drug screen, states he last used methamphetamines a week and half ago. Discussed establishing with primary care provider in the [facility] if he is staying in this area, agreeable with this. Provided list of local providers. Reviewed discharge plan of care at this time and he is agreeable with plan. Pain markedly improved. Diagnostic Imaging Diagonstic Imaging: CT Plain Films/CT/US/NM/MRI: abdomen, pelvis Comments NAME: KIMBERLY RIVERO MED REC#: [id number] PT STATUS: REG ER : 1965 PHYSICIAN: GERRI SHAH MIXED ANIMAL VETERINARIAN ADMIT DATE: 12/07/20/ER Signed Date of Exam:12/07/20 CT ABDOMEN/PELVIS W PROCEDURE: CT abdomen and pelvis with contrast. TECHNIQUE: Multiple contiguous axial images were obtained through the abdomen and pelvis after administration of intravenous contrast. Auto Exposure Controls were utilized during the CT exam to meet ALARA standards for radiation dose reduction. All CT scans use one or more of the following dose optimizing techniques: automated exposure control, MA and/or KvP adjustment based on patient size and exam type or iterative reconstruction. INDICATION: Mid abdominal pain, rectal bleeding, pelvic pain. CORRELATION STUDY: 10/18/2018 FINDINGS: LOWER THORAX: Partial visualization of a questionable nodular density lateral left lung base measures at least 12 mm. Advanced emphysematous change about the lung bases, left greater than right are present. Heart size borderline enlarged. Wall thickening at the level of the gastroesophageal junction. LIVER: Heterogeneous attenuation. No definitive focal lesion. GALLBLADDER: Cholecystectomy. SPLEEN: Unremarkable. PANCREAS: Mildly enlarged but without definitive inflammatory change. ADRENAL GLANDS: Unremarkable. KIDNEYS: Normal configuration. No calcification or obstruction. ABDOMINAL AORTA: Unremarkable, nonaneurysmal. GASTROINTESTINAL TRACT: Stomach with retained fluid and gastric contents. Questionable wall thickening of the pylorus. No small bowel obstruction. Moderate stool through the colon. Likely partial visualization of the appendix which appears unremarkable. URINARY BLADDER: Decompressed. REPRODUCTIVE: Unremarkable. OSSEOUS STRUCTURES: A few scattered small sclerotic bone islands present. OTHER: None. IMPRESSION: 1. No definitive evidence for rectal bleeding. Moderate severity stool retention throughout the colon. No obstruction. 2. Questionable wall thickening at the gastroesophageal junction. Correlation for symptoms. Dictated by: Dictated on workstation # [id number] Dict: 12/07/20 1938 Trans: 12/07/202004 REGINA [id number] Interpreted by: SUSAN HERNANDEZ DO Electronically signed by: SUSAN HERNANDEZ DO 12/07/202004 Reviewed: Reviewed by Ak Departure Communication (Admissions) Time/Spoke to Consulting Phy: 20:[address] Mckeon. Impression Primary Impression: Acute inflammation of the pancreas Disposition: HOME, SELF-CARE Condition: Improved Departure-Patient Inst. Decision time for Depature: 21:11 Referrals: NO,LOCAL PHYSICIAN (PCP/Family) Primary Care Physician Patient Instructions: LOCAL PHYSICIAN LIST, Pancreatitis Add. Discharge Instructions: Plan: 1. Discharge home. 2. Take Pepcid 20mg by mouth twice daily. 3. STOP USING METH. 4. Drink clear liquids for the next 24-48 hours to reduce symptoms. 5. May take Zofran 4mg by mouth every 6 hours as needed for nausea. 6. Follow up with local provider. See list. 7. Return to ER for any new or concerning symptoms. All discharge instructions reviewed with patient and/or family. Voiced understanding. Scripts Ondansetron (Ondansetron Odt) 4 Mg Tab.rapdis 4 MG PO Q6H PRN for NAUSEA/VOMITING, #30 TAB 0 Refills Prov: GERRI SHAH MIXED ANIMAL VETERINARIAN 12/07/20 GERRI SHAH MIXED ANIMAL VETERINARIAN Dec 07, 2020 19:01
[2020-12-07 19:02] LABS: ALANINE AMINOTRANSFERASE 38 U/L (0-55)
[2020-12-07 19:11] LABS: BILIRUBIN,URINE NEGATIVE (NEGATIVE); CLARITY,URINE CLEAR; COLOR,URINE YELLOW; GLUCOSE, URINE (UA) NEGATIVE (NEGATIVE); KETONES,URINE NEGATIVE (NEGATIVE); LEUKOCYTE ESTERASE ,URINE NEGATIVE (NEGATIVE); NITRITE,URINE NEGATIVE (NEGATIVE); PROTEIN,URINE TRACE (NEGATIVE)
[2020-12-07] MEDS ORDERED: IOHEXOL 350 MG/ML 100 ML (OMNIPAQUE 350) VIAL IV ONE (19:15)
[2020-12-07] MEDS ORDERED: NS 100 ML (IVPB) BAG IV ONE (19:15)
[2020-12-07] MEDS ORDERED: HOLD METFORMIN - RECEIVED CONTRAST 20 ML VIAL IV SCH (19:15)
[2020-12-07 19:17] LABS: BACTERIA,URINE TRACE /HPF; SQUAMOUS EPITHELIAL CELL,UR RARE /HPF
[2020-12-07 19:21] LABS: AMPHETAMINE SCREEN, URINE POSITIVE (NEGATIVE); BARBITURATE SCREEN URINE NEGATIVE (NEGATIVE); BENZODIAZEPINES SCREEN URINE NEGATIVE (NEGATIVE); CANNABINOID SCREEN, URINE NEGATIVE (NEGATIVE); COCAINE SCREEN URINE NEGATIVE (NEGATIVE); METHADONE STAT NEGATIVE (NEGATIVE); METHAMPHETAMINE SCREEN URINE S POSITIVE (NEGATIVE); OPIATE SCREEN URINE NEGATIVE (NEGATIVE); OXYCODONE STAT NEGATIVE (NEGATIVE); PROPOXYPHENE STAT NEGATIVE (NEGATIVE); TRICYCLIC ANTIDEPRESSANTS SCRE NEGATIVE (NEGATIVE)
--- NOTE | 2020-12-07 20:05 | Diagnostic Imaging Report ---
PROCEDURE: CT abdomen and pelvis with contrast. TECHNIQUE: Multiple contiguous axial images were obtained through the abdomen and pelvis after administration of intravenous contrast. Auto Exposure Controls were utilized during the CT exam to meet ALARA standards for radiation dose reduction. All CT scans use one or more of the following dose optimizing techniques: automated exposure control, MA and/or KvP adjustment based on patient size and exam type or iterative reconstruction. INDICATION: Mid abdominal pain, rectal bleeding, pelvic pain. CORRELATION STUDY: 10/18/2018 FINDINGS: LOWER THORAX: Partial visualization of a questionable nodular density lateral left lung base measures at least 12 mm. Advanced emphysematous change about the lung bases, left greater than right are present. Heart size borderline enlarged. Wall thickening at the level of the gastroesophageal junction. LIVER: Heterogeneous attenuation. No definitive focal lesion. GALLBLADDER: Cholecystectomy. SPLEEN: Unremarkable. PANCREAS: Mildly enlarged but without definitive inflammatory change. ADRENAL GLANDS: Unremarkable. KIDNEYS: Normal configuration. No calcification or obstruction. ABDOMINAL AORTA: Unremarkable, nonaneurysmal. GASTROINTESTINAL TRACT: Stomach with retained fluid and gastric contents. Questionable wall thickening of the pylorus. No small bowel obstruction. Moderate stool through the colon. Likely partial visualization of the appendix which appears unremarkable. URINARY BLADDER: Decompressed. REPRODUCTIVE: Unremarkable. OSSEOUS STRUCTURES: A few scattered small sclerotic bone islands present. OTHER: None. IMPRESSION: 1. No definitive evidence for rectal bleeding. Moderate severity stool retention throughout the colon. No obstruction. 2. Questionable wall thickening at the gastroesophageal junction. Correlation for symptoms. Dictated by: Dictated on workstation # [id number]
[2020-12-07] MEDS ORDERED: LACTATED RINGERS 1,000 ML IV ONE (20:30)
[2020-12-07] MEDS ORDERED: FAMOTIDINE 20MG/2ML IV (PEPCID) IVP ONE (20:45)
[2020-12-07] MEDS ORDERED: ONDA4TAB11 PO (21:14)
[2020-12-07 21:23] VITALS: BP 124/66
== END 2020-12-07 21:23 | disposition home or self-care (01) ==
LOC: EDUNIT# 18:24 → ER 18:26
DX: K85.90 Acute pancreatitis without necrosis or infection, unspecified (principal); F41.9 Anxiety disorder, unspecified; F32.9 Major depressive disorder, single episode, unspecified; F90.9 Attention-deficit hyperactivity disorder, unspecified type; B19.20 Unspecified viral hepatitis C without hepatic coma; Z21 Asymptomatic human immunodeficiency virus [HIV] infection status; Z91.14 Patient's other noncompliance with medication regimen; Z77.22 Contact with and (suspected) exposure to environmental tobacco smoke (acute) (chronic); Z87.891 Personal history of nicotine dependence; Z88.5 Allergy status to narcotic agent
CPT/HCPCS: 36415; 74177; 80053; 80306; 81000; 83690; 85025; 96361; 96374; 96375; 96376

== ENCOUNTER 2020-12-27 11:48 | Emergency (ER) | payer MEDICARE ==
[~2020-12-27] VITALS: Ht 170 cm; Wt 56.8 kg
[~2020-12-27 11:48] MED LIST changes: +ONDA4TAB11 PO
[2020-12-27 11:56] VITALS: BP 114/112
[2020-12-27] MEDS ORDERED: DOXY100T2 PO (11:59)
--- NOTE | 2020-12-27 11:59 | ED Integumentary General ---
General Stated Complaint: CONGESTION Source: patient Exam Limitations: no limitations History of Present Illness Date Seen by Provider: Dec 27, 2020 Time Seen by Provider: 11:55 Initial Comments States that he is compliant with his HIV medication regimen. He states that has been drug-free for 6 months now. ER with a few day history of a sore to the right side of his nose at the nasal septum. He also has a similar sore on the left ear. He denies any cough shortness of breath fevers or chills. Timing/Duration: getting worse Severity: moderate Location: face Associated Symptoms: denies symptoms Allergies and Home Medications Allergies Coded Allergies: codeine (Verified Allergy, Unknown, 01/18/16) hydrocodone (Verified Allergy, Unknown, 01/18/16) Home Medications Alprazolam 2 Mg Tablet, 2 MG PO HS, (Reported) Amphet Asp/Amphet/D-Amphet 30 Mg Tablet, 30 MG PO BID, (Reported) Azithromycin 250 Mg Tablet, 250 MG PO DAILY Prescribed by: AISSATOU REDDY on 10/30/17 1240 Cefdinir 300 Mg Capsule, 300 MG PO BID Prescribed by: AISSATOU REDDY on 10/30/17 1240 Cephalexin 500 Mg Tablet, 500 MG PO QID Prescribed by: AISSATOU REDDY on 07/22/19 1344 Emtricitab/Rilpivirine/Tenofov 1 Each Tablet, 1 EACH PO DAILY, (Reported) Meclizine HCl 25 Mg Tablet, 25 MG PO TID PRN for DIZZINESS Prescribed by: AISSATOU REDDY on 10/18/18 1214 Ondansetron 4 Mg Tab.rapdis, 4 MG PO Q6H PRN for NAUSEA/VOMITING Prescribed by: GERRI SHAH on 12/07/204 Oxycodone HCl/Acetaminophen 1 Each Tablet, 1 EACH PO Q6H PRN for PAIN Prescribed by: MUSHTAQ MAYO on 07/27/17 0310 Oxycodone Hcl 60 Mg Tab.sr.12h, 60 MG PO BID, (Reported) Oxycodone Hcl/Acetaminophen 1 Each Tablet, 1 EACH PO Q6H Prescribed by: ERLINDA LANGFORD on 09/08/14 1557 Sulfamethoxazole/Trimethoprim 1 Each Tablet, 1 EACH PO BID Prescribed by: MUSHTAQ MAYO on 07/27/17 0310 Sulfamethoxazole/Trimethoprim 1 Each Tablet, 1 EACH PO BID Prescribed by: AISSATOU REDDY on 07/22/19 2384 Patient Home Medication List Home Medication List Reviewed: Yes Review of Systems Review of Systems Constitutional: see HPI EENTM: see HPI Respiratory: no symptoms reported Cardiovascular: no symptoms reported Genitourinary: no symptoms reported Musculoskeletal: no symptoms reported Skin: see HPI Psychiatric/Neurological: No Symptoms Reported Endocrine: No Symptoms Reported Hematologic/Lymphatic: No Symptoms Reported Past Ruazvbl-Ugaeiu-Qogyfh Hx Patient Social History Drug of Choice: COCAINE Meth smoked and IV Type Used: Cigarettes Former Smoker, Quit: Apr 07, 2017 2nd Hand Smoke Exposure: Yes Recent Hopitalizations: No Immunizations Up To Date Tetanus Booster (TDap): Less than 5yrs Date of Pneumonia Vaccine: Sep 28, 2012 Date of Influenza Vaccine: Jun 28, 2013 Seasonal Allergies Seasonal Allergies: No Past Medical History Surgeries: Yes (FX JAW) Appendectomy, Gallbladder Respiratory: Yes Pulmonary Fibrosis Cardiac: Yes Syncope Neurological: No HIV/AIDS: Yes Genitourinary: No Gastrointestinal: Yes (HEP C) Chronic Constipation, Hepatitis Musculoskeletal: No Fibromyalgia, Chronic Back Pain Endocrine: No HEENT: No Cancer: No Psychosocial: Yes ADD/ADHD, Anxiety, Depression Integumentary: Yes (HX HERPES) Blood Disorders: No Family Medical History Diabetes Physical Exam Vital Signs Capillary Refill : General Appearance: WD/WN, no apparent distress HEENT: PERRL/EOMI, normal ENT inspection, other (Impetiginous lesion to the left earlobe without cellulitis. There is a similar lesion to the right side of the nasal septum in the nasolabial border. There is no cellulitis. No swelling.) Neck: non-tender, full range of motion Respiratory: no respiratory distress, no accessory muscle use Gastrointestinal: normal bowel sounds, non tender, soft Extremities: normal range of motion, non-tender Neurologic/Psychiatric: alert, normal mood/affect, oriented x 3 Skin: normal color, warm/dry Skin Problem Location: face Lymphatic: no adenopathy Procedures/Interventions Suture Size: 5-0 Departure Impression Primary Impression: Impetigo Disposition: 01 HOME, SELF-CARE Condition: Stable Departure-Patient Inst. Decision time for Depature: 11:57 Referrals: NO,LOCAL PHYSICIAN (PCP/Family) Primary Care Physician Patient Instructions: Impetigo (DC) Add. Discharge Instructions: Apply the antibiotic ointment twice a day for 7 days. Return to ER for any worsening. Take antibiotics as directed. Follow-up with your doctor next week for recheck. Scripts Doxycycline Hyclate (Doxycycline Hyclate) 100 Mg Tablet 100 MG PO BID, #20 TAB 0 Refills Prov: AISSATOU REDDY APRN 12/27/20 AISSATOU REDDY APRN Dec 27, 2020 11:59
[2020-12-27] MEDS ORDERED: MUPIROCIN 2% OINT 22 GM (BACTROBAN) TUBE TOP SCH (21:00)
== END 2020-12-27 12:05 | disposition home or self-care (01) ==
LOC: EDUNIT# 11:48 → ER 11:49
DX: L01.00 Impetigo, unspecified (principal); F90.9 Attention-deficit hyperactivity disorder, unspecified type; F41.9 Anxiety disorder, unspecified; F32.9 Major depressive disorder, single episode, unspecified; M79.7 Fibromyalgia; Z21 Asymptomatic human immunodeficiency virus [HIV] infection status; Z87.891 Personal history of nicotine dependence; Z88.5 Allergy status to narcotic agent
CPT/HCPCS: 99282

== ENCOUNTER 2021-02-04 13:21 | Emergency (ER) | payer MEDICARE ==
[~2021-02-04] VITALS: Ht 170 cm; Wt 56.8 kg
[~2021-02-04 13:21] MED LIST changes: +DOXY100T2 PO
[2021-02-04 13:32] VITALS: BP 107/79
[2021-02-04] MEDS ORDERED: MUPI1OIN6 TP (13:48)
--- NOTE | 2021-02-04 13:49 | ED General ---
General Chief Complaint: General Problems/Pain Stated Complaint: L HAND NUMBESS Nursing Triage Note: PT AMB TO [facility] WITH COMPLAINT OF LEFT HAND NUMBNESS. STATES HAS BEEN ONGOING FOR A LONG TIME. WAS SEEN HERE PREVIOUSLY FOR IMPETIGO OF LEFT HAND AND FEELS IT IS BACK. Nursing Sepsis Screen: No Definite Risk Source of Information: Patient Exam Limitations: No Limitations History of Present Illness Date Seen by Provider: February 04, 2021 Time Seen by Provider: 13:35 Initial Comments Patient is a 55-year-old male who is HIV positive x30 years who presents to the emergency department with a chief complaint of left thumb proximal "numbness". Patient states it has been ongoing for a long time. He states that over the course of the last several days it is worsened and he states that it happens more frequently. He denies any known trauma to the area. He states that the distal portion of his thumb does not go numb just the area overlying the left metacarpophalangeal joint. He also complains of a "red spot" to the tip of his nose. He states this reminds him when of when he had impetigo previously and was treated with an oral antibiotic. No other complaints of illness or injury. All other review of systems reviewed and negative except as stated above. Timing/Duration: 1 Week Severity: Mild Associated Systoms: Denies Symptoms Allergies and Home Medications Allergies Coded Allergies: codeine (Verified Allergy, Unknown, 01/18/16) hydrocodone (Verified Allergy, Unknown, 01/18/16) Home Medications Alprazolam 2 Mg Tablet, 2 MG PO HS, (Reported) Amphet Asp/Amphet/D-Amphet 30 Mg Tablet, 30 MG PO BID, (Reported) Azithromycin 250 Mg Tablet, 250 MG PO DAILY Prescribed by: AISSATOU REDDY on 10/30/17 1240 Cefdinir 300 Mg Capsule, 300 MG PO BID Prescribed by: AISSATOU REDDY on 10/30/17 1240 Cephalexin 500 Mg Tablet, 500 MG PO QID Prescribed by: AISSATOU REDDY on 07/22/19 1344 Doxycycline Hyclate 100 Mg Tablet, 100 MG PO BID Prescribed by: AISSATOU REDDY on 12/27/20 1159 Emtricitab/Rilpivirine/Tenofov 1 Each Tablet, 1 EACH PO DAILY, (Reported) Meclizine HCl 25 Mg Tablet, 25 MG PO TID PRN for DIZZINESS Prescribed by: AISSATOU REDDY on 10/18/18 1214 Ondansetron 4 Mg Tab.rapdis, 4 MG PO Q6H PRN for NAUSEA/VOMITING Prescribed by: GERRI SHAH on 12/07/204 Oxycodone HCl/Acetaminophen 1 Each Tablet, 1 EACH PO Q6H PRN for PAIN Prescribed by: MUSHTAQ MAYO on 07/27/17 0310 Oxycodone Hcl 60 Mg Tab.sr.12h, 60 MG PO BID, (Reported) Oxycodone Hcl/Acetaminophen 1 Each Tablet, 1 EACH PO Q6H Prescribed by: ERLINDA LANGFORD on 09/08/14 1557 Sulfamethoxazole/Trimethoprim 1 Each Tablet, 1 EACH PO BID Prescribed by: MUSHTAQ MAYO on 07/27/17 0310 Sulfamethoxazole/Trimethoprim 1 Each Tablet, 1 EACH PO BID Prescribed by: AISSATOU REDDY on 07/22/19 1344 Patient Home Medication List Home Medication List Reviewed: Yes Review of Systems Review of Systems Constitutional: see HPI EENTM: other (Lesion to the tip of the nose) Respiratory: no symptoms reported Cardiovascular: no symptoms reported Gastrointestinal: no symptoms reported Genitourinary: no symptoms reported Musculoskeletal: joint pain ("Joint numbness" left thumb) Psychiatric/Neurological: Numbness All Other Systems Reviewed Negative Unless Noted: Yes Past Zpuxhvu-Dmdwys-Gbnzmq Hx Patient Social History Alcohol Use: Denies Use Drug of Choice: COCAINE Meth smoked and IV Smoking Status: Former Smoker Type Used: Cigarettes Former Smoker, Quit: Apr 07, 2017 2nd Hand Smoke Exposure: Yes Recent Infectious Disease Expo: No Recent Hopitalizations: No Immunizations Up To Date Tetanus Booster (TDap): Less than 5yrs Date of Pneumonia Vaccine: Sep 28, 2012 Date of Influenza Vaccine: Jun 28, 2013 Seasonal Allergies Seasonal Allergies: No Past Medical History Surgeries: Yes (FX JAW) Appendectomy, Gallbladder Respiratory: Yes Pulmonary Fibrosis Cardiac: Yes Syncope Neurological: No HIV/AIDS: Yes Genitourinary: No Gastrointestinal: Yes (HEP C) Chronic Constipation, Hepatitis Musculoskeletal: No Fibromyalgia, Chronic Back Pain Endocrine: No HEENT: No Cancer: No Psychosocial: Yes ADD/ADHD, Anxiety, Depression Integumentary: Yes (HX HERPES) Blood Disorders: No Family Medical History Diabetes Physical Exam Vital Signs Vital Signs - First Documented 02/04/21 13:32 Pulse 96 Resp 20 B/P (MAP) 107/79 (88) Pulse Ox 99 O2 Delivery Room Air Capillary Refill : Less Than 3 Seconds Height, Weight, BMI Height: 5'4.00" Weight: 150lbs. oz. [id number]; 19.00 BMI Method:Estimated General Appearance: No Apparent Distress, Chronically ill Eyes: Bilateral Eye Normal Inspection, Bilateral Eye PERRL, Bilateral Eye EOMI Neck: Supple Respiratory: Lungs Clear, Normal Breath Sounds, No Accessory Muscle Use, No Respiratory Distress Cardiovascular: Regular Rate, Rhythm Extremity: Normal Inspection, Normal Range of Motion, Other (Patient has some swelling noted to the left metacarpophalangeal joint. It is nontender. Subjectively "numb". Intact range of motion, good strength. 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 Norm as Tested Skin: Normal Color, Warm/Dry, Other (Macular area noted to the tip of the nose without blistering or honey colored crust) Procedures/Interventions Suture Size: 5-0 Progress/Results/Core Measures Suspected Sepsis Recent Fever Within 48 Hours: No Infection Criteria Present: None New/Unexplained Altered Menta: No Sepsis Screen: No Definite Risk SIRS Temperature: Pulse: 96 Respiratory Rate: 20 Blood Pressure 107 /79 Mean: 88 Results/Orders Vital Signs/I&O 02/04/21 13:32 Pulse 96 Resp 20 B/P (MAP) 107/79 (88) Pulse Ox 99 O2 Delivery Room Air Capillary Refill : Less Than 3 Seconds Blood Pressure Mean: 88 Progress Note : Time: 13:49 Progress Note Patient seen and examined, complains of "numbness" overlying the left metacarpophalangeal joint of his thumb. Physical exam is unremarkable. Other than the patient has a macular area of erythema over the tip of the nose. He states this is consistent with when he had impetigo recently. Patient will be prescribed some mupirocin ointment for use on the tip of his nose over the course of the next week. He has no clinical or objective findings to warrant further investigation or evaluation here in the emergency department. He is very comfortable with the plan of care. Good return precautions have been given. Patient verbalized understanding. All questions have been sought and answered. Patient is stable for discharge. Departure Impression Primary Impression: Paresthesia Additional Impression: Erythema of skin of nose Disposition: 01 HOME, SELF-CARE Condition: Stable Departure-Patient Inst. Decision time for Depature: 13:46 Referrals: NO,LOCAL PHYSICIAN (PCP/Family) Primary Care Physician Patient Instructions: Paresthesia (DC) Add. Discharge Instructions: Use the mupirocin/Bactroban ointment to the tip of your nose twice a day for the next 5 days. The numbness in your left thumb should improve with time. Come back to the emergency department if you have any worsening symptoms of numbness, numbness to the hand or left arm, pain or any other emergent concerning symptoms. Scripts Mupirocin (Mupirocin) 1 Gm Oin.pf.marissa 1 GM TP BID, #1 TUBE Prov: REJI MANN MD 02/04/21 REJI MANN MD February 04, 2021 13:49
== END 2021-02-04 14:00 | disposition home or self-care (01) ==
LOC: EDUNIT# 13:21 → ER 13:26
DX: R20.2 Paresthesia of skin (principal); L53.8 Other specified erythematous conditions; G89.29 Other chronic pain; M54.9 Dorsalgia, unspecified; F41.9 Anxiety disorder, unspecified; Z88.5 Allergy status to narcotic agent; Z87.891 Personal history of nicotine dependence; Z79.891 Long term (current) use of opiate analgesic; Z79.899 Other long term (current) drug therapy
CPT/HCPCS: 99281

== ENCOUNTER 2021-02-06 14:51 | Emergency (ER) | payer MEDICARE ==
[~2021-02-06] VITALS: Ht 170 cm; Wt 48.0 kg
[~2021-02-06 14:51] MED LIST changes: +MUPI1OIN6 TP
--- NOTE | 2021-02-06 14:56 | ED Fall/Injury ---
General Stated Complaint: HEAD LAC Source: patient Exam Limitations: no limitations History of Present Illness Date Seen by Provider: February 06, 2021 Time Seen by Provider: 14:56 Initial Comments This is a well-appearing 55-year-old male presents to the ER via POV with complaints of a clock falling off the wall striking him in the head. States there is a small laceration on the front of his head which he controlled bleeding with a dish towel. Last tetanus was 2019. Unknown loss of c onsciousness. Does admit to using methamphetamines. Allergies and Home Medications Allergies Coded Allergies: codeine (Verified Allergy, Unknown, 01/18/16) hydrocodone (Verified Allergy, Unknown, 01/18/16) Home Medications Alprazolam 2 Mg Tablet, 2 MG PO HS, (Reported) Amphet Asp/Amphet/D-Amphet 30 Mg Tablet, 30 MG PO BID, (Reported) Azithromycin 250 Mg Tablet, 250 MG PO DAILY Prescribed by: AISSATOU REDDY on 10/30/17 1240 Cefdinir 300 Mg Capsule, 300 MG PO BID Prescribed by: AISSATOU REDDY on 10/30/17 1240 Cephalexin 500 Mg Tablet, 500 MG PO QID Prescribed by: AISSATOU REDDY on 07/22/19 1344 Doxycycline Hyclate 100 Mg Tablet, 100 MG PO BID Prescribed by: AISSATOU REDDY on 12/27/20 1159 Emtricitab/Rilpivirine/Tenofov 1 Each Tablet, 1 EACH PO DAILY, (Reported) Meclizine HCl 25 Mg Tablet, 25 MG PO TID PRN for DIZZINESS Prescribed by: AISSATOU REDDY on 10/18/18 1214 Mupirocin 1 Gm Oin.pf.marissa, 1 GM TP BID Prescribed by: REJI MANN on 02/04/21 1348 Ondansetron 4 Mg Tab.rapdis, 4 MG PO Q6H PRN for NAUSEA/VOMITING Prescribed by: GERRI SHAH on 12/07/20 2114 Oxycodone HCl/Acetaminophen 1 Each Tablet, 1 EACH PO Q6H PRN for PAIN Prescribed by: MUSHTAQ MAYO on 07/27/17 0310 Oxycodone Hcl 60 Mg Tab.sr.12h, 60 MG PO BID, (Reported) Oxycodone Hcl/Acetaminophen 1 Each Tablet, 1 EACH PO Q6H Prescribed by: ERLINDA LANGFORD on 09/08/14 1557 Sulfamethoxazole/Trimethoprim 1 Each Tablet, 1 EACH PO BID Prescribed by: MUSHTAQ MAYO on 07/27/17 0310 Sulfamethoxazole/Trimethoprim 1 Each Tablet, 1 EACH PO BID Prescribed by: AISSATOU REDDY on 07/22/19 1344 Patient Home Medication List Home Medication List Reviewed: Yes Review of Systems Review of Systems Constitutional: no symptoms reported Eyes: No Symptoms Reported Ears, Nose, Mouth, Throat: no symptoms reported Respiratory: no symptoms reported Cardiovascular: no symptoms reported Gastrointestinal: no symptoms reported Genitourinary: no symptoms reported Musculoskeletal: no symptoms reported Skin: see HPI Psychiatric/Neurological: Anxiety Past Ufnivla-Tmdprz-Ggcdxb Hx Patient Social History Drug of Choice: COCAINE Meth smoked and IV Type Used: Cigarettes Former Smoker, Quit: Apr 07, 2017 2nd Hand Smoke Exposure: Yes Recent Hopitalizations: No Immunizations Up To Date Tetanus Booster (TDap): Less than 5yrs Date of Pneumonia Vaccine: Sep 28, 2012 Date of Influenza Vaccine: Jun 28, 2013 Seasonal Allergies Seasonal Allergies: No Past Medical History Surgeries: Yes (FX JAW) Appendectomy, Gallbladder Respiratory: Yes Pulmonary Fibrosis Cardiac: Yes Syncope Neurological: No HIV/AIDS: Yes Genitourinary: No Gastrointestinal: Yes (HEP C) Chronic Constipation, Hepatitis Musculoskeletal: No Fibromyalgia, Chronic Back Pain Endocrine: No HEENT: No Cancer: No Psychosocial: Yes ADD/ADHD, Anxiety, Depression Integumentary: Yes (HX HERPES) Blood Disorders: No Family Medical History Diabetes Physical Exam Vital Signs Vital Signs - First Documented 02/06/21 14:55 Pulse 104 Resp 16 B/P (MAP) 149/108 (122) Pulse Ox 98 O2 Delivery Room Air Capillary Refill : Height, Weight, BMI Height: 5'4.00" Weight: 150lbs. oz. 68.683739tv; 19.00 BMI Method:Estimated General Appearance: WD/WN, no apparent distress HEENT: PERRL/EOMI, normal ENT inspection Neck: non-tender, full range of motion, normal inspection Cardiovascular: regular rate, rhythm, no murmur Respiratory: lungs clear, normal breath sounds Neurologic/Psychiatric: no motor/sensory deficits, alert, normal mood/affect, oriented x 3 Skin: normal color, warm/dry, other (1.5cm laceartion in hairline on forehead, bleeding controlled) [place] Coma Score Best Eye Response: (4) Open Spontaneously Best Verbal Response: (5) Oriented Best Motor Response: (6) Obeys Commands [place] Total: 15 Procedures/Interventions Other Closure Supply: Wound Adhesive Progress/Results/Core Measures Results/Orders My Orders Orders - GERRI SHAH APRN Let Solution (Let Solution) (02/06/21 15:15) Ct Head Wo (02/06/21 15:21) Medications Given in ED Current Medications Medications Dose Ordered Sig/Marcela Route Start Time Stop Time Status Last Admin Dose Admin Tetracaine/ Epinephrine/ Lidocaine 3 ml ONCE ONCE TOP 02/06/21 15:15 02/06/21 15:16 DC 02/06/21 15:10 3 ML Vital Signs/I&O 02/06/21 02/06/21 14:55 16:05 Pulse 104 93 Resp 16 16 B/P (MAP) 149/108 (122) 137/97 Pulse Ox 98 99 O2 Delivery Room Air Room Air Progress Progress Note : Progress Note Pt. examined and in no acute distress. After cleansing laceration pt. began reporting double vision. CT head ordered. LET ordered. CT head negative for acute findings. Refused to allow me to place rodo/sutures. Used hair apposition technique and approximated with dermabond. Tolerated well. Reviewed discharge plan of care and he is agreeable with plan. Diagnostic Imaging Diagonstic Imaging: CT Plain Films/CT/US/NM/MRI: head Comments NAME: KIMBERLY RIVERO MED REC#: [id number] PT STATUS: REG ER : 1965 PHYSICIAN: GERRI SHAH APRN ADMIT DATE: 02/06/21/ER Draft Date of Exam:02/06/21 CT HEAD WO PROCEDURE: CT head without contrast. TECHNIQUE: Multiple contiguous axial images were obtained through the brain without the use of intravenous contrast. Auto Exposure Controls were utilized during the CT exam to meet ALARA standards for radiation dose reduction. INDICATION: Head injury with visual disturbance. COMPARISON: 07/08/2018. CT HEAD: CT images of the head were obtained. FINDINGS: Ventricles and sulci are within normal limits for size. There is no intracranial hemorrhage identified. There is no abnormal mass effect or shift of midline structures. There is left forehead contusion without underlying calvarial fracture. There are moderate degenerative changes within the temporomandibular joints. IMPRESSION: No acute intracranial abnormality is detected. Dictated on workstation # [id number] Dict: 02/06/21 1539 Trans: 02/06/21 1542 [facility] [id number] Interpreted by: MARIA C BURNETT MD Electronically signed by: Reviewed: Reviewed by Me Departure Impression Primary Impression: Forehead laceration Disposition: HOME, SELF-CARE Condition: Improved Departure-Patient Inst. Decision time for Depature: 15:54 Referrals: NO,LOCAL PHYSICIAN (PCP/Family) Primary Care Physician Patient Instructions: Laceration Repair With Glue (DC) Add. Discharge Instructions: Plan: 1. Keep are clean and dry. May wash gently with soap and water, do not scrub, pat dry. Do not soak or swim. Allow glue to come off naturally. 2. Monitor for signs of infection: redness, drainage, swelling, increased pain. 3. May take Tylenol as needed for pain per package. May apply ice pack 20 m inutes at a time for swelling/discomfort. 4. Return to ER for any new or worsening symptoms. GERRI SHAH COLOR CONTROL OPERATOR February 06, 2021 14:56
[2021-02-06] MEDS ORDERED: L.E.T. SOLUTION 3 ML SYR TOP ONE (15:15)
--- NOTE | 2021-02-06 15:42 | Diagnostic Imaging Report ---
PROCEDURE: CT head without contrast. TECHNIQUE: Multiple contiguous axial images were obtained through the brain without the use of intravenous contrast. Auto Exposure Controls were utilized during the CT exam to meet ALARA standards for radiation dose reduction. INDICATION: Head injury with visual disturbance. COMPARISON: 07/08/2018. CT HEAD: CT images of the head were obtained. FINDINGS: Ventricles and sulci are within normal limits for size. There is no intracranial hemorrhage identified. There is no abnormal mass effect or shift of midline structures. There is left forehead contusion without underlying calvarial fracture. There are moderate degenerative changes within the temporomandibular joints. IMPRESSION: No acute intracranial abnormality is detected. Dictated by: Dictated on workstation # [id number]
[2021-02-06 16:05] VITALS: BP 137/97
== END 2021-02-06 16:05 | disposition home or self-care (01) ==
LOC: EDUNIT# 14:51 → ER 14:53
DX: S01.81XA Laceration without foreign body of other part of head, initial encounter (principal); G89.29 Other chronic pain; M54.9 Dorsalgia, unspecified; F90.9 Attention-deficit hyperactivity disorder, unspecified type; F41.9 Anxiety disorder, unspecified; F32.9 Major depressive disorder, single episode, unspecified; Z88.5 Allergy status to narcotic agent; Z79.899 Other long term (current) drug therapy; Z79.891 Long term (current) use of opiate analgesic; W20.8XXA Other cause of strike by thrown, projected or falling object, initial encounter
CPT/HCPCS: 12001; 70450

== ENCOUNTER → 2021-10-14 | Outpatient (CLI) | payer MEDICARE ==
[~2021-10-14] MED LIST changes: +CATHETER FLUSH 10 ML SYR IV PRN; +DOXY100C5 PO; +HOLD METFORMIN - RECEIVED CONTRAST 20 ML VIAL IV SCH; +IOHEXOL 350 MG/ML 100 ML (OMNIPAQUE 350) VIAL IV ONE; +NS 100 ML (IVPB) BAG IV ONE; +SULF1TAB38 PO
--- NOTE | 2021-10-14 12:05 | Diagnostic Imaging Report ---
PROCEDURE: CT head with and without contrast. TECHNIQUE: Multiple contiguous axial images were obtained through the brain before and after the administration of intravenous contrast. Auto Exposure Controls were utilized during the CT exam to meet ALARA standards for radiation dose reduction. INDICATION: Seizure. COMPARISON: 02/06/2021. FINDINGS: No large acute territorial ischemia, mass, or hemorrhage. No abnormal enhancement. No midline shift or mass effect. The ventricles, cortical sulci, and basilar cisterns are patent and unremarkable. The calvarium is intact. The visualized paranasal sinuses are clear. IMPRESSION: 1. No large acute territorial ischemia, mass, or hemorrhage. No abnormal enhancement. Dictated by: Dictated on workstation # [id number]
== END ==
LOC: RAD 10:50
PROVIDERS: ATTEND Pediatrics
DX: B20 Human immunodeficiency virus [HIV] disease (principal); R56.9 Unspecified convulsions
CPT/HCPCS: 70470

== ENCOUNTER 2022-10-06 21:19 | Emergency (ER) | payer MEDICARE ==
[~2022-10-06] VITALS: Ht 170.2 cm; Wt 54.4 kg
[~2022-10-06 21:19] MED LIST changes: -CATHETER FLUSH 10 ML SYR IV PRN; -HOLD METFORMIN - RECEIVED CONTRAST 20 ML VIAL IV SCH; -IOHEXOL 350 MG/ML 100 ML (OMNIPAQUE 350) VIAL IV ONE; -NS 100 ML (IVPB) BAG IV ONE
[2022-10-06] MEDS ORDERED: ONDANSETRON 4 MG/2 ML (SDV) Z0FRAN IVP ONE (22:30)
[2022-10-06 22:58] LABS: BASOPHILS # (AUTO) 0.1 10^3/uL (0.0-0.1); BASOPHILS % (AUTO) 1 % (0-10); EOSINOPHILS # (AUTO) 0.1 10^3/uL (0.0-0.3); EOSINOPHILS % (AUTO) 1 % (0-10); HEMATOCRIT 39 % (40-54); HEMOGLOBIN 12.5 g/dL (13.3-17.7); LYMPHOCYTES # (AUTO) 2.3 10^3/uL (1.0-4.0); LYMPHOCYTES % (AUTO) 29 % (12-44); MEAN CORPUSCULAR HEMOGLOBIN 24 pg (25-34); MEAN CORPUSCULAR HGB CONC 32 g/dL (32-36); MEAN CORPUSCULAR VOLUME 74 fL (80-99); MEAN PLATELET VOLUME 13.7 fL (9.0-12.2); MONOCYTES # (AUTO) 1.2 10^3/uL (0.0-1.0); MONOCYTES % (AUTO) 15 % (0-12); NEUTROPHILS # (AUTO) 4.5 10^3/uL (1.8-7.8); NEUTROPHILS % (AUTO) 55 % (42-75); PLATELET COUNT 193 10^3/uL (130-400); WHITE BLOOD COUNT 8.2 10^3/uL (4.3-11.0)
[2022-10-06 23:08] LABS: CHLORIDE 104 MMOL/L (98-107); POTASSIUM 3.8 MMOL/L (3.6-5.0); SODIUM 142 MMOL/L (135-145)
[2022-10-06 23:09] LABS: ALBUMIN 4.2 GM/DL (3.2-4.5)
[2022-10-06 23:10] LABS: CALCIUM 9.4 MG/DL (8.5-10.1)
[2022-10-06 23:11] LABS: GLUCOSE 105 MG/DL (70-105); TOTAL PROTEIN 8.4 GM/DL (6.4-8.2)
[2022-10-06 23:12] LABS: CARBON DIOXIDE 26 MMOL/L (21-32)
[2022-10-06 23:13] LABS: BILIRUBIN,TOTAL 0.8 MG/DL (0.1-1.0)
[2022-10-06 23:15] LABS: ALKALINE PHOSPHATASE 78 U/L (40-136); GFR ESTIMATED 78
[2022-10-06 23:16] LABS: BUN/CREATININE RATIO 31
[2022-10-06 23:18] LABS: ALANINE AMINOTRANSFERASE 90 U/L (0-55); SALICYLATE < 5.0 MG/DL (5.0-20.0)
[2022-10-06 23:25] LABS: ACETAMINOPHEN < 10 UG/ML (10-30); SMEAR SCAN COMMENT YES
[2022-10-06 23:38] LABS: TSH (THYROID ANALYZER) 0.88 UIU/ML (0.35-4.94)
[2022-10-07 00:29] LABS: BILIRUBIN,URINE NEGATIVE (NEGATIVE); CLARITY,URINE CLEAR; COLOR,URINE YELLOW; GLUCOSE, URINE (UA) NEGATIVE (NEGATIVE); KETONES,URINE NEGATIVE (NEGATIVE); LEUKOCYTE ESTERASE ,URINE NEGATIVE (NEGATIVE); NITRITE,URINE NEGATIVE (NEGATIVE); PROTEIN,URINE 1+ (NEGATIVE)
[2022-10-07 00:51] LABS: AMPHETAMINE SCREEN, URINE POSITIVE (NEGATIVE); BARBITURATE SCREEN URINE NEGATIVE (NEGATIVE); BENZODIAZEPINES SCREEN URINE NEGATIVE (NEGATIVE); CANNABINOID SCREEN, URINE NEGATIVE (NEGATIVE); COCAINE SCREEN URINE NEGATIVE (NEGATIVE); METHADONE STAT NEGATIVE (NEGATIVE); OPIATE SCREEN URINE NEGATIVE (NEGATIVE); TRICYCLIC ANTIDEPRESSANTS SCRE NEGATIVE (NEGATIVE)
[2022-10-07 00:52] LABS: BACTERIA,URINE NEGATIVE /HPF; OXYCODONE STAT NEGATIVE (NEGATIVE); PROPOXYPHENE STAT NEGATIVE (NEGATIVE)
--- NOTE | 2022-10-07 01:54 | ED Psychosocial ---
General Chief Complaint: Suicidal Ideation Risk Stated Complaint: S.I. Nursing Triage Note: PT AMB TO RM 8 [facility]ONGSIDE [facility] EMS FROM [facility] W C/O FEELING VERY SICK AND SUICIDAL IDEATION. PT REPORTS HE'S BEEN OUT OF [place] (HIV MED) X3 MONTHS D/T GROUP HOME TIME, STATES HE WAS TOLD BY A DR THAT HE CAN NOT ABRUPTLY STOP MED AND HE BELIEVES THIS IS WHY HE'S FEELING SICK. PT C/O RUNNY NOSE, NAUSEA, LIGHTHEADEDNESS, COUGH, DIARRHEA, AND GENERALIZED PAIN. PT ATTEMPTED TO HANG SELF W [facility] AT [facility] WHILE IN THE SHOWER SLOT ROUTER, REPORTS HE'S BEEN FEELING SUICIDAL X2 DAYS D/T SICKLY FEELING. PT STATES "I'VE NEVER FELT THIS BAD IN MY LIFE AND I CAN'T TAKE IT ANY LONGER." PT A&OX4. PT CHANGED INTO GOWN, PT BELONGINGS SECURED BEHIND GATE, RM SECURED AND SUICIDE PRECAUTIONS IMPLEMENTED. Source: patient Exam Limitations: no limitations (TYSON BURKS MD) History of Present Illness Date Seen by Provider: Oct 06, 2022 Time Seen by Provider: 21:29 Initial Comments This 57-year-old gentleman presents to the emergency room via EMS after repor tedly having a suicide attempt at the [facility] where he has been staying in the snf since being released from incarceration yesterday. He was feeling suicidal and attempted to hang himself with a necklace. There was no notable injury from the event. He denies feeling suicidal at present. He has HIV and has been off of his [place] for about 3 months. He has been incarcerated for the last 2-1/2 months. He has had some dry cough but is afebrile. He complains of chronic pain in his knees which makes it difficult to walk. These health issues have made him more depressed and triggered the suicidal ideation per his report. (TYSON BURKS MD) Allergies and Home Medications Allergies Coded Allergies: codeine (Verified Allergy, Unknown, 01/18/16) hydrocodone (Verified Allergy, Unknown, 01/18/16) Patient Home Medication List Home Medication List Reviewed: Yes (TYSON BURKS MD) Alprazolam (Xanax) 2 Mg Tablet, 2 MG PO HS, (Reported) Entered as Reported by: ALBERTO VERDE on 02/16/12 1619 Amphet Asp/Amphet/D-Amphet (Adderall 30 Mg Tablet) 30 Mg Tablet, 30 MG PO BID, (Reported) Entered as Reported by: ALBERTO VERDE on 02/16/12 1619 Azithromycin (Azithromycin) 250 Mg Tablet, 250 MG PO DAILY Prescribed by: AISSATOU REDDY on 10/30/17 1240 Cefdinir (Cefdinir) 300 Mg Capsule, 300 MG PO BID Prescribed by: AISSATOU REDDY on 10/30/17 1240 Cephalexin (Cephalexin) 500 Mg Tablet, 500 MG PO QID Prescribed by: AISSATOU REDDY on 07/22/19 1344 Doxycycline Hyclate (Doxycycline Hyclate) 100 Mg Tablet, 100 MG PO BID Prescribed by: AISSATOU REDDY on 12/27/20 1159 Emtricitab/Rilpivirine/Tenofov (Complera Tablet) 1 Each Tablet, 1 EACH PO DAILY, (Reported) Entered as Reported by: ALBERTO VERDE on 07/20/13 1706 Meclizine HCl (Meclizine HCl) 25 Mg Tablet, 25 MG PO TID PRN for DIZZINESS Prescribed by: AISSATOU REDDY on 10/18/18 1214 Mupirocin (Mupirocin) 1 Gm Oin.pf.marissa, 1 GM TP BID Prescribed by: REJI MANN on 02/04/21 1348 Ondansetron (Ondansetron Odt) 4 Mg Tab.rapdis, 4 MG PO Q6H PRN for NAUSEA/VOMITING Prescribed by: GERRI SHAH on 12/07/20 2114 Oxycodone HCl/Acetaminophen (Oxycodone-Acetaminophen 5-325) 1 Each Tablet, 1 EACH PO Q6H PRN for PAIN Prescribed by: MUSHTAQ MAYO on 07/27/17 0310 Oxycodone Hcl (Oxycontin) 60 Mg Tab.sr.12h, 60 MG PO BID, (Reported) Entered as Reported by: JAMILA GARDUON on 11/26/13 1412 Oxycodone Hcl/Acetaminophen (Oxycodone-Acetaminophen 10-325) 1 Each Tablet, 1 EACH PO Q6H Prescribed by: ERLINDA LANGFORD on 09/08/14 1557 Sulfamethoxazole/Trimethoprim (Bactrim Ds Tablet) 1 Each Tablet, 1 EACH PO BID Prescribed by: MUSHTAQ MAYO on 07/27/17 0310 Sulfamethoxazole/Trimethoprim (Bactrim Ds Tablet) 1 Each Tablet, 1 EACH PO BID Prescribed by: AISSATOU REDDY on 07/22/19 1344 Review of Systems Constitutional: no symptoms reported; No fever EENTM: no symptoms reported Respiratory: see HPI Cardiovascular: no symptoms reported Gastrointestinal: nausea Genitourinary: no symptoms reported Musculoskeletal: see HPI Skin: no symptoms reported Psychiatric/Neurological: See HPI (TYSON BURKS MD) Past Xffvqaq-Wfbmhw-Xcbekc Hx Patient Social History Tobacco Use?: No Use of E-Cig and/or Vaping dev: No Substance use?: No Additional substance use comme: 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 Alcohol Use?: No Pt feels they are or have been: No (TYSON BURKS MD) Immunizations Up To Date Tetanus Booster (TDap): Less than 5yrs Influenza Vaccine Up-to-Date: No; Not Current First/Initial COVID19 Vaccinat: 2020 Second COVID19 Vaccination Kodak: 2020 Third COVID19 Vaccination Date: 2021 COVID19 Vaccine 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 (TYSON BURKS MD) Seasonal Allergies Seasonal Allergies: No (TYSON BURKS MD) Past Medical History Surgery/Hospitalization HX: HIV/AIDS Surgeries: Yes (FX JAW) Appendectomy, Gallbladder Respiratory: Yes Pulmonary Fibrosis Cardiac: Yes Syncope Neurological: No HIV/AIDS: Yes Genitourinary: No Gastrointestinal: Yes (HEP C) Chronic Constipation, Hepatitis Musculoskeletal: Yes (Chronic knee pain) Fibromyalgia, Chronic Back Pain Endocrine: No HEENT: No Cancer: No Psychosocial: Yes ADD/ADHD, Anxiety, Depression Integumentary: Yes (HX HERPES) Blood Disorders: No (TYSON BURKS MD) Family Medical History Diabetes (TYSON BURKS MD) Physical Exam Vital Signs - First Documented 10/06/22 21:20 Temp 37.3 Pulse 96 Resp 20 B/P (MAP) 126/62 (83) Pulse Ox 98 O2 Delivery Room Air (JULIANA,TUNDE K DO) Capillary Refill : Less Than 3 Seconds (TYSON BURKS MD) Height, Weight, BMI Height: 5'4.00" Weight: 150lbs. oz. 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, no motor/sensory deficits, alert, oriented x 3, other (Depressed mood, denies suicidal ideation at this time) Appearance/Memory: disheveled Behavior/Eye Contact: cooperative, good eye contact, other (Speech is difficult to understand this patient does not have teeth) Thoughts/Hallucinations: no apparent hallucination Skin: normal color, warm/dry (TYSON BURKS MD) Progress/Results/Core Measures Results/Orders Lab Results Laboratory Tests Test 10/06/22 22:45 10/06/22 23:30 10/07/22 00:23 Range/Units White Blood Count 8.2 4.3-11.0 10^3/uL Red Blood Count 5.28 4.30-5.52 10^6/uL Hemoglobin 12.5 L 13.3-17.7 g/dL Hematocrit 39 L 40-54 % Mean Corpuscular Volume 74 L 80-99 fL Mean Corpuscular Hemoglobin 24 L 25-34 pg Mean Corpuscular Hemoglobin Concent 32 32-36 g/dL Red Cell Distribution Width 13.3 10.0-14.5 % Platelet Count 193 130-400 10^3/uL Mean Platelet Volume 13.7 H 9.0-12.2 fL Immature Granulocyte % (Auto) 0 % Neutrophils (%) (Auto) 55 42-75 % Lymphocytes (%) (Auto) 29 12-44 % Monocytes (%) (Auto) 15 H 0-12 % Eosinophils (%) (Auto) 1 0-10 % Basophils (%) (Auto) 1 0-10 % Neutrophils # (Auto) 4.5 1.8-7.8 10^3/uL Lymphocytes # (Auto) 2.3 1.0-4.0 10^3/uL Monocytes # (Auto) 1.2 H 0.0-1.0 10^3/uL Eosinophils # (Auto) 0.1 0.0-0.3 10^3/uL Basophils # (Auto) 0.1 0.0-0.1 10^3/uL Immature Granulocyte # (Auto) 0.0 0.0-0.1 10^3/uL Percent Immature Platelet Fraction 10.3 H 0.0-7.6 % Sodium Level 142 135-145 MMOL/L Potassium Level 3.8 3.6-5.0 MMOL/L Chloride Level 104 98-107 MMOL/L Carbon Dioxide Level 26 21-32 MMOL/L Anion Gap 12 5-14 MMOL/L Blood Urea Nitrogen 34 H 7-18 MG/DL Creatinine 1.10 0.60-1.30 MG/DL Estimat Glomerular Filtration Rate 78 BUN/Creatinine Ratio 31 Glucose Level 105 70-105 MG/DL Calcium Level 9.4 8.5-10.1 MG/DL Corrected Calcium 9.2 8.5-10.1 MG/DL Total Bilirubin 0.8 0.1-1.0 MG/DL Aspartate Amino Transf (AST/SGOT) 68 H 5-34 U/L Alanine Aminotransferase (ALT/SGPT) 90 H 0-55 U/L Alkaline Phosphatase 78 40-136 U/L C-Reactive Protein High Sensitivity 1.18 H 0.00-0.50 MG/DL Total Protein 8.4 H 6.4-8.2 GM/DL Albumin 4.2 3.2-4.5 GM/DL TSH [place] Testing 0.88 0.35-4.94 UIU/ML Salicylates Level < 5.0 L 5.0-20.0 MG/DL Acetaminophen Level < 10 L 10-30 UG/ML Serum Alcohol < 10 <10 MG/DL Smear Scan YES Influenza Type A (RT-PCR) Not Detected Not Detecte Influenza Type B (RT-PCR) Not Detected Not Detecte SARS-CoV-2 RNA (RT-PCR) Not Detected Not Detecte Urine Color YELLOW Urine Clarity CLEAR Urine pH 7.0 5-9 Urine Specific [place] 1.020 1.016-1.022 Urine Protein 1+ H NEGATIVE Urine Glucose (UA) NEGATIVE NEGATIVE Urine Ketones NEGATIVE NEGATIVE Urine Nitrite NEGATIVE NEGATIVE Urine Bilirubin NEGATIVE NEGATIVE Urine Urobilinogen 1.0 < = 1.0 MG/DL Urine Leukocyte Esterase NEGATIVE NEGATIVE Urine RBC (Auto) NEGATIVE NEGATIVE Urine RBC NONE /HPF Urine WBC NONE /HPF Urine Crystals NONE /LPF Urine Bacteria NEGATIVE /HPF Urine Casts NONE /LPF Urine Mucus NEGATIVE /LPF Urine Culture Indicated NO Urine Opiates Screen NEGATIVE NEGATIVE Urine Oxycodone Screen NEGATIVE NEGATIVE Urine Methadone Screen NEGATIVE NEGATIVE Urine Propoxyphene Screen NEGATIVE NEGATIVE Urine Barbiturates Screen NEGATIVE NEGATIVE Ur Tricyclic Antidepressants Screen NEGATIVE NEGATIVE Urine Phencyclidine Screen NEGATIVE NEGATIVE Urine Amphetamines Screen POSITIVE H NEGATIVE Urine Methamphetamines Screen POSITIVE H NEGATIVE Urine Benzodiazepines Screen NEGATIVE NEGATIVE Urine Cocaine Screen NEGATIVE NEGATIVE Urine Cannabinoids Screen NEGATIVE NEGATIVE (TUNDE OSEGUERA DO) My Orders Orders - TUNDE OSEGUERA DO General/Regular (10/07/22 Breakfast) Ondansetron Injection (Zofran Injectio (10/07/22 08:15) Bh Status Checks/Observation O Q15M (10/07/22 09:50) (TUNDE OSEGUERA DO) Medications Given in ED Current Medications Medications Dose Ordered Sig/Marcela Route Start Time Stop Time Status Last Admin Dose Admin Azithromycin 500 mg ONCE ONCE PO 10/07/22 03:00 10/07/22 03:01 DC 10/07/22 03:56 500 MG Ondansetron HCl 4 mg ONCE ONCE IVP 10/07/22 08:15 10/07/22 08:16 DC 10/07/22 08:09 4 MG Promethazine HCl 6.25 mg ONCE ONCE IVP 10/07/22 02:00 10/07/22 02:01 DC 10/07/22 02:14 6.25 MG Sodium Chloride 500 ml @ 0 mls/hr Q0M ONCE IV 10/07/22 02:00 10/07/22 02:01 DC 10/07/22 02:14 0 MLS/HR (TUNDE OSEGUERA DO) Vital Signs/I&O 10/07/22 10/07/22 07:01 12:43 Temp 36.5 Pulse 90 96 Resp 18 16 B/P (MAP) 127/87 (100) 132/96 (108) Pulse Ox 96 97 O2 Delivery Room Air Room Air (TUNDE OSEGUERA DO) Blood Pressure Mean: 83 Progress Progress Note #1: Time: 01:57 Progress Note Patient denied any drug or alcohol use but he did have a positive methamphetamine screen. He reported last methamphetamine use was about 6 months ago. He is denying suicidal ideation at the time of my exam. He is otherwise medically cleared. Progress Note #2: Time: 04:07 Progress Note Patient was exhibiting recurrent cough. COVID and influenza screens were negative. Chest x-ray was obtained. Pneumonia cannot be completely ruled out by chest x-ray although labs did not suggest a significant pneumonia. Since patient is HIV positive and has been off his medications, we will treat empirically as a matter of precaution. He is receiving Rocephin and azithromycin for treatment of possible pneumonia. Patient is afebrile with stable vital signs. We are presently awaiting the behavioral health screen. Progress Note #3: Time: 06:53 Progress Note Patient was not fully cooperative with screen. Answer seemed insincere to the screener. Screener will call back later with another attempt. Chest x-ray was abnormal and warrants short-term follow-up. This finding should not interfere with his screening or placement but should be noted for close follow-up in the n ear future. I discussed the x-ray findings with the patient and advised he needs close follow-up imaging in the very near future. Copy of this note will be sent to his primary care provider to help facilitate that process. Care of this patient is being transitioned to Dr. Oseguera at this time. (TYSON BURKS MD) Progress Note : Progress Note 0700--ASSUMED CARE OF PT FROM DR. BURKS, MENTAL HEALTH SCREEN HAS BEEN ATTEMPTED, BUT SCREENER FELT THAT PT WAS TOO SLEEPY TO FULLY COOPERATE WITH SCREEN. ADVISES TO ATTEMPT TO SCREEN PT LATER WHEN HE IS MORE AWAKE. PT IS AWAKE, ALERT AND ORIENTED AT THIS TIME. BREAKFAST TRAY HAS BEEN ORDERED. WILL CONTACT [facility] AFTER 0800 FOR SCREENING. 0845--RN HAS CONTACTED [facility], AND THEY WILL BE SENDING A SCREENER HERE TO ER FOR A MENTAL HEALTH EVALUATION. 921--[facility] SCREENERS HERE TO SEE PT 0930--SCREENERS HAVE COMPLETED THEIR EVALUATION. PT HAS REPORTED TO THEM THAT HE IS NOT SUICIDAL, BUT WANTS INPATIENT TREATMENT. SCREENERS ARE IN PROCESS OF PLACEMENT AT THEIR FACILITY IN [place]. SUICIDE RISK IS DOWNGRADED TO MODERATE RISK HE STATES HE IS NO LONGER SUICIDAL. NO LONGER REQUIRES ONE ON ONE SITTER. (TUNDE OSEGUERA DO) Initial ECG Impression Date: Oct 06, 2022 Initial ECG Impression Time: 21:48 Initial ECG Rate: 98 Initial ECG Rhythm: Normal Sinus Comment Sinus rhythm with no ST elevation or depression. No abnormal intervals or axis deviation. Borderline tachycardia with heart rate at 98. (TYSON BURKS MD) Diagnostic Imaging Diagonstic Imaging: Xray Plain Films/CT/US/NM/MRI: chest Comments Chest x-ray was viewed by me. Image compared with prior. Radiologist report is not yet available. There was concern for possible infiltrate in the right lower lobe. Pneumonia cannot be ruled out. There is also density in the left lower lobe that seem to correspond with a prior nodular density. Significance of this is uncertain. X-ray report was reviewed as below: NAME: KIMBERLY RIVERO [facility] REC#: [id number] PT STATUS: REG ER : 1965 PHYSICIAN: TYSON BURKS MD ADMIT DATE: 10/06/22/ER Draft Date of Exam:10/07/22 CHEST 1 VIEW, AP/PA ONLY INDICATION: Cough. TECHNIQUE: Single view chest 2:35 AM. CORRELATION STUDY: 01/24/2019 FINDINGS: Given patient position, heart size and mediastinum appear generally stable. Likely areas of fibrosis noted in the paramediastinal region. Fullness the right hilum appears accentuated from prior. New probable infiltrate-like opacity at the right lower lung field. Parenchymal densities at the left lung base. Some of which may be calcification. IMPRESSION: 1. Probable infiltrate-like opacity right lung base. Follow-up imaging recommended. 2. Abnormal fullness right hilum. Symptoms accentuated by positioning. Mass and/or adenopathy is not excluded and also warrants follow-up short-term two-view chest. Dictated on workstation # [id number] Dict: 10/07/22618 Trans: 10/07/22620 [id number] Interpreted by: SUSAN HERNANDEZ DO (TYSON BURKS MD) Departure Impression Primary Impression: Suicidal ideation Additional Impressions: Cough Qualified Codes: R05.1 - Acute cough HIV positive Abnormal chest x-ray Noncompliance Disposition: 01 HOME, SELF-CARE Condition: Stable Departure-Patient Inst. Decision time for Depature: 09:33 (TUNDE OSEGUERA DO) Referrals: NO,LOCAL PHYSICIAN (PCP/Family) Primary Care Physician Patient Instructions: Cough, Adult (DC), HIV/AIDS (DC), Incidental Findings, OUTPT MENTAL HEALTH SERVICES Add. Discharge Instructions: FOLLOW UP WITH MENTAL HEALTH ARRANGED All discharge instructions reviewed with patient and/or family. Voiced understanding. Copy Copies To 1: IOANA DODGE MD, JOSHUA T MD Oct 07, 2022 01:54 TUNDE OSEGUERA DO Oct 07, 2022 07:25
[2022-10-07] MEDS ORDERED: PROMETHAZINE INJ 25 MG/ML (PHENERGAN) AMP IVP ONE (02:00)
[2022-10-07] MEDS ORDERED: NS IV 500 ML 500 ML IV ONE (02:00)
[2022-10-07] MEDS ORDERED: AZITHROMYCIN 250 MG TAB (ZITHROMAX) PO ONE (03:00)
[2022-10-07] MEDS ORDERED: cefTRIAXone 1 GM PRE-MIX 50 ML IV STA (03:00)
--- NOTE | 2022-10-07 06:22 | Diagnostic Imaging Report ---
INDICATION: Cough. TECHNIQUE: Single view chest 2:35 AM. CORRELATION STUDY: 01/24/2019 FINDINGS: Given patient position, heart size and mediastinum appear generally stable. Likely areas of fibrosis noted in the paramediastinal region. Fullness the right hilum appears accentuated from prior. New probable infiltrate-like opacity at the right lower lung field. Parenchymal densities at the left lung base. Some of which may be calcification. IMPRESSION: 1. Probable infiltrate-like opacity right lung base. Follow-up imaging recommended. 2. Abnormal fullness right hilum. Symptoms accentuated by positioning. Mass and/or adenopathy is not excluded and also warrants follow-up short-term two-view chest. Dictated by: Dictated on workstation # [id number]
[2022-10-07] MEDS ORDERED: ONDANSETRON 4 MG/2 ML (SDV) Z0FRAN IVP ONE (08:15)
[2022-10-07 12:58] VITALS: BP 132/96
== END 2022-10-07 13:04 | disposition home or self-care (01) ==
LOC: EDUNIT# 21:19 → ER 21:22
DX: T71.162A Asphyxiation due to hanging, intentional self-harm, initial encounter (principal); R05.9 Cough, unspecified; R93.89 Abnormal findings on diagnostic imaging of other specified body structures; Z21 Asymptomatic human immunodeficiency virus [HIV] infection status; Z91.14 Patient's other noncompliance with medication regimen; Z20.822 Contact with and (suspected) exposure to COVID-19; Y92.009 Unspecified place in unspecified non-institutional (private) residence as the place of occurrence of the external cause
CPT/HCPCS: 80053; 84443; 86141; G0480 ×3; 36415; 71045; 80306; 80320; 80329; 81000; 85025; 87636; 93005

== ENCOUNTER 2023-02-25 17:54 | Emergency (ER) | payer MEDICARE, MEDICAID ==
[~2023-02-25] VITALS: Ht 170 cm; Wt 55.3 kg
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
[2023-02-25] MEDS ORDERED: FLUORESCEIN (FLUOR-I-STRIPS) 1 MG STRP OU ONE (18:30)
[2023-02-25] MEDS ORDERED: TETRACAINE 0.5% OPHTH SOLN 4 ML BTL (SINGLE DOSE ONLY) OU ONE (18:30)
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
[2023-02-25 19:18] VITALS: BP 165/100
== END 2023-02-25 19:21 | disposition home or self-care (01) ==
LOC: EDUNIT# 17:54 → ER 17:55
DX: S05.91XA Unspecified injury of right eye and orbit, initial encounter (principal); B20 Human immunodeficiency virus [HIV] disease; W22.8XXA Striking against or struck by other objects, initial encounter
CPT/HCPCS: 70450; 70486; 72125; 99282

== ENCOUNTER 2023-04-07 14:45 | Emergency (ER) | payer MEDICARE, MEDICAID ==
[2023-04-07] MEDS ORDERED: NS IV 1000 ML 1,000 ML IV SCH (15:45)
--- NOTE | 2023-04-07 15:47 | ED Cough/URI ---
General Chief Complaint: Cough/Cold/Flu Symptoms Stated Complaint: CONGESTION | KIDNEYS Source: patient Exam Limitations: no limitations History of Present Illness Date Seen by Provider: Apr 07, 2023 Time Seen by Provider: 15:45 Initial Comments Patient is a 57-year-old male with a history of HIV currently on Cabenuva and injections monthly who presents to ED with flulike symptoms. Reports body aches, fatigue, cough over the past 3 weeks. Reports clear sputum production. Reports some mild shortness of breath with wheezing. Denies of any specific chest pain. Reports scratchy throat but denies of any sore throat at this time. Denies ear pain. States he wakes up with abdominal pain in the morning but that pain typically resolves. Denies of any vomiting or diarrhea or urinary symptoms. Denies history of coronary artery disease, CHF. History of smoking. Denies history of COPD or asthma. denies of any leg swelling. Denies of any night sweats or weight loss. States he has not followed up for his symptoms. Denies any current abdominal pain. Denies of any pain with urination, rash, mouth sores Allergies and Home Medications Allergies Coded Allergies: codeine (Verified Allergy, Unknown, 02/25/23) hydrocodone (Verified Allergy, Unknown, 02/25/23) Patient Home Medication List Home Medication List Reviewed: Yes Albuterol Sulfate (Ventolin Hfa) 1 Puff Puff, 2 PUFF INH Q4H PRN for SHORTNESS OF BREATH Prescribed by: TAL JAMISON on 04/07/23 1656 Alprazolam (Xanax) 2 Mg Tablet, 2 MG PO HS, (Reported) Entered as Reported by: ALBERTO VERDE on 02/16/12 1619 Amphet Asp/Amphet/D-Amphet (Adderall 30 Mg Tablet) 30 Mg Tablet, 30 MG PO BID, (Reported) Entered as Reported by: ALBERTO VERDE on 02/16/12 1619 Azithromycin (Azithromycin) 250 Mg Tablet, 250 MG PO DAILY Prescribed by: AISSATOU REDDY on 10/30/17 1240 Cefdinir (Cefdinir) 300 Mg Capsule, 300 MG PO BID Prescribed by: AISSATOU REDDY on 10/30/17 1240 Cephalexin (Cephalexin) 500 Mg Tablet, 500 MG PO QID Prescribed by: AISSATOU REDDY on 07/22/19 1344 Doxycycline Hyclate (Doxycycline Hyclate) 100 Mg Tablet, 100 MG PO BID Prescribed by: AISSATOU REDDY on 12/27/20 1159 Doxycycline Monohydrate (Doxycycline Monohydrate) 100 Mg Tablet, 100 MG PO BID PRN Prescribed by: TAL JAMISON on 04/07/23 1708 Emtricitab/Rilpivirine/Tenofov (Complera Tablet) 1 Each Tablet, 1 EACH PO DAILY, (Reported) Entered as Reported by: ALBERTO VERDE on 07/20/13 1706 Meclizine HCl (Meclizine HCl) 25 Mg Tablet, 25 MG PO TID PRN for DIZZINESS Prescribed by: AISSATOU REDDY on 10/18/18 1214 Mupirocin (Mupirocin) 1 Gm Oin.pf.marissa, 1 GM TP BID Prescribed by: REJI MANN on 02/04/21 1348 Ondansetron (Ondansetron Odt) 4 Mg Tab.rapdis, 4 MG PO Q6H PRN for NAUSEA/VOMITING Prescribed by: GERRI SHAH on 12/07/20 2114 Oxycodone HCl/Acetaminophen (Oxycodone-Acetaminophen 5-325) 1 Each Tablet, 1 EACH PO Q6H PRN for PAIN Prescribed by: MUSHTAQ MAYO on 07/27/17 0310 Oxycodone Hcl (Oxycontin) 60 Mg Tab.sr.12h, 60 MG PO BID, (Reported) Entered as Reported by: JAMILA GARDUNO on 11/26/13 1412 Oxycodone Hcl/Acetaminophen (Oxycodone-Acetaminophen 10-325) 1 Each Tablet, 1 EACH PO Q6H Prescribed by: ERLINDA LANGFORD on 09/08/14 1557 Prednisone (Prednisone) 20 Mg Tab, 40 MG PO DAILY Prescribed by: TAL JAMISON on 04/07/23 1656 Sulfamethoxazole/Trimethoprim (Bactrim Ds Tablet) 1 Each Tablet, 1 EACH PO BID Prescribed by: MUSHTAQ MAYO on 07/27/17 0310 Sulfamethoxazole/Trimethoprim (Bactrim Ds Tablet) 1 Each Tablet, 1 EACH PO BID Prescribed by: AISSATOU REDDY on 07/22/19 1344 Discontinued Medications Azithromycin (Azithromycin) 250 Mg Tablet, 250 MG PO UD Prescribed by: TAL JAMISON on 04/07/23 4456 Review of Systems Review of Systems Constitutional: chills; No dizziness, No fever; malaise, weakness EENTM: No ear pain, No blurred vision, No double vision Respiratory: cough, short of breath Cardiovascular: No chest pain Gastrointestinal: abdominal pain; No nausea, No vomiting Genitourinary: No decreased output, No discharge Musculoskeletal: No back pain, No gout Skin: No change in color All Other Systems Reviewed Negative Unless Noted: Yes Past Wtgzbqr-Fcajhp-Rppsev Hx Immunizations Up To Date Tetanus Booster (TDap): Less than 5yrs First/Initial COVID19 Vaccinat: 2020 Second COVID19 Vaccination [employer]: 2020 Third COVID19 Vaccination Date: 2021 Seasonal Allergies Seasonal Allergies: No Past Medical History Surgery/Hospitalization HX: HIV/AIDS Surgeries: Yes (FX JAW) Appendectomy, Gallbladder Respiratory: Yes Pulmonary Fibrosis Cardiac: Yes Syncope Neurological: No HIV/AIDS: Yes Genitourinary: No Gastrointestinal: Yes (HEP C) Chronic Constipation, Hepatitis Musculoskeletal: Yes (Chronic knee pain) Fibromyalgia, Chronic Back Pain Endocrine: No HEENT: No Cancer: No Psychosocial: Yes ADD/ADHD, Anxiety, Depression Integumentary: Yes (HX HERPES) Blood Disorders: No Family Medical History Diabetes Physical Exam Vital Signs - First Documented 04/07/23 15:24 Temp 36.0 Pulse 89 Resp 14 B/P (MAP) 154/112 (126) Pulse Ox 99 O2 Delivery Room Air Capillary Refill : Height: 5'4.00" Weight: 150lbs. oz. 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, no motor/sensory deficits, alert, normal mood/affect, oriented x 3 Skin: normal color, warm/dry Progress/Results/Core Measures Suspected Sepsis SIRS Temperature: Pulse: Respiratory Rate: Laboratory Tests 04/07/23 16:02: White Blood Count 10.5 Blood Pressure / Mean: Laboratory Tests 04/07/23 16:02: Creatinine 0.79, INR Comment 0.9, Platelet Count 320, Total Bilirubin 0.5 Results/Orders Lab Results Laboratory Tests Test 04/07/23 15:52 04/07/23 16:02 04/07/23 17:22 Range/Units Influenza Type A (RT-PCR) Not Detected Not Detecte Influenza Type B (RT-PCR) Not Detected Not Detecte SARS-CoV-2 RNA (RT-PCR) Not Detected Not Detecte Group A Streptococcus Screen NEGATIVE NEGATIVE White Blood Count 10.5 4.3-11.0 10^3/uL Red Blood Count 5.05 4.30-5.52 10^6/uL Hemoglobin 11.8 L 13.3-17.7 g/dL Hematocrit 38 L 40-54 % Mean Corpuscular Volume 75 L 80-99 fL Mean Corpuscular Hemoglobin 23 L 25-34 pg Mean Corpuscular Hemoglobin Concent 31 L 32-36 g/dL Red Cell Distribution Width 13.9 10.0-14.5 % Platelet Count 320 130-400 10^3/uL Mean Platelet Volume 11.3 9.0-12.2 fL Immature Granulocyte % (Auto) 1 % Neutrophils (%) (Auto) 63 42-75 % Lymphocytes (%) (Auto) 24 12-44 % Monocytes (%) (Auto) 12 0-12 % Eosinophils (%) (Auto) 1 0-10 % Basophils (%) (Auto) 1 0-10 % Neutrophils # (Auto) 6.6 1.8-7.8 10^3/uL Lymphocytes # (Auto) 2.5 1.0-4.0 10^3/uL Monocytes # (Auto) 1.2 H 0.0-1.0 10^3/uL Eosinophils # (Auto) 0.1 0.0-0.3 10^3/uL Basophils # (Auto) 0.1 0.0-0.1 10^3/uL Immature Granulocyte # (Auto) 0.1 0.0-0.1 10^3/uL Prothrombin Time 12.8 12.2-14.7 SEC INR Comment 0.9 0.8-1.4 Activated Partial Thromboplast Time 34 24-35 SEC Sodium Level 136 135-145 MMOL/L Potassium Level 4.7 3.6-5.0 MMOL/L Chloride Level 99 98-107 MMOL/L Carbon Dioxide Level 26 21-32 MMOL/L Anion Gap 11 5-14 MMOL/L Blood Urea Nitrogen 16 7-18 MG/DL Creatinine 0.79 0.60-1.30 MG/DL Estimat Glomerular Filtration Rate 104 BUN/Creatinine Ratio 20 Glucose Level 89 70-105 MG/DL Calcium Level 9.3 8.5-10.1 MG/DL Corrected Calcium 9.5 8.5-10.1 MG/DL Total Bilirubin 0.5 0.1-1.0 MG/DL Aspartate Amino Transf (AST/SGOT) 33 5-34 U/L Alanine Aminotransferase (ALT/SGPT) 26 0-55 U/L Alkaline Phosphatase 69 40-136 U/L Total Protein 7.9 6.4-8.2 GM/DL Albumin 3.8 3.2-4.5 GM/DL Monoscreen NEGATIVE NEGATIVE My Orders Orders - DEVONTE REDD Covid 19 Inhouse Test (04/07/23 15:30) Influenza A And B By Pcr (04/07/23 15:30) Cbc With Automated Diff (04/07/23 15:42) Comprehensive Metabolic Panel (04/07/23 15:42) Sputum Culture (04/07/23 15:42) Urinalysis (04/07/23 15:42) Protime With Inr (04/07/23 15:42) Partial Thromboplastin Time (04/07/23 15:42) Chest 1 View, Ap/Pa Only (04/07/23 15:42) Ed Iv/Invasive Line Start (04/07/23 15:42) Ns Iv 1000 Ml (Sodium Chloride 0.9%) (04/07/23 15:45) Rapid Strep A Screen (04/07/23 15:42) T [place] Cd4 Cells (04/07/23 15:42) Monotest (04/07/23 15:42) Throat Culture Strep A Confirm (7/11/23 15:52) Vital Signs/I&O 04/07/23 04/07/23 15:24 17:27 Temp 36.0 36.0 Pulse 89 80 Resp 14 14 B/P (MAP) 154/112 (126) 150/94 Pulse Ox 99 99 O2 Delivery Room Air Room Air Capillary Refill : Departure Communication (PCP) Reviewed previous ER visits, H&P, lab testing. History of HIV. Currently receiving cabenuva treatments monthly. Patient with flulike symptoms over the past 3 weeks. Patient is afebrile. He is not hypoxic or tachycardic. Due to the history of HIV generalized lab work, mono, strep, COVID influenza, chest x- ray and generalized lab work was ordered. Differential diagnosis viral syndrome, pneumonia, bronchitis, opportunistic infection. No evidence of rash or lesions. No sores in the mouth. Does report some abdominal pain in the morning but typically resolves on its own. No vomiting or diarrhea. No urinary symptoms. Denies any drug use or alcohol use. CBC showed normal white blood count chronic anemia at 11.8. Normal platelets. Chemistry grossly unremarkable. Refused urinalysis. Did start on a liter of fluid. States he has been drinking and urinating at home. COVID, mono, strep and influenza were negative. Chest x-ray negative for pneumonia. Denies of any specific chest pain. Did have some mild wheezing throughout. Patient is not hypoxic. Patient does not appear in respiratory distress. Concern for bronchitis. Due to the continuous cough will discharge with doxycycline, short burst steroids and albuterol inhaler. Did add a CD4 count. Will not get results until 3 to 5 days. If no improvement and low CD4 count may need to be checked for other potential infection such as fungal, parasitic or other both bacterial or viral infections. If any worsening symptoms such as chest pain shortness of breath, change in mental status, asked neck pain, severe head pain return back to ED. F ollow-up your PCP in 2 to 3 days for reevaluation. Impression Primary Impression: Upper respiratory infection Disposition: HOME, SELF-CARE Condition: Stable Departure-Patient Inst. Decision time for Depature: 16:53 Referrals: [facility] (PCP/Family) Primary Care Physician Patient Instructions: Upper Respiratory Infection ED Add. Discharge Instructions: Recommend follow-up your PCP in 2 to 3 days for reevaluation All discharge instructions reviewed with patient and/or family. Voiced understanding. Scripts Doxycycline Monohydrate (Doxycycline Monohydrate) 100 Mg Tablet 100 MG PO BID PRN for 7 Days, #14 TAB Prov: DEVONTE REDD 04/07/23 Prednisone (Prednisone) 20 Mg Tab 40 MG PO DAILY for 5 Days, #10 TAB Prov: DEVONTE REDD 04/07/23 Albuterol Sulfate (VENTOLIN HFA) 1 Puff Puff 2 PUFF INH Q4H PRN for SHORTNESS OF BREATH, #1 EA 1 PUFF = 90 MCG Prov: DEVONTE REDD 04/07/23 DEVONTE REDD Apr 07, 2023 15:47
[2023-04-07 16:12] LABS: BASOPHILS # (AUTO) 0.1 10^3/uL (0.0-0.1); BASOPHILS % (AUTO) 1 % (0-10); EOSINOPHILS # (AUTO) 0.1 10^3/uL (0.0-0.3); EOSINOPHILS % (AUTO) 1 % (0-10); HEMATOCRIT 38 % (40-54); HEMOGLOBIN 11.8 g/dL (13.3-17.7); LYMPHOCYTES # (AUTO) 2.5 10^3/uL (1.0-4.0); LYMPHOCYTES % (AUTO) 24 % (12-44); MEAN CORPUSCULAR HEMOGLOBIN 23 pg (25-34); MEAN CORPUSCULAR HGB CONC 31 g/dL (32-36); MEAN CORPUSCULAR VOLUME 75 fL (80-99); MEAN PLATELET VOLUME 11.3 fL (9.0-12.2); MONOCYTES # (AUTO) 1.2 10^3/uL (0.0-1.0); MONOCYTES % (AUTO) 12 % (0-12); NEUTROPHILS # (AUTO) 6.6 10^3/uL (1.8-7.8); NEUTROPHILS % (AUTO) 63 % (42-75); PLATELET COUNT 320 10^3/uL (130-400); WHITE BLOOD COUNT 10.5 10^3/uL (4.3-11.0)
--- NOTE | 2023-04-07 16:13 | Diagnostic Imaging Report ---
EXAMINATION: Chest, 1 view. HISTORY: Cough. COMPARISON: 10/07/2022. FINDINGS: There is unchanged volume loss in the left hemithorax and scarring in the left upper zone. There is scarring in the right hilum. The lungs are hyperinflated. No edema or pneumonia. No pleural effusion or pneumothorax. IMPRESSION: Hyperinflated lungs with areas of scarring, unchanged from prior exam. Dictated by: Dictated on workstation # [id number]
[2023-04-07 16:20] LABS: ALBUMIN 3.8 GM/DL (3.2-4.5)
[2023-04-07 16:21] LABS: POTASSIUM 4.7 MMOL/L (3.6-5.0)
[2023-04-07 16:22] LABS: CALCIUM 9.3 MG/DL (8.5-10.1)
[2023-04-07 16:23] LABS: TOTAL PROTEIN 7.9 GM/DL (6.4-8.2)
[2023-04-07 16:25] LABS: BILIRUBIN,TOTAL 0.5 MG/DL (0.1-1.0)
[2023-04-07 16:27] LABS: CREATININE SERUM 0.79 MG/DL (0.60-1.30)
[2023-04-07 16:28] LABS: INR 0.9 (0.8-1.4); PROTHROMBIN TIME PATIENT 12.8 SEC (12.2-14.7)
[2023-04-07] MEDS ORDERED: PRD20T PO (16:56)
[2023-04-07] MEDS ORDERED: RT-ALBUINH INH (16:56)
[2023-04-07] MEDS ORDERED: AZIT250T12 PO (16:56)
[2023-04-07] MEDS ORDERED: SULF-221 PO (16:56)
[2023-04-07] MEDS ORDERED: DOXY100T31 PO (17:08)
[2023-04-07 17:27] VITALS: BP 150/94
[2023-04-08] MEDS ORDERED: ONDA4TAB11 SL (17:23)
== END 2023-04-07 17:27 | disposition home or self-care (01) ==
LOC: EDUNIT# 14:45 → ER 14:46
DX: J06.9 Acute upper respiratory infection, unspecified (principal); B20 Human immunodeficiency virus [HIV] disease; Z79.899 Other long term (current) drug therapy; Z87.891 Personal history of nicotine dependence; Z20.822 Contact with and (suspected) exposure to COVID-19
CPT/HCPCS: 36415; 71045; 80053; 85025; 85610; 85730; 86308; 86361; 87430; 87636

== ENCOUNTER 2023-04-08 15:24 | Emergency (ER) | payer MEDICARE, MEDICAID ==
[~2023-04-08] VITALS: Ht 170 cm; Wt 51.2 kg
[~2023-04-08 15:24] MED LIST changes: +DOXY100T31 PO; +PRD20T PO; +RT-ALBUINH INH; +SULF-221 PO
--- NOTE | 2023-04-08 15:55 | ED GI ---
General Chief Complaint: Abdominal/GI Problems Stated Complaint: N/V/D Nursing Triage Note: PT STATES NVD COUGH FOR 2 WEEKS Source of Information: Patient Exam Limitations: No Limitations History of Present Illness Date Seen by Provider: Apr 08, 2023 Time Seen by Provider: 15:46 Initial Comments Patient is a 57-year-old male with a history of HIV (AIDS defined), hep C who presents to the emergency department with worsening flulike symptoms. Patient states that he has had the symptoms for about 2 weeks, he was seen in the emergency department yesterday with extensive testing, sent out with an albuterol inhaler, prednisone and doxycycline. Patient states that he has been able to take his medications and he has used his inhaler twice. His cough is a little productive. He denies fevers or chills. He states he has not had anything to eat or really been able to hold down fluids for the last 2 or 3 days. Nothing sounds good. He has generalized weakness/malaise. No problems with bowel or bladder. No rashes. He endorses epigastric abdominal discomfort. No prior surgeries on his abdomen. Timing/Duration: 2-3 Days (no food/upset stomach) Severity/Quality: Moderate Location: Epigastric Radiation: No Radiation Modifying Factors: Worsens With Eating Associated Symptoms: Nausea/Vomiting, Shortness of Air, Weakness, Other (cough/congestion/body aches) Allergies and Home Medications Allergies Coded Allergies: codeine (Verified Allergy, Unknown, 02/25/23) hydrocodone (Verified Allergy, Unknown, 02/25/23) Patient Home Medication List Home Medication List Reviewed: Yes Albuterol Sulfate (Ventolin Hfa) 1 Puff Puff, 2 PUFF INH Q4H PRN for SHORTNESS OF BREATH Prescribed by: TAL JAMISON on 04/07/23 1656 Alprazolam (Xanax) 2 Mg Tablet, 2 MG PO HS, (Reported) Entered as Reported by: ALBERTO VERDE on 02/16/12 1619 Amphet Asp/Amphet/D-Amphet (Adderall 30 Mg Tablet) 30 Mg Tablet, 30 MG PO BID, (Reported) Entered as Reported by: ALBERTO VERDE on 02/16/12 1619 Azithromycin (Azithromycin) 250 Mg Tablet, 250 MG PO DAILY Prescribed by: AISSATOU REDDY on 10/30/17 1240 Cefdinir (Cefdinir) 300 Mg Capsule, 300 MG PO BID Prescribed by: AISSATOU REDDY on 10/30/17 1240 Cephalexin (Cephalexin) 500 Mg Tablet, 500 MG PO QID Prescribed by: AISSATOU REDDY on 07/22/19 1344 Doxycycline Hyclate (Doxycycline Hyclate) 100 Mg Tablet, 100 MG PO BID Prescribed by: AISSATOU REDDY on 12/27/20 1159 Doxycycline Monohydrate (Doxycycline Monohydrate) 100 Mg Tablet, 100 MG PO BID PRN Prescribed by: TAL JAMISON on 04/07/23 1708 Emtricitab/Rilpivirine/Tenofov (Complera Tablet) 1 Each Tablet, 1 EACH PO DAILY, (Reported) Entered as Reported by: ALBERTO VERDE on 07/20/13 1706 Meclizine HCl (Meclizine HCl) 25 Mg Tablet, 25 MG PO TID PRN for DIZZINESS Prescribed by: AISSATOU REDDY on 10/18/18 1214 Mupirocin (Mupirocin) 1 Gm Oin.pf.marissa, 1 GM TP BID Prescribed by: REJI MANN on 02/04/21 1348 Ondansetron (Ondansetron Odt) 4 Mg Tab.rapdis, 4 MG PO Q6H PRN for NAUSEA/VOMITING Prescribed by: GERRI SHAH on 12/07/20 2114 Ondansetron (Ondansetron Odt) 4 Mg Tab.rapdis, 4 MG SL Q8H PRN for NAUSEA/VO MITING Prescribed by: REJI MANN on 04/08/23 1723 Oxycodone HCl/Acetaminophen (Oxycodone-Acetaminophen 5-325) 1 Each Tablet, 1 EACH PO Q6H PRN for PAIN Prescribed by: MUSHTAQ MAYO on 07/27/17 0310 Oxycodone Hcl (Oxycontin) 60 Mg Tab.sr.12h, 60 MG PO BID, (Reported) Entered as Reported by: JAMILA GARDUNO on 11/26/13 1412 Oxycodone Hcl/Acetaminophen (Oxycodone-Acetaminophen 10-325) 1 Each Tablet, 1 EACH PO Q6H Prescribed by: ERLINDA LANGFORD on 09/08/14 1557 Prednisone (Prednisone) 20 Mg Tab, 40 MG PO DAILY Prescribed by: TAL JAMISON on 04/07/23 1656 Sulfamethoxazole/Trimethoprim (Bactrim Ds Tablet) 1 Each Tablet, 1 EACH PO BID Prescribed by: MUSHTAQ MAYO on 07/27/17 0310 Sulfamethoxazole/Trimethoprim (Bactrim Ds Tablet) 1 Each Tablet, 1 EACH PO BID Prescribed by: AISSATOU REDDY on 07/22/19 1344 Discontinued Medications Azithromycin (Azithromycin) 250 Mg Tablet, 250 MG PO UD Prescribed by: TAL JAMISON on 04/07/23 1656 Review of Systems Review of Systems Constitutional: see HPI, fever, malaise EENTM: Nose Congestion Respiratory: Cough, Shortness of Air Cardiovascular: No Symptoms Reported Gastrointestinal: Abdominal Pain, Nausea, Poor Appetite, Poor Fluid Intake Genitourinary: No Symptoms Reported Musculoskeletal: other (body aches) Skin: no symptoms reported Psychiatric/Neurological: No Symptoms Reported All Other Systems Reviewed Negative Unless Noted: Yes Past Oqmgjid-Ydopjw-Jbskxz Hx Patient Social History Tobacco Use?: No Use of E-Cig and/or Vaping dev: No Substance use?: No Alcohol Use?: No Immunizations Up To Date Tetanus Booster (TDap): Less than 5yrs First/Initial COVID19 Vaccinat: 2020 Second COVID19 Vaccination [employer]: 2020 Third COVID19 Vaccination Date: 2021 Seasonal Allergies Seasonal Allergies: No Past Medical History Surgery/Hospitalization HX: HIV/AIDS Surgeries: Yes (FX JAW) Appendectomy, Gallbladder Respiratory: Yes Pulmonary Fibrosis Cardiac: Yes Syncope Neurological: No HIV/AIDS: Yes Genitourinary: No Gastrointestinal: Yes (HEP C) Chronic Constipation, Hepatitis Musculoskeletal: Yes (Chronic knee pain) Fibromyalgia, Chronic Back Pain Endocrine: No HEENT: No Cancer: No Psychosocial: Yes ADD/ADHD, Anxiety, Depression Integumentary: Yes (HX HERPES) Blood Disorders: No Family Medical History Diabetes Physical Exam Vital Signs Vital Signs - First Documented 04/08/23 15:30 Temp 37.5 Pulse 85 Resp 20 B/P (MAP) 158/113 (128) Pulse Ox 99 O2 Delivery Room Air Capillary Refill : Less Than 3 Seconds Height/Weight/BMI Height: 5'4.00" Weight: 150lbs. oz. [id number]; 17.00 BMI Method:Estimated General Appearance: no apparent distress, thin HEENT: PERRL/EOMI Respiratory: normal breath sounds, no respiratory distress, no accessory muscle use, other (coarse wet cough) Cardiovascular: regular rate, rhythm Gastrointestinal: normal bowel sounds, soft, tenderness (mild epigastric discomfort) Extremities: normal range of motion, normal inspection Neurologic/Psychiatric: alert, normal mood/affect, oriented x 3 Skin: normal color, warm/dry Progress/Results/Core Measures Results/Orders Lab Results Laboratory Tests Test 04/08/23 15:33 Range/Units White Blood Count 12.2 H 4.3-11.0 10^3/uL Red Blood Count 5.07 4.30-5.52 10^6/uL Hemoglobin 12.1 L 13.3-17.7 g/dL Hematocrit 38 L 40-54 % Mean Corpuscular Volume 75 L 80-99 fL Mean Corpuscular Hemoglobin 24 L 25-34 pg Mean Corpuscular Hemoglobin Concent 32 32-36 g/dL Red Cell Distribution Width 13.9 10.0-14.5 % Platelet Count 329 130-400 10^3/uL Mean Platelet Volume 11.7 9.0-12.2 fL Immature Granulocyte % (Auto) 1 % Neutrophils (%) (Auto) 77 H 42-75 % Lymphocytes (%) (Auto) 14 12-44 % Monocytes (%) (Auto) 7 0-12 % Eosinophils (%) (Auto) 0 0-10 % Basophils (%) (Auto) 1 0-10 % Neutrophils # (Auto) 9.4 H 1.8-7.8 10^3/uL Lymphocytes # (Auto) 1.7 1.0-4.0 10^3/uL Monocytes # (Auto) 0.9 0.0-1.0 10^3/uL Eosinophils # (Auto) 0.0 0.0-0.3 10^3/uL Basophils # (Auto) 0.1 0.0-0.1 10^3/uL Immature Granulocyte # (Auto) 0.1 0.0-0.1 10^3/uL Sodium Level 137 135-145 MMOL/L Potassium Level 3.6 3.6-5.0 MMOL/L Chloride Level 101 98-107 MMOL/L Carbon Dioxide Level 25 21-32 MMOL/L Anion Gap 11 5-14 MMOL/L Blood Urea Nitrogen 14 7-18 MG/DL Creatinine 0.76 0.60-1.30 MG/DL Estimat Glomerular Filtration Rate 105 BUN/Creatinine Ratio 18 Glucose Level 93 70-105 MG/DL Calcium Level 8.8 8.5-10.1 MG/DL My Orders Orders - REJI MANN MD Cbc With Automated Diff (04/08/23 15:53) Basic Metabolic Panel (04/08/23 15:53) Ondansetron Injection (Zofran Injectio (04/08/23 16:00) Pantoprazole Injection (Protonix Injecti (04/08/23 16:00) Medications Given in ED Vital Signs/I&O 04/08/23 04/08/23 15:30 17:40 Temp 37.5 37.5 Pulse 85 80 Resp 20 20 B/P (MAP) 158/113 (128) 156/100 Pulse Ox 99 99 O2 Delivery Room Air Room Air 04/08/23 23:59 Intake Total 50 ml Balance 50 ml Blood Pressure Mean: 128 Progress Progress Note : Time: 17:00 Progress Note Patient feeling much better after Zofran. Ambulated to the bathroom. Tells me he is feeling hungry. Will feed and send him home. Seen and evaluated by me, evaluation today includes review of medical records from previous visit, physical exam, CBC, basic metabolic panel. Pertinent physical exam findings thin chronically ill-appearing -[place] male in no acute distress. Heart is regular, lungs are clear, abdomen is diffusely mildly tender to palpation. Not distended bowel sounds are present. Seems to have the most tenderness in the epigastrium. No focal neurologic deficits. Vital signs are stable. Room air oxygen saturations 99%. No increased work of breathing or respiratory distress is noted. He does demonstrate coarse wet cough. He is afebrile. Differential diagnosis based on history and physical exam, acute bronchitis, pneumonia, dehydration, anxiety about health Patient's labs independently reviewed and interpreted by me. His CBC shows a white count of 12.2 which is slightly increased over the visit 24 hours ago. His hemoglobin is 12.1 hematocrit of 38 platelet count of 329. He has a differential of 77% segmented neutrophils. Basic metabolic panel is normal. Patient is treated in the emergency department for his nausea with 4 mg of Zofran and 40 mg of IV Protonix. Reevaluated after these medications and states that he feels much better. Up and ambulatory asking for food. Clinically appears stable for discharge. He was placed on antibiotics in the visit 24 hours prior. No indications at this time for admission or re- x-ray.. Patient is encouraged to follow-up with his primary care physician. Return precautions provided in both verbal and written format. All questions are sought and answered. Patient is improved at discharge Departure Impression Primary Impression: Bronchitis Disposition: 01 HOME, SELF-CARE Condition: Stable Departure-Patient Inst. Decision time for Depature: 17:19 Referrals: [facility] [place] (PCP/Family) Primary Care Physician Patient Instructions: Bronchitis, Adult ED Add. Discharge Instructions: Continue your Antibiotics as prescribed. Use the inhaler every 4-6 hours as needed for cough and SOB. Zofran 4mg every 8 hours as needed for nausea. Please follow up with your primary care provider as needed,. Return to the Emergency Department for any new, concerning or emergent complaints. Scripts Ondansetron (Ondansetron Odt) 4 Mg Tab.rapdis 4 MG SL Q8H PRN for NAUSEA/VOMITING, #10 TAB Prov: REJI MANN MD 04/08/23 Copy Copies To 1: MARILEE MERRITT KATHRYN M MD Apr 08, 2023 15:55
[2023-04-08 15:58] LABS: BASOPHILS # (AUTO) 0.1 10^3/uL (0.0-0.1); BASOPHILS % (AUTO) 1 % (0-10); EOSINOPHILS % (AUTO) 0 % (0-10); HEMATOCRIT 38 % (40-54); HEMOGLOBIN 12.1 g/dL (13.3-17.7); LYMPHOCYTES # (AUTO) 1.7 10^3/uL (1.0-4.0); LYMPHOCYTES % (AUTO) 14 % (12-44); MEAN CORPUSCULAR HEMOGLOBIN 24 pg (25-34); MEAN CORPUSCULAR HGB CONC 32 g/dL (32-36); MEAN CORPUSCULAR VOLUME 75 fL (80-99); MEAN PLATELET VOLUME 11.7 fL (9.0-12.2); MONOCYTES # (AUTO) 0.9 10^3/uL (0.0-1.0); MONOCYTES % (AUTO) 7 % (0-12); NEUTROPHILS # (AUTO) 9.4 10^3/uL (1.8-7.8); NEUTROPHILS % (AUTO) 77 % (42-75); PLATELET COUNT 329 10^3/uL (130-400); WHITE BLOOD COUNT 12.2 10^3/uL (4.3-11.0)
[2023-04-08] MEDS ORDERED: PANTOPRAZOLE 40 MG (PROTONIX) VIAL IV ONE (16:00)
[2023-04-08] MEDS ORDERED: ONDANSETRON 4 MG/2 ML (SDV) Z0FRAN IVP ONE (16:00)
[2023-04-08 16:03] LABS: POTASSIUM 3.6 MMOL/L (3.6-5.0)
[2023-04-08 16:04] LABS: CALCIUM 8.8 MG/DL (8.5-10.1)
[2023-04-08 16:09] LABS: CREATININE SERUM 0.76 MG/DL (0.60-1.30)
[2023-04-08] MEDS ORDERED: ONDA4TAB11 SL (17:23)
[2023-04-08 17:40] VITALS: BP 156/100
== END 2023-04-08 17:40 | disposition home or self-care (01) ==
LOC: EDUNIT# 15:24 → ER 15:25
DX: J40 Bronchitis, not specified as acute or chronic (principal)
CPT/HCPCS: 36415; 80048; 85025

== ENCOUNTER 2023-05-19 13:53 | Emergency (ER) | payer MEDICARE, MEDICAID ==
[~2023-05-19] VITALS: Ht 175 cm; Wt 63.6 kg
[~2023-05-19 13:53] MED LIST changes: +ONDA4TAB11 SL
[2023-05-19] MEDS ORDERED: OLANZapine 5 MG ODT TABLET PO ONE (14:15)
[2023-05-19 14:41] LABS: BASOPHILS % (AUTO) 1 % (0-10); EOSINOPHILS % (AUTO) 0 % (0-10); HEMATOCRIT 35 % (40-54); HEMOGLOBIN 10.9 g/dL (13.3-17.7); LYMPHOCYTES # (AUTO) 1.3 10^3/uL (1.0-4.0); LYMPHOCYTES % (AUTO) 29 % (12-44); MEAN CORPUSCULAR HEMOGLOBIN 24 pg (25-34); MEAN CORPUSCULAR HGB CONC 31 g/dL (32-36); MEAN CORPUSCULAR VOLUME 76 fL (80-99); MEAN PLATELET VOLUME 12.1 fL (9.0-12.2); MONOCYTES % (AUTO) 21 % (0-12); NEUTROPHILS # (AUTO) 2.2 10^3/uL (1.8-7.8); NEUTROPHILS % (AUTO) 49 % (42-75); PLATELET COUNT 233 10^3/uL (130-400); WHITE BLOOD COUNT 4.5 10^3/uL (4.3-11.0)
--- NOTE | 2023-05-19 14:45 | ED Psychosocial ---
General Chief Complaint: Psych/Social Disorder Stated Complaint: MENTAL SCREENING Nursing Triage Note: pt to ed with [facility] mental health staff, they state the pt is not acting his norm, he is very tearful and paranoid. pt states that something is going on inside his body and he does not know what it is. states there may be some kind of bottle cap in his rectum. denies sucidal or homicidal ideations. pt is very paranoid at times stating he thinks we are going to do an operation. states he thinks someone may have put something in his coffee because what he drank at the [facility] was not his coffee. Source: patient, other ([place] mental health director) Exam Limitations: no limitations History of Present Illness Date Seen by Provider: May 19, 2023 Time Seen by Provider: 14:05 Initial Comments Patient is here with mental health screener and was noted to be somewhat psychotic today. They report the patient is acting very anxious and is tearful and somewhat paranoid. No report of suicidal or homicidal ideations per mental health team. Patient denies suicidal or homicidal ideations. Patient states that he cannot get his mind to stop thinking about a certain person and is just racing. Complains plastic water bottle In his rectum. Denies blood in his urine or stool but states his urine has been darker recently. Denies chest pain or breathing problems. Denies fever chills or other illness symptoms. Patient is HIV positive that is well managed with the monthly shots. [facility] Patient states that he has 3 bottles of Zyprexa [place] and he does not take him and he just wants to be honest with this. He reports that these make him drowsy and so he wants to avoid it. Patient does have flight of ideas and is asked talking and somewhat anxious appearing Timing/Duration: this afternoon, constant Severity: moderate Associated Symptoms: impaired concentration Allergies and Home Medications Allergies Coded Allergies: codeine (Verified Allergy, Unknown, 02/25/23) hydrocodone (Verified Allergy, Unknown, 02/25/23) Patient Home Medication List Home Medication List Reviewed: Yes Albuterol Sulfate (Ventolin Hfa) 1 Puff Puff, 2 PUFF INH Q4H PRN for SHORTNESS OF BREATH Prescribed by: TAL JAMISON on 04/07/23 7652 Alprazolam (Xanax) 2 Mg Tablet, 2 MG PO HS, (Reported) Entered as Reported by: ALBERTO VERDE on 02/16/12 1619 Amphet Asp/Amphet/D-Amphet (Adderall 30 Mg Tablet) 30 Mg Tablet, 30 MG PO BID, (Reported) Entered as Reported by: ALBERTO VERDE on 02/16/12 1619 Azithromycin (Azithromycin) 250 Mg Tablet, 250 MG PO DAILY Prescribed by: AISSATOU REDDY on 10/30/17 1240 Cefdinir (Cefdinir) 300 Mg Capsule, 300 MG PO BID Prescribed by: AISSATOU REDDY on 10/30/17 1240 Cephalexin (Cephalexin) 500 Mg Tablet, 500 MG PO QID Prescribed by: AISSATOU REDDY on 07/22/19 1344 Doxycycline Hyclate (Doxycycline Hyclate) 100 Mg Tablet, 100 MG PO BID Prescribed by: AISSATOU REDDY on 12/27/20 1159 Doxycycline Monohydrate (Doxycycline Monohydrate) 100 Mg Tablet, 100 MG PO BID PRN Prescribed by: TAL JAMISON on 04/07/23 1708 Emtricitab/Rilpivirine/Tenofov (Complera Tablet) 1 Each Tablet, 1 EACH PO DAILY, (Reported) Entered as Reported by: ALBERTO VERDE on 07/20/13 1706 Meclizine HCl (Meclizine HCl) 25 Mg Tablet, 25 MG PO TID PRN for DIZZINESS Prescribed by: AISSATOU REDDY on 10/18/18 1214 Mupirocin (Mupirocin) 1 Gm Oin.pf.marissa, 1 GM TP BID Prescribed by: REJI MANN on 02/04/21 1348 Ondansetron (Ondansetron Odt) 4 Mg Tab.rapdis, 4 MG PO Q6H PRN for NAUSEA/VOMITING Prescribed by: GERRI SHAH on 12/07/20 2114 Ondansetron (Ondansetron Odt) 4 Mg Tab.rapdis, 4 MG SL Q8H PRN for NAUSEA/VO MITING Prescribed by: REJI MANN on 04/08/23 1723 Oxycodone HCl/Acetaminophen (Oxycodone-Acetaminophen 5-325) 1 Each Tablet, 1 EACH PO Q6H PRN for PAIN Prescribed by: MUSHTAQ MAYO on 07/27/17 0310 Oxycodone Hcl (Oxycontin) 60 Mg Tab.sr.12h, 60 MG PO BID, (Reported) Entered as Reported by: JAMILA GARDUNO on 11/26/13 1412 Oxycodone Hcl/Acetaminophen (Oxycodone-Acetaminophen 10-325) 1 Each Tablet, 1 EACH PO Q6H Prescribed by: ERLINDA LANGFORD on 09/08/14 1557 Prednisone (Prednisone) 20 Mg Tab, 40 MG PO DAILY Prescribed by: TAL JAMISON on 04/07/23 1656 Sulfamethoxazole/Trimethoprim (Bactrim Ds Tablet) 1 Each Tablet, 1 EACH PO BID Prescribed by: MUSHTAQ MAYO on 07/27/17 0310 Sulfamethoxazole/Trimethoprim (Bactrim Ds Tablet) 1 Each Tablet, 1 EACH PO BID Prescribed by: AISSATOU REDDY on 07/22/19 1344 Review of Systems Constitutional: No chills, No fever EENTM: no symptoms reported Respiratory: No cough, No short of breath Cardiovascular: No chest pain, No edema Gastrointestinal: No abdominal pain; diarrhea Genitourinary: see HPI Musculoskeletal: No back pain; joint pain Skin: No change in color, No lesions Psychiatric/Neurological: Denies Headache Past Xhjpinz-Mgnyjt-Cdelwi Hx Patient Social History Tobacco Use?: No Alcohol Use?: No Immunizations Up To Date Tetanus Booster (TDap): Less than 5yrs First/Initial COVID19 Vaccinat: 2020 Second COVID19 Vaccination [employer]: 2020 Third COVID19 Vaccination Date: 2021 Seasonal Allergies Seasonal Allergies: No Past Medical History Surgery/Hospitalization HX: HIV/AIDS Surgeries: Yes (FX JAW) Appendectomy, Gallbladder Respiratory: Yes Pulmonary Fibrosis Cardiac: Yes Syncope Neurological: No HIV/AIDS: Yes Genitourinary: No Gastrointestinal: Yes (HEP C) Chronic Constipation, Hepatitis Musculoskeletal: Yes (Chronic knee pain) Fibromyalgia, Chronic Back Pain Endocrine: No HEENT: No Cancer: No Psychosocial: Yes ADD/ADHD, Anxiety, Depression Integumentary: Yes (HX HERPES) Blood Disorders: No Family Medical History Diabetes Physical Exam Vital Signs - First Documented 05/19/23 14:15 Temp 37.9 Pulse 102 Resp 20 B/P (MAP) 134/93 (107) Pulse Ox 96 Capillary Refill : Height, Weight, BMI Height: 5'4.00" Weight: 150lbs. oz. 68.247353il; 20.00 BMI Method:Estimated General Appearance: WD/WN, no apparent distress HEENT: PERRL/EOMI, pharynx normal Neck: full range of motion, supple Respiratory: lungs clear, normal breath sounds Cardiovascular: regular rate, rhythm, no murmur Gastrointestinal: non tender, soft Extremities: non-tender, other (Arthritic nodule to the right great toe and to DIP of multiple fingers that are nontender currently) Neurologic/Psychiatric: alert, oriented x 3 Behavior/Eye Contact: cooperative, increased rate of speech Thoughts/Hallucinations: flight of ideas Skin: normal color, warm/dry Progress/Results/Core Measures Results/Orders Lab Results Laboratory Tests Test 05/19/23 14:15 05/19/23 14:33 Range/Units Urine Color YELLOW Urine Clarity CLEAR Urine pH 7.0 5-9 Urine Specific [place] 1.020 1.016-1.022 Urine Protein 2+ H NEGATIVE Urine Glucose (UA) NEGATIVE NEGATIVE Urine Ketones NEGATIVE NEGATIVE Urine Nitrite NEGATIVE NEGATIVE Urine Bilirubin NEGATIVE NEGATIVE Urine Urobilinogen 1.0 < = 1.0 MG/DL Urine Leukocyte Esterase NEGATIVE NEGATIVE Urine RBC (Auto) TRACE H NEGATIVE Urine RBC 0-2 /HPF Urine WBC NONE /HPF Urine Squamous Epithelial Cells NONE /HPF Urine Crystals NONE /LPF Urine Bacteria NEGATIVE /HPF Urine Casts NONE /LPF Urine Mucus NEGATIVE /LPF Urine Culture Indicated NO Urine Opiates Screen NEGATIVE NEGATIVE Urine Oxycodone Screen NEGATIVE NEGATIVE Urine Methadone Screen NEGATIVE NEGATIVE Urine Propoxyphene Screen NEGATIVE NEGATIVE Urine Barbiturates Screen NEGATIVE NEGATIVE Ur Tricyclic Antidepressants Screen NEGATIVE NEGATIVE Urine Phencyclidine Screen NEGATIVE NEGATIVE Urine Amphetamines Screen POSITIVE H NEGATIVE Urine Methamphetamines Screen POSITIVE H NEGATIVE Urine Benzodiazepines Screen NEGATIVE NEGATIVE Urine Cocaine Screen NEGATIVE NEGATIVE Urine Cannabinoids Screen NEGATIVE NEGATIVE White Blood Count 4.5 4.3-11.0 10^3/uL Red Blood Count 4.64 4.30-5.52 10^6/uL Hemoglobin 10.9 L 13.3-17.7 g/dL Hematocrit 35 L 40-54 % Mean Corpuscular Volume 76 L 80-99 fL Mean Corpuscular Hemoglobin 24 L 25-34 pg Mean Corpuscular Hemoglobin Concent 31 L 32-36 g/dL Red Cell Distribution Width 14.0 10.0-14.5 % Platelet Count 233 130-400 10^3/uL Mean Platelet Volume 12.1 9.0-12.2 fL Immature Granulocyte % (Auto) 0 % Neutrophils (%) (Auto) 49 42-75 % Lymphocytes (%) (Auto) 29 12-44 % Monocytes (%) (Auto) 21 H 0-12 % Eosinophils (%) (Auto) 0 0-10 % Basophils (%) (Auto) 1 0-10 % Neutrophils # (Auto) 2.2 1.8-7.8 10^3/uL Lymphocytes # (Auto) 1.3 1.0-4.0 10^3/uL Monocytes # (Auto) 1.0 0.0-1.0 10^3/uL Eosinophils # (Auto) 0.0 0.0-0.3 10^3/uL Basophils # (Auto) 0.0 0.0-0.1 10^3/uL Immature Granulocyte # (Auto) 0.0 0.0-0.1 10^3/uL Neutrophils % (Manual) 46 % Lymphocytes % (Manual) 26 % Monocytes % (Manual) 28 % Eosinophils % (Manual) 0 % Basophils % (Manual) 0 % Band Neutrophils 0 % Microcytosis SLIGHT Sodium Level 139 135-145 MMOL/L Potassium Level 4.0 3.6-5.0 MMOL/L Chloride Level 104 98-107 MMOL/L Carbon Dioxide Level 25 21-32 MMOL/L Anion Gap 10 5-14 MMOL/L Blood Urea Nitrogen 19 H 7-18 MG/DL Creatinine 0.91 0.60-1.30 MG/DL Estimat Glomerular Filtration Rate 98 BUN/Creatinine Ratio 21 Glucose Level 99 70-105 MG/DL Calcium Level 8.5 8.5-10.1 MG/DL Corrected Calcium 8.5 8.5-10.1 MG/DL Total Bilirubin 0.6 0.1-1.0 MG/DL Aspartate Amino Transf (AST/SGOT) 44 H 5-34 U/L Alanine Aminotransferase (ALT/SGPT) 32 0-55 U/L Alkaline Phosphatase 57 40-136 U/L Total Protein 7.3 6.4-8.2 GM/DL Albumin 4.0 3.2-4.5 GM/DL Salicylates Level < 5.0 L 5.0-20.0 MG/DL Acetaminophen Level < 10 L 10-30 UG/ML Serum Alcohol < 10 <10 MG/DL My Orders Orders - ERLINDA LANGFORD MD Olanzapine Orally Dissolve Tab (Zyprexa (05/19/23 14:15) Abdomen/Kub 1view (05/19/23 14:13) Ua Culture If Indicated (05/19/23 14:13) Cbc With Automated Diff (05/19/23 14:13) Comprehensive Metabolic Panel (05/19/23 14:13) Alcohol (05/19/23 14:13) Drug Screen Stat (Urine) (05/19/23 14:13) Acetaminophen (05/19/23 14:13) Salicylate (05/19/23 14:13) Ekg Tracing (05/19/23 14:13) Ed Iv/Invasive Line Start (05/19/23 14:13) Thyroid Analyzer (05/19/23 14:13) Monitor-Rhythm Ecg Trace Only (05/19/23 14:13) Bh Status Checks/Observation O Q15M (05/19/23 14:13) Manual Differential (05/19/23 14:33) Medications Given in ED Current Medications Medications Dose Ordered Sig/Marcela Route Start Time Stop Time Status Last Admin Dose Admin Olanzapine 5 mg ONCE ONCE PO 05/19/23 14:15 05/19/23 14:16 DC 05/19/23 14:19 5 MG Vital Signs/I&O 05/19/23 14:15 Temp 37.9 Pulse 102 Resp 20 B/P (MAP) 134/93 (107) Pulse Ox 96 Blood Pressure Mean: 107 Progress Progress Note : Progress Note Seen and evaluated. We will get psych screening work-up. The patient has agreed to work-up including CBC, CMP, UA, EKG and x-ray of the abdomen. We will of course get drug screen and get Tylenol, salicylate and alcohol level as well. Patient has known HIV has been well controlled. Monitor patient. Patient did except a Zyprexa Zydis 5 mg p.o. to help his mind slow down some. Differential diagnosis includes acute psychosis, electrolyte abnormality 1451: EKG nonconcerning. CBC shows normal white count with slightly low hemoglobin. UA nonconcerning for urinary tract infection. Monitor patient. 1517: Patient doing better and overall feels better. CMP grossly normal. X-ray reviewed by me and I see no foreign body on my interpretation. Radiology report agrees. Mental health screener is willing to take him back to his place. I will write prescription for Zyprexa and they will follow-up with his provider. Discharged with return precautions. Patient verbalized understanding of instructions and agreement with plan. Initial ECG Impression Date: May 19, 2023 Initial ECG Impression Time: 14:22 Initial ECG Rate: 91 Initial ECG Rhythm: Normal Sinus Comment Sinus rhythm with normal but rightward axis. Likely left atrial enlargement. No evidence of ST elevation [place]. Normal QT and QTc interval at 381 and 429 respectively. QRS duration normal. Interpreted by me. Diagnostic Imaging Diagonstic Imaging: Xray Plain Films/CT/US/NM/MRI: abdomen Comments [facility] [place], [place] NAME: KIMBERLY RIVERO [facility] REC#: [id number] PT STATUS: REG ER : 1965 PHYSICIAN: ERLINDA LANGFORD MD ADMIT DATE: 05/19/23/ER Draft Date of Exam:05/19/23 ABDOMEN/KUB 1VIEW INDICATION: Suspicion for rectal foreign body. FINDINGS: No radiopaque abdominopelvic foreign body. There are surgical clips at the gallbladder fossa. There is a mildly elevated fecal load, mild constipation could not be excluded. No impaction. No small bowel dilatation. IMPRESSION: No opaque foreign body identified, equivocal findings for mild constipation without yonis obstruction. Dictated on workstation # [id number] Dict: 05/19/23 1453 Trans: 05/19/23 1457 [id number] Interpreted by: MARIA C CELESTIN Electronically signed by: Reviewed: Reviewed by Me Departure Impression Primary Impression: Anxiety Additional Impression: Psychosis Qualified Codes: F29 - Unspecified psychosis not due to a substance or known physiological condition Disposition: 01 HOME, SELF-CARE Condition: Stable Departure-Patient Inst. Decision time for Depature: 15:18 Referrals: [facility] (PCP/Family) Primary Care Physician Patient Instructions: Acute Psychosis (DC), Anxiety, Adult (DC) Add. Discharge Instructions: All discharge instructions reviewed with patient and/or family. Voiced underst anding. Take your medications as prescribed. You may do better if you take that at nighttime so that you are not drowsy during the day. Follow-up with your mental health provider. Return for worse pain, fever, vomiting, weakness, breathing problems or other concerns as needed. Scripts Olanzapine (Olanzapine Odt) 5 Mg Tab.rapdis 5 MG PO DAILY for 30 Days, #30 TAB 0 Refills Prov: ERLINDA LANGFORD MD 05/19/23 ERLINDA LANGFORD MD May 19, 2023 14:45
[2023-05-19 14:48] LABS: CLARITY,URINE CLEAR; COLOR,URINE YELLOW; PROTEIN,URINE 2+ (NEGATIVE)
[2023-05-19 14:49] LABS: BACTERIA,URINE NEGATIVE /HPF; BILIRUBIN,URINE NEGATIVE (NEGATIVE); GLUCOSE, URINE (UA) NEGATIVE (NEGATIVE); KETONES,URINE NEGATIVE (NEGATIVE); LEUKOCYTE ESTERASE ,URINE NEGATIVE (NEGATIVE); NITRITE,URINE NEGATIVE (NEGATIVE); RBC,URINE 0-2 /HPF
[2023-05-19 14:52] LABS: CHLORIDE 104 MMOL/L (98-107); SODIUM 139 MMOL/L (135-145)
[2023-05-19 14:53] LABS: CALCIUM 8.5 MG/DL (8.5-10.1)
[2023-05-19 14:54] LABS: GLUCOSE 99 MG/DL (70-105)
[2023-05-19 14:55] LABS: TOTAL PROTEIN 7.3 GM/DL (6.4-8.2)
[2023-05-19 14:55] LABS: AMPHETAMINE SCREEN, URINE POSITIVE (NEGATIVE); BARBITURATE SCREEN URINE NEGATIVE (NEGATIVE); BENZODIAZEPINES SCREEN URINE NEGATIVE (NEGATIVE); CANNABINOID SCREEN, URINE NEGATIVE (NEGATIVE); COCAINE SCREEN URINE NEGATIVE (NEGATIVE); METHADONE STAT NEGATIVE (NEGATIVE); OPIATE SCREEN URINE NEGATIVE (NEGATIVE); OXYCODONE STAT NEGATIVE (NEGATIVE); PROPOXYPHENE STAT NEGATIVE (NEGATIVE); TRICYCLIC ANTIDEPRESSANTS SCRE NEGATIVE (NEGATIVE)
[2023-05-19 14:56] LABS: BILIRUBIN,TOTAL 0.6 MG/DL (0.1-1.0); CARBON DIOXIDE 25 MMOL/L (21-32)
--- NOTE | 2023-05-19 14:57 | Diagnostic Imaging Report ---
INDICATION: Suspicion for rectal foreign body. FINDINGS: No radiopaque abdominopelvic foreign body. There are surgical clips at the gallbladder fossa. There is a mildly elevated fecal load, mild constipation could not be excluded. No impaction. No small bowel dilatation. IMPRESSION: No opaque foreign body identified, equivocal findings for mild constipation without yonis obstruction. Dictated by: Dictated on workstation # [id number]
[2023-05-19 14:58] LABS: ALKALINE PHOSPHATASE 57 U/L (40-136); CREATININE SERUM 0.91 MG/DL (0.60-1.30); GFR ESTIMATED 98
[2023-05-19 15:00] LABS: BUN/CREATININE RATIO 21
[2023-05-19 15:01] LABS: ACETAMINOPHEN < 10 UG/ML (10-30); ALANINE AMINOTRANSFERASE 32 U/L (0-55); SALICYLATE < 5.0 MG/DL (5.0-20.0)
[2023-05-19 15:04] LABS: BAND NEUTROPHILS 0 %; BASOPHILS % (MANUAL) 0 %; EOSINOPHILS % (MANUAL) 0 %; LYMPHOCYTES % (MANUAL) 26 %; MICROCYTOSIS SLIGHT; MONOCYTES % (MANUAL) 28 %; NEUTROPHILS % (MANUAL) 46 %
[2023-05-19] MEDS ORDERED: OLAN5TAB23 PO (15:20)
[2023-05-19 15:21] LABS: TSH (THYROID ANALYZER) 0.86 UIU/ML (0.35-4.94)
[2023-05-19 15:25] VITALS: BP 134/93
== END 2023-05-19 15:25 | disposition home or self-care (01) ==
LOC: EDUNIT# 13:53 → ER 13:54
DX: F41.9 Anxiety disorder, unspecified (principal); F29 Unspecified psychosis not due to a substance or known physiological condition; B20 Human immunodeficiency virus [HIV] disease
CPT/HCPCS: 74018; 80053; 80306; 81000; 84443; 85007; 85027; 93005; 99284; G0480 ×3; 36415; 80320; 80329

== ENCOUNTER 2023-05-19 23:06 | Emergency (ER) | payer MEDICARE, MEDICAID ==
[~2023-05-19] VITALS: Ht 149 cm; Wt 45.0 kg
[~2023-05-19 23:06] MED LIST changes: +OLAN5TAB23 PO
--- NOTE | 2023-05-19 23:22 | ED General ---
General Chief Complaint: Lower Extremity Stated Complaint: TOE PAIN History of Present Illness Date Seen by Provider: May 19, 2023 Time Seen by Provider: 23:22 Initial Comments Marcel is a well-known to this ER - 58-year-old male with a history of HIV who presents by EMS with a chief complaint of bilateral foot pain. When I entered the room he was noted to be sleeping soundly on his left side. He was easily arousable. He has been walking around apparently according to EMS barefoot all over town in 100 degree weather. When I started to question him on HPI, review of systems he begins talking gibberish. When I correct him to speak to me so that I can understand him he tells me "my feet hurt". He has not taken any medications for the pain. He indicates that they are swollen (clearly they are not). When questioned further he closes his eyes and turns abruptly on his right side to go to sleep. He is very non compliant with history taking. VSS Timing/Duration: Other (unknown) Severity: Moderate Associated Systoms: Denies Symptoms Allergies and Home Medications Allergies Coded Allergies: codeine (Verified Allergy, Unknown, 02/25/23) hydrocodone (Verified Allergy, Unknown, 02/25/23) Patient Home Medication List Home Medication List Reviewed: Yes Albuterol Sulfate (Ventolin Hfa) 1 Puff Puff, 2 PUFF INH Q4H PRN for SHORTNESS OF BREATH Prescribed by: TAL JAMISON on 04/07/23 1656 Alprazolam (Xanax) 2 Mg Tablet, 2 MG PO HS, (Reported) Entered as Reported by: ALBERTO VERDE on 02/16/12 1619 Amphet Asp/Amphet/D-Amphet (Adderall 30 Mg Tablet) 30 Mg Tablet, 30 MG PO BID, (Reported) Entered as Reported by: ALBERTO VERDE on 02/16/12 1619 Azithromycin (Azithromycin) 250 Mg Tablet, 250 MG PO DAILY Prescribed by: AISSATOU REDDY on 10/30/17 1240 Cefdinir (Cefdinir) 300 Mg Capsule, 300 MG PO BID Prescribed by: AISSATOU REDDY on 10/30/17 1240 Cephalexin (Cephalexin) 500 Mg Tablet, 500 MG PO QID Prescribed by: AISSATOU REDDY on 07/22/19 1344 Doxycycline Hyclate (Doxycycline Hyclate) 100 Mg Tablet, 100 MG PO BID Prescribed by: AISSATOU REDDY on 12/27/20 1159 Doxycycline Monohydrate (Doxycycline Monohydrate) 100 Mg Tablet, 100 MG PO BID PRN Prescribed by: TAL JAMISON on 04/07/23 1708 Emtricitab/Rilpivirine/Tenofov (Complera Tablet) 1 Each Tablet, 1 EACH PO DAILY, (Reported) Entered as Reported by: ALBERTO VERDE on 07/20/13 1706 Meclizine HCl (Meclizine HCl) 25 Mg Tablet, 25 MG PO TID PRN for DIZZINESS Prescribed by: AISSATOU REDDY on 10/18/18 1214 Mupirocin (Mupirocin) 1 Gm Oin.pf.marissa, 1 GM TP BID Prescribed by: REJI MANN on 02/04/21 1348 Olanzapine (Olanzapine Odt) 5 Mg Tab.rapdis, 5 MG PO DAILY Prescribed by: ERLINDA LANGFORD on 05/19/23 1520 Ondansetron (Ondansetron Odt) 4 Mg Tab.rapdis, 4 MG PO Q6H PRN for NAUSEA/VOMITING Prescribed by: GERRI SHAH on 12/07/20 2114 Ondansetron (Ondansetron Odt) 4 Mg Tab.rapdis, 4 MG SL Q8H PRN for NAUSEA/VOMITING Prescribed by: REJI MANN on 04/08/23 1723 Oxycodone HCl/Acetaminophen (Oxycodone-Acetaminophen 5-325) 1 Each Tablet, 1 EACH PO Q6H PRN for PAIN Prescribed by: MUSHTAQ MAYO on 07/27/17 0310 Oxycodone Hcl (Oxycontin) 60 Mg Tab.sr.12h, 60 MG PO BID, (Reported) Entered as Reported by: JAMILA GARDUNO on 11/26/13 1412 Oxycodone Hcl/Acetaminophen (Oxycodone-Acetaminophen 10-325) 1 Each Tablet, 1 EACH PO Q6H Prescribed by: ERLINDA LANGFORD on 09/08/14 1557 Prednisone (Prednisone) 20 Mg Tab, 40 MG PO DAILY Prescribed by: TAL JAMISON on 04/07/23 1656 Sulfamethoxazole/Trimethoprim (Bactrim Ds Tablet) 1 Each Tablet, 1 EACH PO BID Prescribed by: MUSHTAQ MAYO on 07/27/17 0310 Sulfamethoxazole/Trimethoprim (Bactrim Ds Tablet) 1 Each Tablet, 1 EACH PO BID Prescribed by: AISSATOU REDDY on 07/22/19 1344 Review of Systems Review of Systems Constitutional: see HPI Unable to obtain because he is speaking gibberish - consistent with intoxication on methamphetamine Past Drrqrmj-Ptoove-Aeqwgl Hx Immunizations Up To Date Tetanus Booster (TDap): Less than 5yrs First/Initial COVID19 Vaccinat: 2020 Second COVID19 Vaccination [employer]: 2020 Third COVID19 Vaccination Date: 2021 Seasonal Allergies Seasonal Allergies: No Past Medical History Surgery/Hospitalization HX: HIV/AIDS Surgeries: Yes (FX JAW) Appendectomy, Gallbladder Respiratory: Yes Pulmonary Fibrosis Cardiac: Yes Syncope Neurological: No HIV/AIDS: Yes Genitourinary: No Gastrointestinal: Yes (HEP C) Chronic Constipation, Hepatitis Musculoskeletal: Yes (Chronic knee pain) Fibromyalgia, Chronic Back Pain Endocrine: No HEENT: No Cancer: No Psychosocial: Yes ADD/ADHD, Anxiety, Depression Integumentary: Yes (HX HERPES) Blood Disorders: No Family Medical History Diabetes Physical Exam Vital Signs Vital Signs - First Documented 05/19/23 23:15 Temp 37.0 Pulse 86 Resp 20 B/P (MAP) 125/91 (102) Pulse Ox 98 O2 Delivery Room Air Capillary Refill : Height, Weight, BMI Height: 5'4.00" Weight: 150lbs. oz. 68.553641fn; 20.00 BMI Method:Estimated General Appearance: No Apparent Distress, Chronically ill, Thin Eyes: Bilateral Eye Normal Inspection, Bilateral Eye PERRL, Bilateral Eye EOMI Respiratory: No Accessory Muscle Use, No Respiratory Distress Cardiovascular: Regular Rate, Rhythm (2+ radial pulses bilaterally) Extremity: Normal Capillary Refill, Normal Inspection, Normal Range of Motion, Non Tender, Other (no pedal edema or obvious deformity) Neurologic/Psychiatric: Alert, No Motor/Sensory Deficits, Other (obviously intoxicated on methamphetamine or some other mind altering substance) Skin: Normal Color, Warm/Dry Progress/Results/Core Measures Suspected Sepsis SIRS Temperature: Pulse: Respiratory Rate: Blood Pressure / Mean: Results/Orders My Orders Orders - REJI MANN MD Ibuprofen Tablet (Ibuprofen Tablet) (8/23/23 00:00) Medications Given in ED Current Medications Medications Dose Ordered Sig/Marcela Route Start Time Stop Time Status Last Admin Dose Admin Ibuprofen 400 mg ONCE ONCE PO 05/20/23 00:00 05/20/23 00:01 DC 05/19/23 23:55 400 MG Vital Signs/I&O 05/19/23 05/20/23 23:15 00:02 Temp 37.0 37.0 Pulse 86 86 Resp 20 20 B/P (MAP) 125/91 (102) 125/91 Pulse Ox 98 98 O2 Delivery Room Air Room Air Capillary Refill : Departure Impression Primary Impression: Foot pain, bilateral Additional Impressions: Intoxication by drug Qualified Codes: F19.921 - Other psychoactive substance use, unspecified with intoxication with delirium History of HIV infection Disposition: HOME, SELF-CARE Condition: Stable Departure-Patient Inst. Decision time for Depature: 23:59 Referrals: [facility] (PCP/Family) Primary Care Physician Patient Instructions: Substance Use Disorder ED Add. Discharge Instructions: Please follow[facility] with [facility]. Take 400 mg of ibuprofen every 6 hours with food as needed for pain. Return to the emergency department for any new, concerning or emergent complaints. Copy Copies To 1: MARILEE MERRITT KATHRYN M MD May 19, 2023 23:22
[2023-05-20] MEDS ORDERED: IBUPROFEN 200 MG TABLET PO ONE
[2023-05-20 00:02] VITALS: BP 125/91
== END 2023-05-20 00:02 | disposition home or self-care (01) ==
LOC: EDUNIT# 23:06 → ER 23:07
DX: M79.671 Pain in right foot (principal); M79.672 Pain in left foot; F15.129 Other stimulant abuse with intoxication, unspecified; B20 Human immunodeficiency virus [HIV] disease
CPT/HCPCS: 99283

== ENCOUNTER → 2023-06-04 | Outpatient (CLI) | payer SELFPAY ==
[~2023-06-04] MED LIST changes: -MECL-149 PO; +MECL-291 PO
== END ==
LOC: FNS 12:51
PROVIDERS: ATTEND Emergency Medicine
DX: Z02.89 Encounter for other administrative examinations (principal)

== ENCOUNTER 2023-07-14 15:31 | Emergency (ER) | payer MEDICARE, MEDICAID ==
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
== END 2023-07-14 15:54 | disposition left against medical advice (07) ==
LOC: EDUNIT# 15:31 → ER 15:33
DX: F15.90 Other stimulant use, unspecified, uncomplicated (principal); R45.851 Suicidal ideations
CPT/HCPCS: 99281

== ENCOUNTER 2023-07-15 09:04 | Emergency (ER) | payer MEDICARE, MEDICAID ==
[2023-07-15 09:04] VITALS: BP 154/115
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
[2023-07-15 10:02] LABS: EOSINOPHILS % (AUTO) 0 % (0-10)
[2023-07-15 10:03] LABS: BASOPHILS # (AUTO) 0.1 10^3/uL (0.0-0.1); BASOPHILS % (AUTO) 1 % (0-10); HEMATOCRIT 39 % (40-54); HEMOGLOBIN 12.4 g/dL (13.3-17.7); LYMPHOCYTES # (AUTO) 1.1 10^3/uL (1.0-4.0); LYMPHOCYTES % (AUTO) 12 % (12-44); MEAN CORPUSCULAR HEMOGLOBIN 24 pg (25-34); MEAN CORPUSCULAR HGB CONC 32 g/dL (32-36); MEAN CORPUSCULAR VOLUME 75 fL (80-99); MONOCYTES % (AUTO) 10 % (0-12); NEUTROPHILS # (AUTO) 7.1 10^3/uL (1.8-7.8); NEUTROPHILS % (AUTO) 77 % (42-75); PLATELET COUNT 246 10^3/uL (130-400); WHITE BLOOD COUNT 9.2 10^3/uL (4.3-11.0)
[2023-07-15 10:07] LABS: ALBUMIN 4.5 GM/DL (3.2-4.5); CHLORIDE 105 MMOL/L (98-107); POTASSIUM 3.5 MMOL/L (3.6-5.0); SMEAR SCAN COMMENT YES; SODIUM 142 MMOL/L (135-145)
[2023-07-15 10:09] LABS: CALCIUM 9.5 MG/DL (8.5-10.1)
[2023-07-15 10:10] LABS: GLUCOSE 124 MG/DL (70-105); TOTAL PROTEIN 8.5 GM/DL (6.4-8.2)
[2023-07-15 10:11] LABS: CARBON DIOXIDE 22 MMOL/L (21-32)
[2023-07-15 10:12] LABS: BILIRUBIN,TOTAL 1.1 MG/DL (0.1-1.0)
[2023-07-15 10:14] LABS: ALKALINE PHOSPHATASE 79 U/L (40-136); CREATININE SERUM 1.44 MG/DL (0.60-1.30); GFR ESTIMATED 56
[2023-07-15 10:14] LABS: AMPHETAMINE SCREEN, URINE POSITIVE (NEGATIVE); BARBITURATE SCREEN URINE NEGATIVE (NEGATIVE); CANNABINOID SCREEN, URINE NEGATIVE (NEGATIVE); COCAINE SCREEN URINE NEGATIVE (NEGATIVE); METHADONE STAT NEGATIVE (NEGATIVE); OPIATE SCREEN URINE NEGATIVE (NEGATIVE); OXYCODONE STAT NEGATIVE (NEGATIVE); PROPOXYPHENE STAT NEGATIVE (NEGATIVE); TRICYCLIC ANTIDEPRESSANTS SCRE NEGATIVE (NEGATIVE)
[2023-07-15 10:15] LABS: ACETAMINOPHEN < 10 UG/ML (10-30); BUN/CREATININE RATIO 32
[2023-07-15 10:16] LABS: CLARITY,URINE CLEAR; COLOR,URINE YELLOW; GLUCOSE, URINE (UA) TRACE (NEGATIVE); KETONES,URINE 1+ (NEGATIVE); PROTEIN,URINE 3+ (NEGATIVE)
[2023-07-15 10:17] LABS: ALANINE AMINOTRANSFERASE 103 U/L (0-55); SALICYLATE < 5.0 MG/DL (5.0-20.0)
[2023-07-15 10:17] LABS: AMORPHOUS SEDIMENT,UR MOD AMOR URATES /LPF; BACTERIA,URINE TRACE /HPF; BILIRUBIN,URINE 1+ (NEGATIVE); LEUKOCYTE ESTERASE ,URINE NEGATIVE (NEGATIVE); NITRITE,URINE NEGATIVE (NEGATIVE); RBC,URINE 0-2 /HPF; WBC,URINE 0-2 /HPF
== END 2023-07-15 13:40 | disposition short-term general hospital (02) ==
LOC: EDUNIT# 09:06 → ER 09:08
DX: Z13.30 Encounter for screening examination for mental health and behavioral disorders, unspecified (principal); F15.10 Other stimulant abuse, uncomplicated; R00.0 Tachycardia, unspecified; Z20.822 Contact with and (suspected) exposure to COVID-19
CPT/HCPCS: 80053; 80306; 81000; 85025; 87636; 93005; 99283; G0480 ×3; 36415; 80320; 80329

== ENCOUNTER 2023-08-29 17:52 | Emergency (ER) | payer MEDICARE, MEDICAID ==
[~2023-08-29] VITALS: Ht 170.2 cm; Wt 63.5 kg
[2023-08-29 17:54] VITALS: BP 111/81
--- NOTE | 2023-08-29 18:09 | ED General ---
General Chief Complaint: General Problems/Pain Stated Complaint: NOT FEELING WELL Nursing Triage Note: PT AMB TO RM 9 BY [facility] WITH COMPLAINT OF NOT FEELING WELL. PT STATES HE IS CURRENTLY HOMELESS, HAS BEEN WALKING AROUND ALL DAY. STATES HAS HAD NOTHING TO EAT OR DRINK IN 3 DAYS. DENIES PAIN. LAST USED METH 2 DAYS AGO. Source of Information: Patient Exam Limitations: No Limitations History of Present Illness Date Seen by Provider: Aug 29, 2023 Time Seen by Provider: 18:09 Initial Comments Patient is a 58-year-old male well-known to this emergency department who arrives by ambulance chief complaint of generalized weakness and concern for dehydration. He states that he is homeless, recently released from custodial 2 days ago. States that he has not had anything of substance to eat or drink in the last 2 days. He has a history of chronic mental health issues he states currently on his medications. He is also AIDS positive. Denies fevers, chills, productive cough. No shortness of breath. No issues with bowel or bladder. Just generalized weakness, depression due to homelessness. Asking for something to eat. Timing/Duration: 1-2 Days Severity: Moderate Associated Systoms: Malaise, Weakness Allergies and Home Medications Allergies Coded Allergies: codeine (Verified Allergy, Unknown, 02/25/23) hydrocodone (Verified Allergy, Unknown, 02/25/23) Patient Home Medication List Home Medication List Reviewed: Yes Albuterol Sulfate (Ventolin Hfa) 1 Puff Puff, 2 PUFF INH Q4H PRN for SHORTNESS OF BREATH Prescribed by: TAL JAMISON on 04/07/23 1656 Alprazolam (Xanax) 2 Mg Tablet, 2 MG PO HS, (Reported) Entered as Reported by: ALBERTO VERDE on 02/16/12 1619 Amphet Asp/Amphet/D-Amphet (Adderall 30 Mg Tablet) 30 Mg Tablet, 30 MG PO BID, (Reported) Entered as Reported by: ALBERTO VERDE on 02/16/12 1619 Azithromycin (Azithromycin) 250 Mg Tablet, 250 MG PO DAILY Prescribed by: AISSATOU REDDY on 10/30/17 1240 Cefdinir (Cefdinir) 300 Mg Capsule, 300 MG PO BID Prescribed by: AISSATOU REDDY on 10/30/17 1240 Cephalexin (Cephalexin) 500 Mg Tablet, 500 MG PO QID Prescribed by: AISSATOU REDDY on 07/22/19 1344 Doxycycline Hyclate (Doxycycline Hyclate) 100 Mg Tablet, 100 MG PO BID Prescribed by: AISSATOU REDDY on 12/27/20 1159 Doxycycline Monohydrate (Doxycycline Monohydrate) 100 Mg Tablet, 100 MG PO BID PRN Prescribed by: TAL JAMISON on 04/07/23 1708 Emtricitab/Rilpivirine/Tenofov (Complera Tablet) 1 Each Tablet, 1 EACH PO DAILY, (Reported) Entered as Reported by: ALBERTO VERDE on 07/20/13 1706 Meclizine HCl (Meclizine HCl) 25 Mg Tablet, 25 MG PO TID PRN for DIZZINESS Prescribed by: AISSATOU REDDY on 10/18/18 1214 Mupirocin (Mupirocin) 1 Gm Oin.pf.marissa, 1 GM TP BID Prescribed by: REJI MANN on 02/04/21 1348 Olanzapine (Olanzapine Odt) 5 Mg Tab.rapdis, 5 MG PO DAILY Prescribed by: ERLINDA LANGFORD on 05/19/23 1520 Ondansetron (Ondansetron Odt) 4 Mg Tab.rapdis, 4 MG PO Q6H PRN for NAUSEA/VOMITING Prescribed by: GERRI SHAH on 12/07/20 2114 Ondansetron (Ondansetron Odt) 4 Mg Tab.rapdis, 4 MG SL Q8H PRN for NAUSEA/VOMITING Prescribed by: REJI MANN on 04/08/23 1723 Oxycodone HCl/Acetaminophen (Oxycodone-Acetaminophen 5-325) 1 Each Tablet, 1 EACH PO Q6H PRN for PAIN Prescribed by: MUSHTAQ MAYO on 07/27/17 0310 Oxycodone Hcl (Oxycontin) 60 Mg Tab.sr.12h, 60 MG PO BID, (Reported) Entered as Reported by: JAMILA GARDUNO on 11/26/13 1412 Oxycodone Hcl/Acetaminophen (Oxycodone-Acetaminophen 10-325) 1 Each Tablet, 1 EACH PO Q6H Prescribed by: ERLINDA LANGFORD on 09/08/14 1557 Prednisone (Prednisone) 20 Mg Tab, 40 MG PO DAILY Prescribed by: TAL JAMISON on 04/07/23 1656 Sulfamethoxazole/Trimethoprim (Bactrim Ds Tablet) 1 Each Tablet, 1 EACH PO BID Prescribed by: MUSHTAQ MAYO on 07/27/17 0310 Sulfamethoxazole/Trimethoprim (Bactrim Ds Tablet) 1 Each Tablet, 1 EACH PO BID Prescribed by: AISSATOU REDDY on 07/22/19 1344 Review of Systems Review of Systems Constitutional: see HPI EENTM: no symptoms reported Respiratory: no symptoms reported Gastrointestinal: no symptoms reported Genitourinary: no symptoms reported Musculoskeletal: no symptoms reported Skin: no symptoms reported Psychiatric/Neurological: Weakness (Generalized weakness) Past Mucvzsv-Twzldh-Rjriuk Hx Patient Social History Tobacco Use?: No Use of E-Cig and/or Vaping dev: No Substance use?: Yes Substance type: Methamphetamine Alcohol Use?: No Pt feels they are or have been: No Immunizations Up To Date Tetanus Booster (TDap): Less than 5yrs First/Initial COVID19 Vaccinat: 2020 Second COVID19 Vaccination Kodak: 2020 Third COVID19 Vaccination Date: 2021 Seasonal Allergies Seasonal Allergies: No Past Medical History Surgery/Hospitalization HX: HIV/AIDS Surgeries: Yes (FX JAW) Appendectomy, Gallbladder Respiratory: Yes Pulmonary Fibrosis Cardiac: Yes Syncope Neurological: No Reproductive Disorders: No Sexually Transmitted Disease: Yes (HERPES) HIV/AIDS: Yes (HEP C ALSO) Genitourinary: No Gastrointestinal: Yes (HEP C) Chronic Constipation, Hepatitis Musculoskeletal: Yes (Chronic knee pain) Fibromyalgia, Chronic Back Pain Endocrine: No HEENT: No Cancer: No Psychosocial: Yes ADD/ADHD, Anxiety, Depression Integumentary: Yes (HX HERPES) Blood Disorders: No Family Medical History Diabetes Physical Exam Vital Signs Vital Signs - First Documented 08/29/23 17:54 Pulse 80 Resp 16 B/P (MAP) 111/81 (91) Pulse Ox 99 Capillary Refill : Height, Weight, BMI Height: 5'4.00" Weight: 150lbs. oz. 68.763391yt; 21.00 BMI Method:Estimated General Appearance: Anxious, Chronically ill, Thin Eyes: Bilateral Eye Normal Inspection Respiratory: Lungs Clear, Normal Breath Sounds, No Accessory Muscle Use, No Respiratory Distress Cardiovascular: Regular Rate, Rhythm Gastrointestinal: Non Tender, Soft Extremity: Normal Inspection, Normal Range of Motion Neurologic/Psychiatric: Alert, Oriented x3 Skin: Normal Color, Warm/Dry Progress/Results/Core Measures Suspected Sepsis SIRS Temperature: Pulse: 80 Respiratory Rate: 16 Blood Pressure 111 /81 Mean: 91 Results/Orders Lab Results Laboratory Tests Test 08/29/23 18:15 Range/Units Glucometer 74 70-110 MG/DL My Orders Orders - REJI MANN MD Accucheck Stat ONCE (08/29/23 18:13) General/Regular (08/29/23 Dinner) Vital Signs/I&O 08/29/23 17:54 Pulse 80 Resp 16 B/P (MAP) 111/81 (91) Pulse Ox 99 Capillary Refill : Blood Pressure Mean: 91 Progress Note : Time: 18:50 Progress Note Patient seen and evaluated by me. Evaluation today includes history and physical exam. Pertinent physical exam findings thin, chronically ill appearing male who is tearful and anxious due to his current social situation of emelina elessness. Does not appear intoxicated. Answering questions appropriately following commands. Exam is generally unremarkable for any acute findings. Heart is regular, lungs are clear. He is afebrile. Differential diagnosis dehydration, hypoglycemia, malnourishment Patient's blood sugar is assessed here in the emergency room it is 74. His vital signs are stable. No clinical indication at this time for laboratory evaluation or imaging. The patient actually request that no blood be taken from him. His pulse ox is in the 99% range on room air. Mentating fine. Offered a sandwich tray from the emergency department and a warm blanket. No other concerning findings to warrant further evaluation in the emergency room. This patient's social determinants of health are significant in impacting his overall health. Will be discharged. Departure Impression Primary Impression: General medical exam Additional Impression: Homelessness Disposition: 01 HOME, SELF-CARE Condition: Stable Departure-Patient Inst. Decision time for Depature: 18:53 Referrals: [facility] ([facility]Family) Primary Care Physician Patient Instructions: OUTPT MENTAL HEALTH SERVICES Add. Discharge Instructions: You should follow-up with [facility] health as they have multiple resources to assist with homelessness. Continue your mental health medications as prescribed. Return to the emergency department for any new, concerning/emergent complaints. Copy Copies To 1: MARILEE MERRITT KATHRYN M MD Aug 29, 2023 18:09
== END 2023-08-29 19:16 | disposition home or self-care (01) ==
LOC: EDUNIT# 17:52 → ER 17:54
DX: Z00.00 Encounter for general adult medical examination without abnormal findings (principal); Z59.00 Homelessness unspecified
CPT/HCPCS: 82947

== ENCOUNTER 2023-08-30 22:03 | Emergency (ER) | payer MEDICARE, MEDICAID ==
--- NOTE | 2023-08-30 22:38 | ED General ---
General Chief Complaint: General Problems/Pain Stated Complaint: NOT FEELING WELL Nursing Triage Note: PT AMB TO RM 6 ACCOMPANIED BY EMS. PT REPORTS USING METH "MANY TIMES" TODAY. Source of Information: Patient Exam Limitations: Intoxication History of Present Illness Date Seen by Provider: Aug 30, 2023 Time Seen by Provider: 22:20 Initial Comments Patient is a 58-year-old male, presents to the emergency department by EMS chief complaint of having used methamphetamine multiple times today and being hungry. He has a history of homelessness as well as HIV/AIDS. He was in the emergency department last night with similar complaints of being hungry. He is much different this evening than he was yesterday. Yesterday he appeared sober, today he is obviously intoxicated on methamphetamine with pressured speech, erratic speech, agitation. He is pleasant and conversant but does not make much sense. He is upset that the [employer] [facility] is closed on the weekend. Said that yesterday the [place] which she received was the best food he is ever had. No complaints of illness. Severity: Moderate Associated Systoms: Other (Hungry) Allergies and Home Medications Allergies Coded Allergies: codeine (Verified Allergy, Unknown, 02/25/23) hydrocodone (Verified Allergy, Unknown, 02/25/23) Patient Home Medication List Home Medication List Reviewed: Yes Albuterol Sulfate (Ventolin Hfa) 1 Puff Puff, 2 PUFF INH Q4H PRN for SHORTNESS OF BREATH Prescribed by: TAL JAMISON on 04/07/23 1656 Alprazolam (Xanax) 2 Mg Tablet, 2 MG PO HS, (Reported) Entered as Reported by: ALBERTO VERDE on 02/16/12 1619 Amphet Asp/Amphet/D-Amphet (Adderall 30 Mg Tablet) 30 Mg Tablet, 30 MG PO BID, (Reported) Entered as Reported by: ALBERTO VERDE on 02/16/12 1619 Azithromycin (Azithromycin) 250 Mg Tablet, 250 MG PO DAILY Prescribed by: AISSATOU REDDY on 10/30/17 1240 Cefdinir (Cefdinir) 300 Mg Capsule, 300 MG PO BID Prescribed by: AISSATOU REDDY on 10/30/17 1240 Cephalexin (Cephalexin) 500 Mg Tablet, 500 MG PO QID Prescribed by: AISSATOU REDDY on 07/22/19 1344 Doxycycline Hyclate (Doxycycline Hyclate) 100 Mg Tablet, 100 MG PO BID Prescribed by: AISSATOU REDDY on 12/27/20 1159 Doxycycline Monohydrate (Doxycycline Monohydrate) 100 Mg Tablet, 100 MG PO BID PRN Prescribed by: TAL JAMISON on 04/07/23 1708 Emtricitab/Rilpivirine/Tenofov (Complera Tablet) 1 Each Tablet, 1 EACH PO DAILY, (Reported) Entered as Reported by: ALBERTO VERDE on 07/20/13 1706 Meclizine HCl (Meclizine HCl) 25 Mg Tablet, 25 MG PO TID PRN for DIZZINESS Prescribed by: AISSATOU REDDY on 10/18/18 1214 Mupirocin (Mupirocin) 1 Gm Oin.pf.marissa, 1 GM TP BID Prescribed by: REJI MANN on 02/04/21 1348 Olanzapine (Olanzapine Odt) 5 Mg Tab.rapdis, 5 MG PO DAILY Prescribed by: ERLINDA LANGFORD on 05/19/23 1520 Ondansetron (Ondansetron Odt) 4 Mg Tab.rapdis, 4 MG PO Q6H PRN for NAUSEA/VOMITING Prescribed by: GERRI SHAH on 12/07/20 2114 Ondansetron (Ondansetron Odt) 4 Mg Tab.rapdis, 4 MG SL Q8H PRN for NAUSEA/VOMITING Prescribed by: REJI MANN on 04/08/23 1723 Oxycodone HCl/Acetaminophen (Oxycodone-Acetaminophen 5-325) 1 Each Tablet, 1 EACH PO Q6H PRN for PAIN Prescribed by: MUSHTAQ MAYO on 07/27/17 0310 Oxycodone Hcl (Oxycontin) 60 Mg Tab.sr.12h, 60 MG PO BID, (Reported) Entered as Reported by: JAMILA GARDUNO on 11/26/13 1412 Oxycodone Hcl/Acetaminophen (Oxycodone-Acetaminophen 10-325) 1 Each Tablet, 1 EACH PO Q6H Prescribed by: ERLINDA LANGFORD on 09/08/14 1557 Prednisone (Prednisone) 20 Mg Tab, 40 MG PO DAILY Prescribed by: TAL JAMISON on 04/07/23 1656 Sulfamethoxazole/Trimethoprim (Bactrim Ds Tablet) 1 Each Tablet, 1 EACH PO BID Prescribed by: MUSHTAQ MAYO on 07/27/17 0310 Sulfamethoxazole/Trimethoprim (Bactrim Ds Tablet) 1 Each Tablet, 1 EACH PO BID Prescribed by: AISSATOU REDDY on 07/22/19 1344 Review of Systems Review of Systems Constitutional: see HPI Gastrointestinal: other (Hungry) Review of systems difficult to obtain secondary to his methamphetamine intoxication Past Nwsslee-Neohms-Qrcest Hx Immunizations Up To Date Tetanus Booster (TDap): Less than 5yrs First/Initial COVID19 Vaccinat: 2020 Second COVID19 Vaccination Kodak: 2020 Third COVID19 Vaccination Date: 2021 Seasonal Allergies Seasonal Allergies: No Past Medical History Surgery/Hospitalization HX: HIV/AIDS Surgeries: Yes (FX JAW) Appendectomy, Gallbladder Respiratory: Yes Pulmonary Fibrosis Cardiac: Yes Syncope Neurological: No Reproductive Disorders: No Sexually Transmitted Disease: Yes (HERPES) HIV/AIDS: Yes (HEP C ALSO) Genitourinary: No Gastrointestinal: Yes (HEP C) Chronic Constipation, Hepatitis Musculoskeletal: Yes (Chronic knee pain) Fibromyalgia, Chronic Back Pain Endocrine: No HEENT: No Cancer: No Psychosocial: Yes ADD/ADHD, Anxiety, Depression Integumentary: Yes (HX HERPES) Blood Disorders: No Family Medical History Diabetes Physical Exam Vital Signs Vital Signs - First Documented 08/30/23 22:05 Pulse 105 Resp 22 B/P (MAP) 127/108 (114) Pulse Ox 96 O2 Delivery Room Air Capillary Refill : Less Than 3 Seconds Height, Weight, BMI Height: 5'4.00" Weight: 150lbs. oz. 68.084273nx; 21.00 BMI Method:Estimated General Appearance: No Apparent Distress, Chronically ill, Thin Eyes: Bilateral Eye Normal Inspection Respiratory: No Accessory Muscle Use, No Respiratory Distress Extremity: Normal Range of Motion Neurologic/Psychiatric: Alert, Oriented x3, Other (Pressured speech, erratic speech, talking to himself in the room. No obvious focal motor neurodeficit) Skin: Normal Color Progress/Results/Core Measures Suspected Sepsis SIRS Temperature: Pulse: 105 Respiratory Rate: 22 Blood Pressure 127 /108 Mean: 114 Results/Orders Vital Signs/I&O 08/30/23 22:05 Pulse 105 Resp 22 B/P (MAP) 127/108 (114) Pulse Ox 96 O2 Delivery Room Air Capillary Refill : Less Than 3 Seconds Blood Pressure Mean: 114 Progress Note : Time: 22:42 Progress Note Patient seen and evaluated by me. Evaluation today includes history and physical exam. Pertinent physical exam findings, chronically ill-appearing very thin almost cachectic in no significant distress. Vital signs reveal tachycardia consistent with methamphetamine intoxication, normal blood pressure, normal respiratory rate. He is afebrile. He is awake, alert, pressured speech, erratic/agitated. No homicidal or suicidal thoughts. He does appear to be responding to internal stimuli as he is talking to himself, his hand in the wall. Grateful for a sack lunch. No complaints of illness. Differential diagnosis homelessness, methamphetamine intoxication Patient is given his sack lunch. No concerning findings that would require laboratory evaluation or imaging. Chronic homelessness. Referred back to [facility], social director for further aid and assistance. Departure Impression Primary Impression: Methamphetamine intoxication Disposition: 01 HOME, SELF-CARE Condition: Stable Departure-Patient Inst. Decision time for Depature: 22:36 Referrals: [facility] (PCP/Family) Primary Care Physician Patient Instructions: OUTPT MENTAL HEALTH SERVICES Add. Discharge Instructions: You have got to try and stop using methamphetamine. Unfortunately hunger is not an emergency, we cannot continue to see you just for sandwiches. Follow-up with [facility], [place] so that you have some options on the weekend when the [employer] is closed. Copy Copies To 1: MARILEE MERRITT KATHRYN M MD Aug 30, 2023 22:38
[2023-08-30 22:42] VITALS: BP 127/108
== END 2023-08-30 23:02 | disposition home or self-care (01) ==
LOC: EDUNIT# 22:03 → ER 22:04
DX: F15.129 Other stimulant abuse with intoxication, unspecified (principal)
CPT/HCPCS: 99283

== ENCOUNTER 2023-09-04 17:07 | Emergency (ER) | payer MEDICARE, MEDICAID ==
[~2023-09-04] VITALS: Ht 170.2 cm; Wt 61.6 kg
[2023-09-04 17:14] VITALS: BP 154/107
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
--- NOTE | 2023-09-04 18:00 | Diagnostic Imaging Report ---
INDICATION: Knee pain. Three views were obtained. FINDINGS: The alignment is normal. There is no fracture or dislocation. Soft tissues are unremarkable. There is no joint effusion. IMPRESSION: No focal abnormality in the right knee. Dictated by: Dictated on workstation # [id number]
== END 2023-09-04 18:41 | disposition home or self-care (01) ==
LOC: EDUNIT# 17:07 → ER 17:09
DX: M25.561 Pain in right knee (principal); V03.99XA Pedestrian with other conveyance injured in collision with car, pick-up truck or van, unspecified whether traffic or nontraffic accident, initial encounter; Y93.01 Activity, walking, marching and hiking; Y92.410 Unspecified street and highway as the place of occurrence of the external cause
CPT/HCPCS: 73562

== ENCOUNTER 2023-09-05 12:26 | Emergency (ER) | payer MEDICARE, MEDICAID ==
--- NOTE | 2023-09-05 12:44 | ED Psychosocial ---
General Chief Complaint: Psych/Social Disorder Stated Complaint: PSYCH Nursing Triage Note: PT ARRIVED BY EMS, PT STATES HAVING HALLUCINATIONS. STATES WAS GOING TO WALK OUT IN FRONT OF A CAR, PT STATES NEEDS HELP Source: patient Exam Limitations: no limitations (TOMY KARIMI APRN) History of Present Illness Date Seen by Provider: Sep 05, 2023 Time Seen by Provider: 12:43 Initial Comments 58-year-old male presents the ER via EMS with reports of mental health concerns. He states that today he has been doing stupid things. Reports that he walked into a store and started eating food then walked out without pain. He also went to a restaurant, thought he was at his parents house, ate and then walked out again without pain. Police were called to the store after he walked out without paying. They did not press charges. Patient reports that when he arrived to the ER he became suicidal. He reports that he is suicidal because he thinks he will be kicked out of the ER and he does not have anywhere to go. He states that his plan is to find a gun and kill himself. He states that he knows someone who has a gun who would give it to him. States that this person would like to see him , and states that he would shoot himself in front of this person. He states that his other plan would be to gather a bunch of pills, states that he would take pills from people he knows. His last plan is to go to the dope house, and get a bunch of dope and eat it all. Past medical history includes HIV/AIDS. Patient is homeless. Patient has presented to this ER multiple times. Patient is also reporting that he is hungry and requesting food. Patient denies any physical complaints. Patient regularly uses meth, states he is uncertain the last time he used it. Denies tobacco, alcohol, other drug use. He states that he is supposed to take Zyprexa, states he has not been taking it for a long time. He also gets an injection for his HIV every 3 month s, last injection was 3 months ago. Patient was admitted to [facility] in Jun 2023 for mental health. He was on involuntary hold at that time. (TOMY KARIMI APRN) Allergies and Home Medications Allergies Coded Allergies: codeine (Verified Allergy, Unknown, 02/25/23) hydrocodone (Verified Allergy, Unknown, 02/25/23) Patient Home Medication List Home Medication List Reviewed: Yes (TOMY KARIMI APRN) Albuterol Sulfate (Ventolin Hfa) 1 Puff Puff, 2 PUFF INH Q4H PRN for SHORTNESS OF BREATH Prescribed by: TAL JAMISON on 04/07/23 1656 Alprazolam (Xanax) 2 Mg Tablet, 2 MG PO HS, (Reported) Entered as Reported by: ALBERTO VERDE on 02/16/12 1619 Amphet Asp/Amphet/D-Amphet (Adderall 30 Mg Tablet) 30 Mg Tablet, 30 MG PO BID, (Reported) Entered as Reported by: ALBERTO VERDE on 02/16/12 1619 Azithromycin (Azithromycin) 250 Mg Tablet, 250 MG PO DAILY Prescribed by: AISSATOU REDDY on 10/30/17 1240 Cefdinir (Cefdinir) 300 Mg Capsule, 300 MG PO BID Prescribed by: AISSATOU REDDY on 10/30/17 1240 Cephalexin (Cephalexin) 500 Mg Tablet, 500 MG PO QID Prescribed by: AISSATOU REDDY on 07/22/19 1344 Doxycycline Hyclate (Doxycycline Hyclate) 100 Mg Tablet, 100 MG PO BID Prescribed by: AISSATOU REDDY on 12/27/20 1159 Doxycycline Monohydrate (Doxycycline Monohydrate) 100 Mg Tablet, 100 MG PO BID PRN Prescribed by: TAL JAMISON on 04/07/23 1708 Emtricitab/Rilpivirine/Tenofov (Complera Tablet) 1 Each Tablet, 1 EACH PO DAILY, (Reported) Entered as Reported by: ALBERTO VERDE on 07/20/13 1706 Meclizine HCl (Meclizine HCl) 25 Mg Tablet, 25 MG PO TID PRN for DIZZINESS Prescribed by: AISSATOU REDDY on 10/18/18 1214 Mupirocin (Mupirocin) 1 Gm Oin.pf.marissa, 1 GM TP BID Prescribed by: REJI MANN on 02/04/21 1348 Olanzapine (Olanzapine Odt) 5 Mg Tab.rapdis, 5 MG PO DAILY Prescribed by: ERLINDA LANGFORD on 05/19/23 1520 Ondansetron (Ondansetron Odt) 4 Mg Tab.rapdis, 4 MG PO Q6H PRN for NAUSEA/VOMITING Prescribed by: GERRI SHAH on 12/07/20 2114 Ondansetron (Ondansetron Odt) 4 Mg Tab.rapdis, 4 MG SL Q8H PRN for NAUSEA/VOMITING Prescribed by: REJI MANN on 04/08/23 1723 Oxycodone HCl/Acetaminophen (Oxycodone-Acetaminophen 5-325) 1 Each Tablet, 1 EACH PO Q6H PRN for PAIN Prescribed by: MUSHTAQ MAYO on 07/27/17 0310 Oxycodone Hcl (Oxycontin) 60 Mg Tab.sr.12h, 60 MG PO BID, (Reported) Entered as Reported by: JAMILA GARDUNO on 11/26/13 1412 Oxycodone Hcl/Acetaminophen (Oxycodone-Acetaminophen 10-325) 1 Each Tablet, 1 EACH PO Q6H Prescribed by: ERLINDA LANGFORD on 09/08/14 1557 Prednisone (Prednisone) 20 Mg Tab, 40 MG PO DAILY Prescribed by: TAL JAMISON on 04/07/23 1656 Sulfamethoxazole/Trimethoprim (Bactrim Ds Tablet) 1 Each Tablet, 1 EACH PO BID Prescribed by: MUSHTAQ MAYO on 07/27/17 0310 Sulfamethoxazole/Trimethoprim (Bactrim Ds Tablet) 1 Each Tablet, 1 EACH PO BID Prescribed by: AISSATOU REDDY on 07/22/19 1344 Review of Systems Constitutional: see HPI (TOMY KARIMI APRN) Past [id number]-[id number]-Qavjkb Hx Immunizations Up To Date Tetanus Booster (TDap): Less than 5yrs First/Initial COVID19 Vaccinat: 2020 Second COVID19 Vaccination [employer]: 2020 Third COVID19 Vaccination Date: 2021 (TOMY KARIMI APRN) Seasonal Allergies Seasonal Allergies: No (TOMY KARIMI APRN) Past Medical History Surgery/Hospitalization HX: HIV/AIDS Surgeries: Yes (FX JAW) Appendectomy, Gallbladder Respiratory: Yes Pulmonary Fibrosis Cardiac: Yes Syncope Neurological: No Reproductive Disorders: No Sexually Transmitted Disease: Yes (HERPES) HIV/AIDS: Yes (HEP C ALSO) Genitourinary: No Gastrointestinal: Yes (HEP C) Chronic Constipation, Hepatitis Musculoskeletal: Yes (Chronic knee pain) Fibromyalgia, Chronic Back Pain Endocrine: No HEENT: No Cancer: No Psychosocial: Yes ADD/ADHD, Anxiety, Depression Integumentary: Yes (HX HERPES) Blood Disorders: No (TOMY KARIMI APRN) Family Medical History Diabetes (TOMY KARIMI APRN) Physical Exam Vital Signs - First Documented 09/05/23 09/06/23 12:28 11:53 Temp 36.4 Pulse 117 Resp 18 B/P (MAP) 153/107 (122) Pulse Ox 99 O2 Delivery Room Air ([facility]) Capillary Refill : Less Than 3 Seconds (TOMY KARIMI APRN) Height, Weight, BMI Height: 5'4.00" Weight: 150lbs. oz. [id number]; 21.00 BMI Method:Estimated General Appearance: WD/WN, no apparent distress Neck: supple, normal inspection Respiratory: lungs clear, normal breath sounds, no respiratory distress, no accessory muscle use Cardiovascular: regular rate, rhythm Extremities: normal range of motion, normal inspection Neurologic/Psychiatric: alert, normal mood/affect Appearance/Memory: appropriate appearance, appropriate insight Behavior/Eye Contact: cooperative, good eye contact, normal speech Thoughts/Hallucinations: normal thought pattern, no apparent hallucination Skin: normal color, warm/dry (TOMY KARIMI APRN) Progress/Results/Core Measures Results/Orders Lab Results Laboratory Tests Test 09/05/23 12:52 09/05/23 12:55 Range/Units Urine Color YELLOW Urine Clarity CLEAR Urine pH 6.0 5-9 Urine Specific [place] 1.020 1.016-1.022 Urine Protein 1+ H NEGATIVE Urine Glucose (UA) NEGATIVE NEGATIVE Urine Ketones NEGATIVE NEGATIVE Urine Nitrite NEGATIVE NEGATIVE Urine Bilirubin NEGATIVE NEGATIVE Urine Urobilinogen 4.0 < = 1.0 MG/DL Urine Leukocyte Esterase NEGATIVE NEGATIVE Urine RBC (Auto) NEGATIVE NEGATIVE Urine RBC NONE /HPF Urine WBC NONE /HPF Urine Squamous Epithelial Cells RARE /HPF Urine Crystals NONE /LPF Urine Bacteria NEGATIVE /HPF Urine Casts NONE /LPF Urine Mucus NEGATIVE /LPF Urine Culture Indicated NO Urine Opiates Screen NEGATIVE NEGATIVE Urine Oxycodone Screen NEGATIVE NEGATIVE Urine Methadone Screen NEGATIVE NEGATIVE Urine Barbiturates Screen NEGATIVE NEGATIVE Ur Tricyclic Antidepressants Screen NEGATIVE NEGATIVE Urine Phencyclidine Screen NEGATIVE NEGATIVE Urine Amphetamines Screen POSITIVE H NEGATIVE Urine Methamphetamines Screen POSITIVE H NEGATIVE Urine Benzodiazepines Screen POSITIVE H NEGATIVE Urine Cocaine Screen NEGATIVE NEGATIVE Urine Cannabinoids Screen NEGATIVE NEGATIVE SARS-CoV-2 RNA (RT-PCR) Not Detected Not Detecte White Blood Count 6.9 4.3-11.0 10^3/uL Red Blood Count 5.21 4.30-5.52 10^6/uL Hemoglobin 12.5 L 13.3-17.7 g/dL Hematocrit 39 L 40-54 % Mean Corpuscular Volume 75 L 80-99 fL Mean Corpuscular Hemoglobin 24 L 25-34 pg Mean Corpuscular Hemoglobin Concent 32 32-36 g/dL Red Cell Distribution Width 12.8 10.0-14.5 % Platelet Count 239 130-400 10^3/uL Mean Platelet Volume 12.2 9.0-12.2 fL Immature Granulocyte % (Auto) 0 % Neutrophils (%) (Auto) 54 42-75 % Lymphocytes (%) (Auto) 32 12-44 % Monocytes (%) (Auto) 12 0-12 % Eosinophils (%) (Auto) 2 0-10 % Basophils (%) (Auto) 1 0-10 % Neutrophils # (Auto) 3.7 1.8-7.8 10^3/uL Lymphocytes # (Auto) 2.2 1.0-4.0 10^3/uL Monocytes # (Auto) 0.8 0.0-1.0 10^3/uL Eosinophils # (Auto) 0.1 0.0-0.3 10^3/uL Basophils # (Auto) 0.1 0.0-0.1 10^3/uL Immature Granulocyte # (Auto) 0.0 0.0-0.1 10^3/uL Sodium Level 141 135-145 MMOL/L Potassium Level 3.7 3.6-5.0 MMOL/L Chloride Level 107 98-107 MMOL/L Carbon Dioxide Level 23 21-32 MMOL/L Anion Gap 11 5-14 MMOL/L Blood Urea Nitrogen 23 H 7-18 MG/DL Creatinine 0.90 0.60-1.30 MG/DL Estimat Glomerular Filtration Rate 99 BUN/Creatinine Ratio 26 Glucose Level 96 70-105 MG/DL Calcium Level 9.0 8.5-10.1 MG/DL Corrected Calcium 9.1 8.5-10.1 MG/DL Total Bilirubin 0.6 0.1-1.0 MG/DL Aspartate Amino Transf (AST/SGOT) 45 H 5-34 U/L Alanine Aminotransferase (ALT/SGPT) 52 0-55 U/L Alkaline Phosphatase 60 40-136 U/L Total Protein 7.4 6.4-8.2 GM/DL Albumin 3.9 3.2-4.5 GM/DL TSH [place] Testing 0.76 0.35-4.94 UIU/ML Salicylates Level < 5.0 L 5.0-20.0 MG/DL Acetaminophen Level < 10 L 10-30 UG/ML Serum Alcohol < 10 <10 MG/DL (LEANNA MATA DO) Blood Pressure Mean: 122 Progress Progress Note : Progress Note Patient seen and evaluated, resting comfortably in bed, no acute distress. Based on exam and symptoms, psychiatric medical clearance exam initiated including CBC, CMP, alcohol level, salicylate level, acetaminophen level, urinalysis, urine drug screen, thyroid analyzer, EKG, COVID swab. Patient placed on 15-minute checks. Patient changed into gown, all belongings removed from room, room stripped of unnecessary equipment. Patient requesting food, meal tray has been ordered. 1354 Labs and EKG reviewed. CBC shows anemia, 12.5 hemoglobin, hematocrit 39, these are improved from previous labs. CMP shows slightly elevated BUN 23, normal creatinine, GFR 99, BUN is improved from previous labs. AST slightly elevated 45. This is improved from previous labs. Urine drug screen shows positive for amphetamines, methamphetamines, and benzos. Alcohol, salicylates, Tylenol negative. Urinalysis negative for infection. COVID-negative. TSH normal. Patient is medically cleared for mental health evaluation. Nursing staff is calling for evaluation at this time. 1600 patient was evaluated by [facility]. They recommend admission. At this time patient is voluntary. They will begin searching for placement. [id number] patient handed off to Dr. Mata, ER physician, at this time. (TOMY KARIMI APRN) Initial ECG Impression Date: Sep 05, 2023 Initial ECG Impression Time: 13:07 Initial ECG Rate: 85 Initial ECG Rhythm: Normal Sinus Initial ECG Intervals: QT Initial ECG Intervals QTc 425 QTc 506 Initial ECG Impression: Nonspecific Changes Initial ECG Comparisson: Unchanged Comment No significant Q waves, ST elevation, or T wave inversion. Left ventricular hypertrophy noted. Prolonged QTc. (TOMY KARIMI APRN) Departure Communication (Admissions) I assumed care of the patient at shift change and maintained care throughout the day. He remained calm, cooperative. He was accepted to the [facility] at [facility] however no transport was immediately available. He rested comfortably in bed, sleeping through most of the night. He still pending transport at the time of shift change in the morning. Care handed off to Dr. Nichols (LEANNA MATA DO) Impression Primary Impression: Suicidal ideation Disposition: XFER SHT-TRM HOSP Condition: Stable Departure-Patient Inst. Referrals: [facility] – [place] (PCP/Family) Primary Care Physician TOMY KARIMI APRN Sep 05, 2023 12:44 LEANNA MATA DO Sep 07, 2023 06:26
[2023-09-05 13:05] LABS: BASOPHILS # (AUTO) 0.1 10^3/uL (0.0-0.1); BASOPHILS % (AUTO) 1 % (0-10); EOSINOPHILS # (AUTO) 0.1 10^3/uL (0.0-0.3); EOSINOPHILS % (AUTO) 2 % (0-10); HEMATOCRIT 39 % (40-54); HEMOGLOBIN 12.5 g/dL (13.3-17.7); LYMPHOCYTES # (AUTO) 2.2 10^3/uL (1.0-4.0); LYMPHOCYTES % (AUTO) 32 % (12-44); MEAN CORPUSCULAR HEMOGLOBIN 24 pg (25-34); MEAN CORPUSCULAR HGB CONC 32 g/dL (32-36); MEAN CORPUSCULAR VOLUME 75 fL (80-99); MEAN PLATELET VOLUME 12.2 fL (9.0-12.2); MONOCYTES # (AUTO) 0.8 10^3/uL (0.0-1.0); MONOCYTES % (AUTO) 12 % (0-12); NEUTROPHILS # (AUTO) 3.7 10^3/uL (1.8-7.8); NEUTROPHILS % (AUTO) 54 % (42-75); PLATELET COUNT 239 10^3/uL (130-400); WHITE BLOOD COUNT 6.9 10^3/uL (4.3-11.0)
[2023-09-05 13:08] LABS: BACTERIA,URINE NEGATIVE /HPF; BILIRUBIN,URINE NEGATIVE (NEGATIVE); CLARITY,URINE CLEAR; COLOR,URINE YELLOW; GLUCOSE, URINE (UA) NEGATIVE (NEGATIVE); KETONES,URINE NEGATIVE (NEGATIVE); LEUKOCYTE ESTERASE ,URINE NEGATIVE (NEGATIVE); NITRITE,URINE NEGATIVE (NEGATIVE); PROTEIN,URINE 1+ (NEGATIVE); SQUAMOUS EPITHELIAL CELL,UR RARE /HPF
[2023-09-05 13:09] LABS: COCAINE SCREEN URINE NEGATIVE (NEGATIVE)
[2023-09-05 13:10] LABS: AMPHETAMINE SCREEN, URINE POSITIVE (NEGATIVE); BARBITURATE SCREEN URINE NEGATIVE (NEGATIVE); CANNABINOID SCREEN, URINE NEGATIVE (NEGATIVE); METHADONE STAT NEGATIVE (NEGATIVE); OPIATE SCREEN URINE NEGATIVE (NEGATIVE); OXYCODONE STAT NEGATIVE (NEGATIVE); TRICYCLIC ANTIDEPRESSANTS SCRE NEGATIVE (NEGATIVE)
[2023-09-05 13:21] LABS: ALBUMIN 3.9 GM/DL (3.2-4.5); CHLORIDE 107 MMOL/L (98-107); POTASSIUM 3.7 MMOL/L (3.6-5.0); SODIUM 141 MMOL/L (135-145)
[2023-09-05 13:24] LABS: GLUCOSE 96 MG/DL (70-105); TOTAL PROTEIN 7.4 GM/DL (6.4-8.2)
[2023-09-05 13:25] LABS: CARBON DIOXIDE 23 MMOL/L (21-32)
[2023-09-05 13:26] LABS: BILIRUBIN,TOTAL 0.6 MG/DL (0.1-1.0)
[2023-09-05 13:28] LABS: ALKALINE PHOSPHATASE 60 U/L (40-136); GFR ESTIMATED 99
[2023-09-05 13:29] LABS: BUN/CREATININE RATIO 26
[2023-09-05 13:30] LABS: SALICYLATE < 5.0 MG/DL (5.0-20.0)
[2023-09-05 13:31] LABS: ALANINE AMINOTRANSFERASE 52 U/L (0-55)
[2023-09-05 13:32] LABS: ACETAMINOPHEN < 10 UG/ML (10-30)
[2023-09-05 13:51] LABS: TSH (THYROID ANALYZER) 0.76 UIU/ML (0.35-4.94)
[2023-09-06 11:53] VITALS: BP 142/88
== END 2023-09-06 12:49 ==
LOC: EDUNIT# 12:26 → ER 12:27
DX: R45.851 Suicidal ideations (principal)
CPT/HCPCS: 80053; 80306; 81000; 84443; 85025; 87636; 99284; G0480 ×3; 36415; 80320; 80329; 93005